=== PATIENT | female | born 1940 | race Caucasian/White ===

== ENCOUNTER → 2016-10-13 | Outpatient (CLI) | payer MEDICARE, BC ==
[2016-10-13 13:41] VITALS: BP 101/62; PULSE 77; RESP 16; TEMP 98.1; BMI 40.9
[2016-10-13 15:19] LABS: CH 30.7; CHCM 32.9; HCT 38.6 % (34.0-46.0); HDW 2.41; HGB 12.6 gm/dL (11.4-16.0); MCH 30.5 pg (25.0-35.0); MCHC 32.6 g/dL (31.0-37.0); MCV 93.6 fL (80.0-100.0); Mean Platelet Volume 6.8; RBC 4.12 m/uL (3.80-5.40); RDW 12.6 % (11.5-15.5); WBC 8.8 k/uL (3.8-10.6)
[2016-10-13 15:42] LABS: ALT 26 U/L (9-52); AST 22 U/L (14-36); Alkaline Phosphatase 92 U/L (38-126); Anion Gap 13 mmol/L; Blood Urea Nitrogen 9 mg/dL (7-17); Calcium 9.9 mg/dL (8.4-10.2); Carbon Dioxide 24 mmol/L (22-30); Chloride 104 mmol/L (98-107); Cholesterol 206 mg/dL (<200); Glucose 96 mg/dL (74-99); HDL Cholesterol 69 mg/dL (40-60); Iron 61 ug/dL (37-170); Non-African American GFR(MDRD) >60 (>60 ml/min/1.73 sqM); Potassium 4.6 mmol/L (3.5-5.1); Sodium 141 mmol/L (137-145); Total Bilirubin 0.6 mg/dL (0.2-1.3); Total Protein 7.2 g/dL (6.3-8.2); Triglycerides 118 mg/dL (<150)
[2016-10-13 15:51] LABS: % Iron Saturation 15.6 % (20-50); Total Iron Binding Capacity 392 ug/dL (265-497)
[2016-10-13 16:46] LABS: Vitamin B12 393 pg/mL
== END | disposition home or self-care (01) ==
LOC: BARWHC3 12:49
PROVIDERS: ATTEND Surgery Plastic and Reconstructive Surgery
DX: Z01.818 Encounter for other preprocedural examination (principal); Z68.41 Body mass index [BMI] 40.0-44.9, adult; E66.01 Morbid (severe) obesity due to excess calories; E88.81 Metabolic syndrome and other insulin resistance; D50.8 Other iron deficiency anemias; E44.0 Moderate protein-calorie malnutrition; E55.9 Vitamin D deficiency, unspecified; I11.9 Hypertensive heart disease without heart failure; G47.30 Sleep apnea, unspecified
CPT/HCPCS: 84425; 80061; 80053; 82607; 82728; 83036; 82746; 83540; 83550; 84443; 85027; 82306; 36415; G0463; 99201

== ENCOUNTER → 2016-11-08 | Outpatient (CLI) | payer MEDICARE, BC ==
[2016-11-08 17:28] VITALS: BMI 43.0
== END | disposition home or self-care (01) ==
LOC: BARWHC3 08:26
PROVIDERS: ATTEND Surgery Plastic and Reconstructive Surgery
DX: E66.01 Morbid (severe) obesity due to excess calories (principal); Z71.3 Dietary counseling and surveillance
CPT/HCPCS: 97804

== ENCOUNTER → 2016-11-29 | Outpatient (CLI) | payer MEDICARE, BC ==
[2016-11-29 10:09] LABS: Basophils # (A) 0.1 k/uL (0-0.2); Basophils % (A) 1 %; CH 30.4; CHCM 32.7; Eosinophils # (A) 0.4 k/uL (0-0.7); Eosinophils % (A) 4 %; HCT 46.6 % (34.0-46.0); HDW 2.17; HGB 14.9 gm/dL (11.4-16.0); Luc # (Auto) 0.23; Luc % (Auto) 3; Lymphocytes # (A) 1.5 k/uL (1.0-4.8); Lymphocytes % (A) 17 %; MCH 29.9 pg (25.0-35.0); MCV 93.4 fL (80.0-100.0); Mean Platelet Volume 7.6; Monocytes # (A) 0.7 k/uL (0-1.0); Monocytes % (A) 8 %; Neutrophils # (A) 6.1 k/uL (1.3-7.7); Neutrophils % (A) 68 %; RBC 4.99 m/uL (3.80-5.40); RDW 13.5 % (11.5-15.5); WBC 8.9 k/uL (3.8-10.6); WBC (Perox) 9.07
[2016-11-29 10:15] LABS: ALT 28 U/L (9-52); AST 23 U/L (14-36); Alkaline Phosphatase 68 U/L (38-126); Anion Gap 15 mmol/L; Blood Urea Nitrogen 17 mg/dL (7-17); Carbon Dioxide 24 mmol/L (22-30); Chloride 98 mmol/L (98-107); Glucose 80 mg/dL (74-99); Non-African American GFR(MDRD) 57 (>60 ml/min/1.73 sqM); Potassium 4.4 mmol/L (3.5-5.1); Sodium 137 mmol/L (137-145); Total Bilirubin 0.6 mg/dL (0.2-1.3); Total Protein 7.1 g/dL (6.3-8.2)
== END | disposition home or self-care (01) ==
LOC: LABPAT 09:23
PROVIDERS: ATTEND Surgery Plastic and Reconstructive Surgery
DX: Z01.812 Encounter for preprocedural laboratory examination (principal)
CPT/HCPCS: 80053; 85025

== ENCOUNTER 2016-12-06 05:59 | Inpatient (IN) | payer MEDICARE, BC ==
[~2016-12-06 05:59] MED LIST: ACETAMINOPHEN IV (For NPO) 1,000 MG in EMPTY BAG 1 BAG IVPB ONE; AMPICILLIN-SULBACTAM 3 GM in SODIUM CHLORIDE 0.9% 100 ML IVPB ONE; CHLORHEXIDINE GLUCONATE 15 ML CUP MUCOUS MEM ONE; DEXAMETHASONE SOD PHOSPHATE 10 MG/ML 1 ML VIAL IV ONE; ENOXAPARIN 40 MG/0.4 ML SYRINGE SQ STA; HYDROmorphone 1 MG/ML 1 ML SYRINGE IVP PRN; MIDAZOLAM 2 MG/2 ML VIAL IV PRN; ONDANSETRON 4 MG/2 ML VIAL IVP ONE; PANTOPRAZOLE 40 MG/10 ML VIAL IV STA; ceFAZolin 2 GM in SODIUM CHLORIDE 0.9% 100 ML IVPB ONE
[2016-12-06] MEDS ORDERED: LIDOCAINE 1% 20 ML VIAL (10MG/ML) FOR IV START INTRADERMA ONE (06:45)
[2016-12-06] MEDS: LACTATED RINGERS 1,000 ML IV SCH ×5 (06:45→22:57)
[2016-12-06] MEDS ORDERED: ALBUTEROL NEBULIZED 2.5 MG/3 ML INHALATION STA (06:56)
--- NOTE | 2016-12-06 07:21 | P.GSHP ---
History of Present Illness H&P Date: 12/06/16 CHIEF COMPLAINT: Morbid obesity. HISTORY OF PRESENT ILLNESS: The patient is a 76-year-old female who presents with a long-standing history of morbid obesity. At her height of 5 foot 3.75, her ideal body weight is 140 pounds. Today she comes in at her heaviest of 237 pounds. She is 97 pounds overweight. She reports developing lower back pain including hip pain from her obesity. She has also developed obstructive sleep apnea as well as hypertensive heart disease. She has tried weight loss with minimal success with caloric restriction. She has a previous history of open thoracic approach diaphragmatic hiatal hernia in 2013 now with recurrence and with severe gastroesophageal reflux disease. For definitive management, she is looking into the anti-reflux operation such as Jacob-en-Y gastric bypass. She denies any family history or personal history of Crohn's disease, gastrointestinal cancer, DVTs or pulmonary embolisms. She has completed pulmonary risk assessment with her senior clinical sas programmer to control her asthma. PAST MEDICAL HISTORY: 1. Morbid obesity. 2. Hypertensive heart disease. 3. Symptomatic paraesophageal diaphragmatic hiatal hernia. 4. Gastroesophageal reflux disease. 5. Chronic obstructive pulmonary disease with asthma. 6. Obstructive sleep apnea. 7. Hyperlipidemia. 8. Depression. 9. History of skin cancer. 10. Motion sickness. PAST SURGICAL HISTORY: 1. Open thoracic approach diaphragmatic hiatal hernia in 2013 at [facility]. 2. Appendectomy. 3. Bladder suspension. 4. Excision of skin cancer. 5. Hysterectomy. HOME MEDICATIONS: 1. Norvasc. 2. Omeprazole. 3. Pravachol. 4. Lopressor. 5. Singulair. 6. Prinivil. 7. Celexa. 8. Xanax. 9. Albuterol inhaler. 10. Albuterol nebulizer. ALLERGIES: 1. Adenosine. 2. Iodine. 3. Latex. SOCIAL HISTORY: No active tobacco use. FAMILY HISTORY: Denies any DVTs, pulmonary embolisms in her family. Denies any ulcerative colitis disease or Crohn's. She does have a family history of morbid obesity. REVIEW OF ORGAN SYSTEMS: CONSTITUTIONAL: At her height of 5 foot 3.75, her ideal body weight is 140 pounds. She comes in at her heaviest of 237 pounds. She is 97 pounds overweight. HEENT: Denies any active troubles with vision or hearing. Has dysphagia from recurrent diaphragmatic hiatal hernia. ENDOCRINE: No reports of diabetes or hypothyroidism. CARDIOVASCULAR: No reports of palpitations or heart attacks or chest pain. RESPIRATORY: History of asthma including sleep apnea. GI: Denies any bright red blood per rectum, diarrhea or constipation. Has gastroesophageal reflux disease. MUSCULOSKELETAL: Describes generalized muscle aches, including lower back pain or joint pain. NEURO: There were no reports of headaches or seizure disorders. PSYCH: Has depression without suicidal ideation. Has anxiety. HEMATOLOGIC: Denies any abnormal bleeding or bruising. PHYSICAL EXAM: VITAL SIGNS: height 5 foot 3.75 inches, weight 237 pounds. BMI 41.0. GENERAL: Well-developed female in no acute distress. HEENT: No scleral icterus. Extraocular was grossly intact. No nasal drainage. NECK: Supple without lymphadenopathy. CHEST: Nonlabored respirations with equal bilateral excursions. CARDIOVASCULAR: Regular rate. Distal 2+ pulses. ABDOMEN: Obese, soft, nontender, nondistended. MUSCULOSKELETAL: No clubbing, cyanosis, or edema. Gross strength 5/5 distal lower extremities. NEURO: No focal or lateralizing signs. Cranial nerves 2 through 12 grossly within normal limits. PSYCH: Appropriate affect. Alert and oriented to person, place and time. ASSESSMENT: 1. Morbid obesity due to excess calories. 2. Body mass index of 41.0 2. Hypertensive heart disease. 3. Symptomatic paraesophageal diaphragmatic hiatal hernia. 4. Gastroesophageal reflux disease. 5. Chronic obstructive pulmonary disease with asthma. 6. Obstructive sleep apnea. 7. Hyperlipidemia. 8. Depression. 9. History of skin cancer. 10. Motion sickness. 11. Osteoarthritis of the bilateral hips. 12. Osteoarthritis of the bilateral knees. 13. Vitamin D deficiency. PLAN: 1. She has history of previous diaphragmatic hiatal hernia which puts her at risk for complications such as bleeding, infection, stricture, leaks. As such, this is a revisional procedure with higher risks. 2. She has completed pulmonary risk assessment for the severity of her COPD.. 3. The [place] [facility] data for the band, sleeve, gastric bypass were reviewed including complications. With her history of previous gastric surgery, a gastric bypass is being sought as an anti-reflux operation as well. 3. Inpatient hospitalization greater than 2 days anticipated. 4. DVT prophylaxis. 5. Antibiotic prophylaxis. 6. With her previous history of gastric surgery, ideal approach with a robotic- assisted laparoscopic surgery was reviewed in detail. Anticipated length of surgery beyond 4 hours also discussed. Past Medical History Past Medical History: Asthma, Cancer, GERD/Reflux, Hyperlipidemia, Hypertension Additional Past Medical History / Comment(s): hiatal hernia, hx skin cancer History of Any Multi-Drug Resistant Organisms: None Reported Past Surgical History: Appendectomy, Bladder Surgery, Hernia Repair, Hysterectomy Additional Past Surgical History / Comment(s): hiatal hernia repair Past Anesthesia/Blood Transfusion Reactions: Motion Sickness Additional Past Anesthesia/Blood Transfusion Reaction / Comment(s): no blood tranfusions Past Psychological History: No Psychological Hx Reported, Depression Past Alcohol Use History: Rare Additional Past Alcohol Use History / Comment(s): only drinks one drink at occasional weddings - Past Family History Mother Family Medical History: No Reported History Additional Family Medical History / Comment(s): at age 93 from natural causes Father Family Medical History: Coronary Artery Disease (CAD) Additional Family Medical History / Comment(s): at age 63 from suspected heart attack Brother(s) Family Medical History: Cancer Medications and Allergies Home Medications Medication Instructions Recorded Confirmed Type Albuterol Nebulized [Ventolin 2.5 mg INHALATION BID PRN 03/23/16 11/26/16 History Nebulized] Citalopram Hydrobromide [CeleXA] 20 mg PO HS 03/23/16 11/26/16 History Lisinopril [Prinivil] 5 mg PO HS 03/23/16 11/26/16 History Metoprolol Tartrate [Lopressor] 25 mg PO BID 03/23/16 11/26/16 History Pravastatin Sodium [Pravachol] 80 mg PO HS 03/23/16 11/26/16 History amLODIPine [Norvasc] 10 mg PO HS 03/23/16 11/26/16 History ALPRAZolam [Xanax] 0.25 mg PO Q6HR PRN 10/13/16 11/26/16 History Albuterol Inhaler [Ventolin Hfa 1 - 2 puff INHALATION Q6HR PRN 10/13/16 History Inhaler] Montelukast [Singulair] 10 mg PO HS 10/13/16 11/26/16 History Ipratropium Nebulized [Atrovent 0.5 mg INHALATION DAILY PRN 11/26/16 11/26/16 History Nebulized] Omeprazole 40 mg PO DAILY PRN 11/26/16 11/26/16 History Allergies Allergy/AdvReac Type Severity Reaction Status Date / Time adenosine Allergy Anaphylaxis Verified 10/13/16 13:30 iodine Allergy Rash/Hives Verified 03/23/16 08:33 latex Allergy Itching Verified 03/23/16 08:40 nickel Allergy Rash/Hives Verified 11/26/16 11:46 Surgical - Exam Vital Signs Temp Pulse Resp BP Pulse Ox 97.1 F L 68 16 120/72 93 L 12/06/16 06:22 12/06/16 06:22 12/06/16 06:22 12/06/16 06:22 12/06/16 06:22
[2016-12-06] MEDS ORDERED: ROCURONIUM BROMIDE 10 MG/ML 10 ML VIAL IV ONE (07:36)
[2016-12-06] MEDS ORDERED: PHENYLEPHRINE-0.9% NACL SYG 1 MG/10 ML SYRINGE ONE (07:36)
[2016-12-06] MEDS ORDERED: fentaNYL (PF) 50 MCG/ML 2 ML AMP ONE (07:36)
[2016-12-06] MEDS ORDERED: ePHEDrine SULFATE/0.9% NACL/PF 50 MG/5 ML SYRINGE IV ONE (07:36)
[2016-12-06] MEDS ORDERED: GLYCOPYRROLATE 0.2 MG/ML 2 ML VIAL ONE (07:36)
[2016-12-06] MEDS ORDERED: MIDAZOLAM 2 MG/2 ML VIAL ONE (07:36)
[2016-12-06] MEDS ORDERED: NEOSTIGMINE 1 MG/ML 10 ML VIAL ONE (07:36)
[2016-12-06] MEDS ORDERED: PROPOFOL 10 MG/ML 20 ML VIAL IV ONE (07:36)
[2016-12-06] MEDS ORDERED: LIDOCAINE 1% INJ 10MG/ML (20 ML MDV) ONE (07:36)
[2016-12-06] MEDS ORDERED: SUCCINYLCHOLINE CHLORIDE 100 MG/5 ML SYR IV ONE (07:36)
[2016-12-06] MEDS ORDERED: BUPIVACAINE (PF) 0.5% 30 ML VIAL SQ ONE (09:00)
[2016-12-06] MEDS ORDERED: LACTATED RINGERS 1,000 ML IV ONE ×2 (09:18→13:37)
[2016-12-06] MEDS ORDERED: NALOXONE 0.4 MG/ML 1 ML VIAL IV PRN (15:15)
--- NOTE | 2016-12-06 15:34 | P.PCN ---
Date of Procedure: 12/06/16 Preoperative Diagnosis: Morbid obesity, BMI 40, recurrent paraesophageal diaphragmatic hiatal hernia, GERD Postoperative Diagnosis: Same, peritoneal adhesions, recurrent 6 cm incarcerated diaphragmatic hiatal hernia, history of Rylee fundoplasty Procedure(s) Performed: 1. Laparoscopic reduction and repair of recurrent incarcerated diaphragmatic paraesophageal hiatal hernia 6 cm 2. Laparoscopic takedown of previous Rylee fundoplasty with partial gastrectomy superior pole of the stomach. 3. Laparoscopic gastric bypass 100 cm Jacob limb, 25 mm Orvil 4. Intraoperative esophagogastrojejunoscopy 5. Laparoscopic lysis of adhesions over 3 hours 6. Partial gastrectomy superior pole stomach. Implants: [employer] Biopatch A 8 x 8 cm Anesthesia: GETA, local Surgeon: Nika Arriaga Estimated Blood Loss (ml): 25 Pathology: other (Partial gastrectomy) Condition: stable Disposition: floor Indications for Procedure: Operative Findings: 1. Incarcerated Rylee fundoplasty along the mediastinum required extensive lysis of adhesions and takedown over 3-1/2-4 hours from recurrent paraesophageal diaphragmatic hiatal hernia 6 cm. 2. Repair of the hiatus performed consistent with 56-Pashto bougie, 6 inch V- VLOC stitch used. 3. 8 staplers used for pouch and partial gastrectomy 4. Negative leak test with generous sized donuts 5. Orvil consistent with 25 mm Description of Procedure:
[2016-12-06 15:52] VITALS: BMI 39.2
[2016-12-06] MEDS: 0.9% NACL WITH KCL 20 MEQ/L 1,000 ML IV SCH (16:46)
[2016-12-06] MEDS: HYOSCYAMINE ORAL DROPS 1.875 MG/15 ML BOTTLE PO SCH (18:04)
[2016-12-06] MEDS: SIMETHICONE 40 MG/0.6 ML DROPS 2,000 MG/30 ML BOTTLE PO SCH (18:04)
[2016-12-06] MEDS: ALBUTEROL NEBULIZED 2.5 MG/3 ML INHALATION SCH (19:40)
[2016-12-06] MEDS: HYDROmorphone 1 MG/ML 1 ML SYRINGE IVP PRN (20:23)
[2016-12-06] MEDS ORDERED: ONDANSETRON 4 MG/2 ML VIAL IVP PRN (20:30)
[2016-12-06] MEDS: METOCLOPRAMIDE 5 MG/ML 2 ML VIAL IVP SCH (21:36)
[2016-12-06] MEDS: MAGNESIUM SULFATE-D5W PMX 1 GM in DEXTROSE/WATER 1 100ML.BAG IVPB SCH ×2 (21:36→23:48)
--- NOTE | 2016-12-06 22:59 | P.PN ---
Progress Note - Text Patient seen and evaluated this evening. She denies any increased abdominal pain. She is resting comfortably. Recommend nothing by mouth for the next 24- 48 hours. May have upper GI on Tuesday with start of clears.
[2016-12-07] MEDS: HYOSCYAMINE ORAL DROPS 1.875 MG/15 ML BOTTLE PO SCH ×4 (00:19→17:33)
[2016-12-07] MEDS: SIMETHICONE 40 MG/0.6 ML DROPS 2,000 MG/30 ML BOTTLE PO SCH ×4 (00:20→17:34)
[2016-12-07] MEDS: 0.9% NACL WITH KCL 20 MEQ/L 1,000 ML IV SCH ×2 (02:09→07:30)
[2016-12-07] MEDS: METOCLOPRAMIDE 5 MG/ML 2 ML VIAL IVP SCH ×4 (03:04→21:30)
[2016-12-07 07:23] LABS: Basophils % (A) 0 %; CH 30.5; CHCM 32.1; Eosinophils % (A) 0 %; HCT 38.2 % (34.0-46.0); HDW 2.19; Luc # (Auto) 0.19; Luc % (Auto) 2; Lymphocytes # (A) 0.7 k/uL (1.0-4.8); Lymphocytes % (A) 6 %; MCH 29.9 pg (25.0-35.0); MCHC 31.3 g/dL (31.0-37.0); MCV 95.5 fL (80.0-100.0); Mean Platelet Volume 7.4; Monocytes # (A) 0.7 k/uL (0-1.0); Monocytes % (A) 6 %; Neutrophils # (A) 9.3 k/uL (1.3-7.7); Neutrophils % (A) 85 %; RDW 14.1 % (11.5-15.5); WBC 10.9 k/uL (3.8-10.6); WBC (Perox) 11.14
[2016-12-07] MEDS: LACTATED RINGERS 1,000 ML IV SCH ×4 (07:30→23:22)
[2016-12-07 08:12] LABS: Anion Gap 11 mmol/L; Blood Urea Nitrogen 10 mg/dL (7-17); Calcium 8.4 mg/dL (8.4-10.2); Carbon Dioxide 19 mmol/L (22-30); Chloride 108 mmol/L (98-107); Magnesium 2.1 mg/dL (1.6-2.3); Non-African American GFR(MDRD) >60 (>60 ml/min/1.73 sqM); Potassium 4.6 mmol/L (3.5-5.1); Sodium 138 mmol/L (137-145)
[2016-12-07] MEDS ORDERED: SODIUM CHLORIDE 0.9% 1,000 ML BAG ONE (08:23)
[2016-12-07] MEDS: ALBUTEROL NEBULIZED 2.5 MG/3 ML INHALATION SCH ×5 (09:07→19:52)
[2016-12-07] MEDS: HYDROmorphone 1 MG/ML 1 ML SYRINGE IVP PRN ×3 (09:12→17:48)
[2016-12-07] MEDS: ENOXAPARIN 40 MG/0.4 ML SYRINGE SQ SCH (09:16)
[2016-12-07] MEDS: PANTOPRAZOLE 40 MG/10 ML VIAL IV SCH (09:23)
[2016-12-07] MEDS: 1: MVI, ADULT NO.4 WITH VIT K 10 ML, THIAMINE 100 MG, FOLIC ACID 1 MG, POTASSIUM CHLORID IV SCH ×12 (11:19→20:30)
--- NOTE | 2016-12-07 15:10 | FL ---
EXAMINATION TYPE: FL UGI w esophagus DATE OF EXAM: 12/07/2016 COMPARISON: NONE HISTORY: Postop TECHNIQUE: A single contrast UGI study is performed. FINDINGS: Casting Operator image of the abdomen shows no gross abnormality. The esophagus shows normal motility and emptying into the stomach. No evidence of hiatal hernia or s tricture noted. Postsurgical changes are noted with contrast seen extending into the small bowel. There is a surgical drain but no evidence of extravasation. Delayed images demonstrate contrast to be contained with an 1 appears to be dilated small bowel loops. Additional dilated small bowel loops right may represent p ostoperative ileus. Subsegmental consolidation of both lung bases noted correlate for atelectasis postoperatively. Tiny e ffusion suspected. . IMPRESSION: 1. Postsurgical change with no evidence to suggest obstruction or extravasation. There are dilated sm all bowel loops with air-fluid levels on one of which fills with contrast. Postoperative ileus is fav ored over obstruction. Correlate clinically.
--- NOTE | 2016-12-07 15:15 | XR ---
EXAMINATION TYPE: XR chest 2V DATE OF EXAM: 12/07/2016 COMPARISON: Prior chest x-ray 01/05/2011 HISTORY: COPD TECHNIQUE: Frontal and lateral views of the chest are obtained. FINDINGS: There is been interval development of retrocardiac increased density. There is blunting of the posterior costophrenic angle. Bandlike area of increased attenuation present in the left midlung . There is no evident pneumothorax. Heart is enlarged although patient is rotated which may accentuat e appearance. There are overlying cardiac leads. IMPRESSION: Findings of hiatal hernia probable left lower lobe atelectasis versus pneumonia and asso ciated follow-up is recommended. Heart size may be accentuated by rotation.
[2016-12-07] MEDS: HYDROcodone/APAP 15 ML SOLUTION PO PRN (21:33)
[2016-12-07] MEDS ORDERED: SODIUM CHLORIDE 0.9% 1,000 ML IV ONE (22:15)
--- NOTE | 2016-12-07 22:15 | P.PN ---
Subjective Principal diagnosis: Morbid obesity She is postop day 1 status post repair of recurrent incarcerated paraesophageal hiatal hernia including partial gastrectomy, takedown Rylee fundoplasty, extensive lysis of adhesions, gastric bypass including intraoperative esophagogastrojejunoscopy. She passed her esophagram today. She reports complete resolution of all gastroesophageal reflux disease. No reports of increased chest discomfort. No reports of increased abdominal pain. Tonight she has problems with urinary retention. She was bladder scanned with over 220 mL. Otherwise, she is doing extremely well. Objective - Vital Signs Vital signs: Vital Signs Temp 97.6 F 12/07/16 14:20 Pulse 96 12/07/16 20:04 Resp 17 12/07/16 14:20 BP 129/68 12/07/16 14:20 Pulse Ox 94 L 12/07/16 15:57 Intake & Output 12/07/16 12/07/16 12/08/16 06:59 18:59 06:59 Intake Total 1950 1000 Output Total 1040 320 Balance 910 680 Weight 100.5 kg Intake: Intake, IV Titration 1650 800 Amount 0.9% NaCl with KCl 20 Meq 300 /l 1,000 ml @ 100 mls/hr IV .BY DURATION KANDICE Rx#: [id number] 0.9% NaCl with KCl 20 Meq 1650 /l 1,000 ml @ 150 mls/hr IV .[id number] KANDICE Rx#: [id number] Mvi, Adult No.4 with Vit 500 K 10 ml Thiamine 100 mg Folic Acid 1 mg Potassium Chloride 20 meq In Sodium Chloride 0.9% 1, 000 ml @ 100 mls/hr IV . BY DURATION KANDICE Rx#: [id number] Oral 300 200 Output: Drainage 40 20 Left Abdomen 40 20 Urine 1000 300 Uretheral (Brady) 300 Other: Voiding Method Indwelling Catheter - Exam GENERAL: Well developed and in no acute distress. Pleasant. HEENT: No sclera icterus. Extraocular movements grossly intact. Moist buccal mucosa. Head is atraumatic, normocephalic. Hears conversational speech. No nasal drainage. NECK: Supple without lymphadenopathy. CHEST: Non-labored respirations and equal bilateral excursions. CARDIOVASCULAR: Regular rate and rhythm. Palpable 2+ radial pulses. ABDOMEN: Soft. Nondistended. Laparoscopic sites clean dry and intact with Dermabond. LOUIE adjacent serosanguineous. MUSCULOSKELETAL: No clubbing, cyanosis or edema. NEUROLOGIC: No focal or lateralizing signs. PSYCH: Appropriate affect. Alert and oriented to person, place and time. SKIN: Good skin turgor. Will perfused. - Labs CBC & Chem 7: 12/07/16 07:02 12/07/16 07:02 Labs: Abnormal Lab Results - Last 24 Hours (Table) 12/07/16 12/07/16 Range/Units 07:02 07:02 WBC 10.9 H (3.8-10.6) k/uL Neutrophils # 9.3 H (1.3-7.7) k/uL Lymphocytes # 0.7 L (1.0-4.8) k/uL Chloride 108 H (98-107) mmol/L Carbon Dioxide 19 L (22-30) mmol/L - Imaging and Cardiology Chest x-ray: report reviewed (Esophagram and chest x-ray images were reviewed by me. I agree with esophagram evaluation of no leaks or extravasation or obstruction identified. I disagree with the chest x-ray as there is no recurrent hiatal hernia.), image reviewed Assessment and Plan (1) Morbid obesity with BMI of 40.0-44.9, adult Status: Acute (2) Paraesophageal hernia with obstruction but no gangrene Status: Acute (3) Incarcerated paraesophageal hernia Status: Acute (4) S/P repair of paraesophageal hernia Status: Acute (5) Recurrent hernia Status: Acute (6) Hypertensive heart disease Status: Acute (7) Asthma Status: Acute (8) Peritoneal adhesions Status: Acute (9) S/P gastric bypass Status: Acute (10) Urinary retention with incomplete bladder emptying Status: Acute (11) Depression Status: Acute Plan: 1. She has urinary retention and will start Flomax. 2. May start medications in the morning alongside with bariatric liquids. 3. Recommend IV fluid bolus for concentrated urine. 4. Potential discharge home within 24 hours pending resolution of urinary retention and tolerating medications as well as diet. 5. Agree with home health care evaluation with LOUIE zuniga.
[2016-12-07] MEDS ORDERED: TAMSULOSIN 0.4 MG CAP.ER.24H PO STA (22:16)
[2016-12-08] MEDS: SIMETHICONE 40 MG/0.6 ML DROPS 2,000 MG/30 ML BOTTLE PO SCH ×4 (00:12→17:03)
[2016-12-08] MEDS: HYOSCYAMINE ORAL DROPS 1.875 MG/15 ML BOTTLE PO SCH ×4 (00:12→17:04)
[2016-12-08 02:03] VITALS: RESP 16
[2016-12-08] MEDS: METOCLOPRAMIDE 5 MG/ML 2 ML VIAL IVP SCH ×3 (03:07→16:12)
[2016-12-08] MEDS: HYDROcodone/APAP 15 ML SOLUTION PO PRN ×3 (05:28→16:14)
[2016-12-08] MEDS ORDERED: SODIUM CHLORIDE 0.9% 1,000 ML BAG ONE (05:55)
[2016-12-08] MEDS: 1: MVI, ADULT NO.4 WITH VIT K 10 ML, THIAMINE 100 MG, FOLIC ACID 1 MG, POTASSIUM CHLORID IV SCH ×6 (05:55)
[2016-12-08] MEDS: LACTATED RINGERS 1,000 ML IV SCH ×3 (06:21→13:27)
[2016-12-08] MEDS ORDERED: TAMSULOSIN 0.4 MG CAP.ER.24H PO SCH (08:30)
[2016-12-08] MEDS: ALBUTEROL NEBULIZED 2.5 MG/3 ML INHALATION SCH ×4 (08:45→20:03)
[2016-12-08] MEDS ORDERED: METOPROLOL TARTRATE 25 MG TAB PO SCH (09:00)
[2016-12-08] MEDS: PANTOPRAZOLE 40 MG/10 ML VIAL IV SCH (09:36)
[2016-12-08] MEDS: ENOXAPARIN 40 MG/0.4 ML SYRINGE SQ SCH (09:36)
[2016-12-08 13:49] LABS: Basophils # (A) 0.1 k/uL (0-0.2); Basophils % (A) 0 %; CH 30.5; CHCM 31.4; Eosinophils # (A) 0.1 k/uL (0-0.7); Eosinophils % (A) 1 %; HCT 35.1 % (34.0-46.0); HDW 2.24; HGB 10.9 gm/dL (11.4-16.0); Luc # (Auto) 0.17; Luc % (Auto) 2; Lymphocytes # (A) 0.8 k/uL (1.0-4.8); Lymphocytes % (A) 8 %; MCH 30.4 pg (25.0-35.0); MCHC 31.1 g/dL (31.0-37.0); MCV 97.6 fL (80.0-100.0); Mean Platelet Volume 7.8; Monocytes # (A) 0.6 k/uL (0-1.0); Monocytes % (A) 6 %; Neutrophils # (A) 8.7 k/uL (1.3-7.7); Neutrophils % (A) 84 %; RDW 14.2 % (11.5-15.5); WBC 10.4 k/uL (3.8-10.6); WBC (Perox) 11.43
[2016-12-08 14:00] LABS: Anion Gap 7 mmol/L; Blood Urea Nitrogen 11 mg/dL (7-17); Calcium 8.6 mg/dL (8.4-10.2); Carbon Dioxide 24 mmol/L (22-30); Chloride 110 mmol/L (98-107); Glucose 97 mg/dL (74-99); Non-African American GFR(MDRD) >60 (>60 ml/min/1.73 sqM); Phosphorous 1.5 mg/dL (2.5-4.5); Potassium 4.4 mmol/L (3.5-5.1); Sodium 141 mmol/L (137-145)
[2016-12-08 15:11] VITALS: BP 144/74; TEMP 97.9
--- NOTE | 2016-12-08 15:27 | P.PN ---
Subjective 76-year-old female seen and evaluated this morning currently sitting up in a chair. Patient had been up ambulating from the bed to the bathroom. Patient stating passing gas. Patient did have an episode urinary retention last night. BladderScan over 220. Post void residual this morning 215 This morning the patient reports the esophageal reflux symptoms have resolved. Nursing reports that the patient did urinate this morning no stool patient is denying any dizziness lightheadedness chest pain or shortness of breath when questioning. Patient is postop repair of a recurrent incarcerated. Esophageal hiatal hernia including partial gastrectomy and takedown of luís fundoplasty, extensive lysis of adhesions, gastric bypass including interoperative esophagogastrojejunoscopy.. Objective - Vital Signs Vital signs: Vital Signs Temp 98.2 F 12/08/16 02:01 Pulse 92 12/08/16 12:23 Resp 16 12/08/16 02:01 BP 130/67 12/08/16 02:01 Pulse Ox 92 L 12/08/16 02:01 Intake & Output 12/07/16 12/08/16 12/08/16 18:59 06:59 18:59 Intake Total 1000 2446.2 60 Output Total 320 265 215 Balance 680 2181.2 -155 Weight 100.5 kg Intake: Intake, IV Titration 800 2396.2 Amount 0.9% NaCl with KCl 20 Meq 300 /l 1,000 ml @ 100 mls/hr IV .BY DURATION KANDICE Rx#: [id number] Lactated Ringers 1,000 ml 1375 @ 125 mls/hr IV .Q8H KANDICE Rx#:[id number] Mvi, Adult No.4 with Vit 500 1021.2 K 10 ml Thiamine 100 mg Folic Acid 1 mg Potassium Chloride 20 meq In Sodium Chloride 0.9% 1, 000 ml @ 100 mls/hr IV . BY DURATION KANDICE Rx#: [id number] Oral 200 50 60 Output: Drainage 20 40 Left Abdomen 20 40 Urine 300 225 Uretheral (Brady) 300 Post Void Residual 215 Other: Voiding Method Indwelling Catheter # Voids 1 - Exam Physical exam 76-year-old female sitting up in a chair in the room talkative appears in no acute distress Lungs essentially clear on room air no shortness of breath Heart S1-S2 audible regular denying chest pain Abdomen soft nondistended laparoscopic sites no redness clean dry with Dermabond in place. [facility] serous sanguinous no stool no reports of nausea vomiting Skin no evidence of edema - Labs CBC & Chem 7: 12/08/16 13:30 12/08/16 13:30 Assessment and Plan Plan: Assessment and Plan (1) Morbid obesity with BMI of 40.0-44.9, adult Status: Acute (2) Paraesophageal hernia with obstruction but no gangrene Status: Acute (3) Incarcerated paraesophageal hernia Status: Acute (4) S/P repair of paraesophageal hernia Status: Acute (5) Recurrent hernia Status: Acute (6) Hypertensive heart disease Status: Acute (7) Asthma Status: Acute (8) Peritoneal adhesions Status: Acute (9) S/P gastric bypass Status: Acute (10) Urinary retention with incomplete bladder emptying Status: Acute (11) Depression Status: Acute Plan Continue home medication with bariatric liquids Home care eval with a LOUIE drain Monitor for urinary retention continue Flomax Check post void residuals address as indicated Possible discharge in the next 24 hours The above impression and plan of care have been discussed and directed by signing physician. Sarah Resendiz nurse practitioner acting as scribe for signing physician.
[2016-12-08 15:54] VITALS: PULSE 76
--- NOTE | 2016-12-08 19:42 | P.PN ---
Progress Note - Text Patient seen and evaluated this evening. She reports that she wants to go home. Her daughter is at bedside. She reports feeling much better today than yesterday. She is tolerating liquids. She is urinating well. I have gone over LOUIE teaching. Additionally she has medications at home. Patient may be discharged home on the condition of follow-up in the bariatric center tomorrow morning.
[2016-12-08] MEDS ORDERED: LISINOPRIL 5 MG TAB PO SCH (21:00)
[2016-12-08] MEDS ORDERED: amLODIPine 10 MG TAB PO SCH (21:00)
[2016-12-08] MEDS ORDERED: MONTELUKAST 10 MG TAB PO SCH (21:00)
--- NOTE | 2017-01-06 20:41 | P.OP ---
Date of Procedure: 12/06/16 Preoperative Diagnosis: Postoperative Diagnosis: Procedure(s) Performed: Implants: Indications for Procedure: Operative Findings: Description of Procedure: SURGEON: RASHAWN VYAS MD NATIONAL SALES REPRESENTATIVE: 1. Kaitlin Masterson PREOPERATIVE DIAGNOSES: 1. Morbid obesity due to excess calories. 2. Body mass index of 41.0 2. Hypertensive heart disease. 3. Symptomatic paraesophageal diaphragmatic hiatal hernia. 4. Gastroesophageal reflux disease. 5. Chronic obstructive pulmonary disease with asthma. 6. Obstructive sleep apnea. 7. Hyperlipidemia. 8. Depression. 9. History of skin cancer. 10. Motion sickness. 11. Osteoarthritis of the bilateral hips. 12. Osteoarthritis of the bilateral knees. 13. Vitamin D deficiency. POSTOPERATIVE DIAGNOSES: 1. Morbid obesity due to excess calories. 2. Body mass index of 41.0 2. Hypertensive heart disease. 3. Symptomatic paraesophageal diaphragmatic hiatal hernia. 4. Gastroesophageal reflux disease. 5. Chronic obstructive pulmonary disease with asthma. 6. Obstructive sleep apnea. 7. Hyperlipidemia. 8. Depression. 9. History of skin cancer. 10. Motion sickness. 11. Osteoarthritis of the bilateral hips. 12. Osteoarthritis of the bilateral knees. 13. Vitamin D deficiency. 14. Incarcerated recurrent midline paraesophageal diaphragmatic hiatal hernia 6 cm with obstruction. 15. Previous Rylee fundoplication. OPERATION: 1. Laparoscopic takedown of previous Rylee fundoplasty with partial gastrectomy superior pole of the stomach. 2. Laparoscopic lysis of adhesions over 3 hours involving hill-gastric adhesions. 3. Laparoscopic reduction and repair of recurrent incarcerated midline diaphragmatic paraesophageal hiatal hernia 6 cm with mesh using [place] Biopatch A 8 x 8 cm 4. Laparoscopic Mayur-en-Y gastric bypass 100 cm antecolic, antegastric Mayur limb, 25 mm Orvil 5. Partial gastrectomy superior pole stomach. 6. Intraoperative esophagogastrojejunoscopy. Implants: [place] Biopatch A 8 x 8 cm ANESTHESIA: Gen. with local anesthetic ESTIMATED BLOOD LOSS: 25 mL SPECIMENS REMOVED: Partial gastrectomy Operative Findings: 1. Incarcerated Rylee fundoplasty along the mediastinum requiring extensive lysis of adhesions and takedown over 3-1/2 to 4 hours from recurrent paraesophageal diaphragmatic hiatal hernia 6 cm. 2. Repair of the hiatus performed consistent with 56-Moroccan bougie, 6 inch V- VLOC stitch used. 3. 8 staplers used for pouch and partial gastrectomy 4. Negative leak test with generous sized donuts 5. Orvil consistent with 25 mm INDICATIONS: The patient is a 76-year-old female who presents with a long- standing history of morbid obesity. At her height of 5 foot 3.75, her ideal body weight is 140 pounds. Today she comes in at 221.1 pounds. Her highest weight was 237 pounds with a body mass index of 41. She reports developing lower back pain including hip pain, severe gastroesophageal reflux disease with asthma, obstructive sleep apnea as well as hypertensive heart disease and morbid obesity. She has tried weight loss with minimal success despite caloric restriction. She has a previous history of open thoracic approach diaphragmatic hiatal hernia in 2013 from [facility] now with recurrence and with severe gastroesophageal reflux disease. For definitive management, she sought an anti-reflux operation such as Mayur-en-Y gastric bypass. She completed a 2 week high-protein low caloric diet and had lost 16 pounds. All surgical options for morbid obesity had been described using the [place] bariatric surgery collaborative data including comorbidity resolution and complication risk score. A second-generation bariatric consent form was described in detail including the possibility of protein malnutrition, leaks, gastrojejunal stricture, venous thrombosis, need for further surgery including the possibility of abandoning surgical intervention should risks outweigh benefits for which she demonstrated understanding. Benefits and risks of the procedure were described at length. Informed consent was obtained. DESCRIPTION: The patient was brought into the operating room theater. She was placed on a split leg table. Preoperatively she had received Lovenox subcutaneously for DVT prophylaxis. Additionally she had Peridex oral solution as an oral decontaminant. After general induction, the abdomen was prepped and draped in standard sterile fashion. A Brady catheter was placed. Ioban draping was placed along the abdomen. The robotic da Margaret Si system was prepped and primed. The xiphoid to umbilicus was measured. Xiphoid to the top of the hip was marked. Proposed port sites were marked with indelible marker along the anterior axillary line bilaterally, mid clavicular line bilaterally with each port marked 10 cm from each other. The malt specifications control assistant port was marked along the right lateral lower abdominal wall. The robotic stapler port was marked for the right midclavicular line. A 10 mm 0 degrees laparoscopic trocar entry was performed along the left upper quadrant. The abdomen was insufflated to 15 mmHg pressure she tolerated well. Diagnostic laparoscopy demonstrated no injury to bowel, viscera, or mesentery. The liver surface was unremarkable. A large prominent recurrent diaphragmatic hiatal hernia was identified along the anterior hiatus. A 12 mm camera port was placed left lateral to the umbilicus, 19 cm distal to the xiphoid. Next, 13-mm robot stapler port was placed along the right lateral abdominal wall. The camera 12-mm port extended length was maintained along the epigastrium. An 8 mm robotic port was placed along the left upper abdominal wall after exchanging the 12 mm port. Another 8 mm robotic trocar was placed along the left lateral abdominal wall for the robotic third arm. An malt specifications control assistant 12 mm trocar was placed along the right lower abdomen under direct visualization approximately 5-7 cm distal to the stapler port. All bariatric length robotic trochars were used. Please note that the ports were placed 18 to 20 cm away from the target anatomy of the stomach. Care was taken to check that each robotic arm was safely away from collision with the bed or the patient. At the epigastrium, a medium sized Simeon liver retractor was placed under direct visualization with the [employer] Park[employer] Cashier placed over the right shoulder of the patient. The additional third robotic arm was placed along the left aspect of the patient. The patient was repositioned in reverse Trendelenburg position after lowering the bed. The robot was docked over the patient. Using a grasper for arm 3, a grasper for arm 1, including vessel sealer for arm 2, the robotic system was docked and primed as described. Instruments were interchanged by the malt specifications control assistant including hook cautery, needle electric lift truck driver, and stapler. I had sat at the console. Next, the transverse mesocolon was reflected into the upper abdomen preparing for the jejunojejunostomy portion of the case. The ligament of Treitz was identified and measured 60 cm antegrade and marked using 2-0 Vicryl. The jejunum was divided at the 60 cm point above the suture measurement. The biliopancreatic limb was held in place. The Mayur limb was measured 100 cm in an antegrade fashion to avoid tension along the proposed gastrojejunal anastomosis. At 100 cm along the anti-mesenteric border of the Mayur limb, a jejunojejunostomy was proposed whereby enterotomies were created along the biliopancreatic limb including the Mayur limb using a Bovie cautery. A stay suture of 2-0 Vicryl was placed to align and create the anastomosis. The enterotomies along the anti-mesenteric borders were created followed by unidirectional fire from the patient's right side using 2 - 45 mm blue load Smart technology robotic stapler. The jejunojejunostomy was found to be hemostatic. The enterotomy was closed after horizontal mattress stitch of 2-0 silk used to elevate the enterotomy followed by closure with the robotic stapler blue load. The blind proximal jejunal limb was then tacked along the left upper abdominal wall of the patient using 2-0 Vicryl. Attention was now brought to addressing the recurrent diaphragmatic hiatal hernia. The patient's previous Rylee fundoplication was found incarcerated along the mediastinum. The gastrohepatic ligament however was unscarred. Sutures along the anterior hiatus was identified. The gastrohepatic ligament was cleaved using a vessel sealer. Dense adhesions along the distal esophagus was encountered including from the previous Rylee fundoplasty. Using careful dissection including with atraumatic graspers and vessel sealer tips, the Rylee fundoplasty was carefully taken down without injury to the bilateral vagi nerves. Extensive lysis of adhesions of over 3.5 hours of dissection was performed to safely free the previous Rylee fundoplasty from the distal esophagus. Separately, dense adhesions including from the hiatal hernia sac was encountered along the posterior portion of the esophagus with a lead point well into the mediastinum involving the mid esophagus. The esophagus was mobilized beyond the mid aspect of the esophagus. The phrenoesophageal ligament was mobilized. Once the esophagus and previous Rylee fundoplasty was circumferentially dissected free, the midline hiatus defect was well over 6 cm in size in measurement. The left and right crura was identified. Significant mobilization of the distal to mid esophagus into the mediastinum was performed. Circumferentially, the hernia sac was excised and brought into the peritoneal cavity. Care was taken to avoid any gastrotomy to the incarcerated upper pole of the stomach. To completely free the previous fundoplication, an initial creation of the gastric pouch was performed along the lesser curvature of the stomach between the third and fourth veins. The fundoplication was densely adherent along the posterior aspect of the esophagus and similarly carefully mobilized using blunt dissection. At least 8 fires of a 45 mm blue robotic stapler loads were used to create the gastric pouch including performing a partial gastrectomy of the superior pole the stomach with removal of the previous Rylee fundoplasty. Extensive lysis of adhesions including takedown Rylee fundoplasty and partial gastrectomy took well over 3-1/2 to 4 hours. Intra-abdominal length of esophagus was over 2 cm. A moderate size gastric pouch was retained given the compromised blood supply to the superior pole of the stomach from her prior fundoplication. Complete separation of the gastric pouch from the gastric remnant was confirmed to prevent future gastric gastric fistula. Once the hiatus and crura was dissected, 2-0 VLOC suture was placed in several [id number] suture to reapproximate the diaphragmatic hiatus posteriorly. To buttress the repair, a [place] Biopatch A was prepared along the back table and cut in a dejesus-hole fashion as to reinforce the repair as an underlay. The mesh was placed along the crural repair and tagged using horizontal mattress sutures using 2-0 Surgidac. Prior to creating the gastrojejunostomy, I then went to the head of the bed to perform an upper endoscopy and evaluation of the gastric pouch. I went to the head of the bed to perform intraoperative esophagogastroduodenoscopy. An Olympus gastroscope was passed through posterior oropharynx, where the GE junction was found distal to the diaphragmatic hiatus. The intra-abdominal esophageal length obtained during the case was over 2 cm. No evidence of leaks were found either of the mucosal defects of the esophagus or stomach. The hiatal closure was consistent with a 56 Moroccan bougie as a bougie was passed. This concluded the endoscopic portion of the case. Attention was now brought to the creation of the gastrojejunostomy. The patient was then prepared for placement of a Orvil. The patient was Mallampati 2. A 25-mm Orvil was selected for placement by the nurse ebay reseller. The Orvil tubing was placed anterior to the staple line of the gastric pouch and brought out through the left inferior lateral port. The Orvil was then carefully and successfully navigated with the help of the nurse ebay reseller into the gastric pouch. The sutures were identified and divided. The tubing was from the 25 mm anvil. Using aseptic technique all instruments including port sites were exchanged. As the Orvil had been placed, the blind jejunal limb was brought proximally into the upper abdomen. The transverse mesocolon was minimally bulky and undisturbed. No torsion was found upon the Mayur limb. No tension was identified as the limb was brought along the upper abdomen. The blind jejunal limb was opened using a cordless Harmonic scalpel. The 25-mm EEA stapler was brought through the left anterior lateral port site from the left side. Please note that the trocars from the Orvil tubing, including the port, were removed to minimize contamination from the oral eleazar. The EEA stapler was brought through the open jejunal limb and its needle was deployed at the antimesenteric border where the anvil were mated for approximately 1 minute upon firing. The stapler was removed after irrigating the shaft of the instrument with warm normal saline. Donuts were found to be intact and tihick on both sides. The open jejunal limb defect was closed using a Arcaris 60 mm jewell load after releasing any tension from the blind jejunal limb. Hemostasis was checked with Sonicision along the blind jejunal limb mesentery. Care was taken to avoid any long blind limb to avoid candycane syndrome. No reinforcement sutures were placed along the gastrojejunal anastomosis. The Encarnacion and jejunojejunostomy mesenteric defects were obliterated by her intra-abdominal fat. I then went to the head of the bed to perform the esophagogastrojejunoscopy and a leak test. An Olympus gastroscope was passed along the posterior oropharynx which was unremarkable for any injury to the vocal cords. The scope was passed down to the proximal portion of the pouch, whereby no active bleeding was encountered. Excellent visualization of the gastrojejunostomy anastomosis, including the Mayur limb was encountered with endoscopic image obtained. The anastomosis was found to be patent. The gastrointestinal tract was desufflated. No evidence of intraoperative leak was encountered as the gastric pouch and anastomosis were submerged under normal saline solution. I then went back to the bedside of the patient, whereby with coordinated effort of the malt specifications control assistant, irrigation was aspirated from the upper abdominal cavity. Tisseel was placed circumferentially over the anastomosis of the gastrojejunostomy. All instruments and pneumoperitoneum were evacuated from the abdominal cavity. The port correlating with the EEA stapler device was copiously irrigated with 1 L of warm normal saline solution and 20 mL of hydrogen peroxide. The fascial defect of the EEA stapler was closed using Wally Duarte and 0 Vicryl. The rest of incisions were reapproximated using 3-0 Vicryl for deep subcutaneous tissue and dermis followed by 4-0 Monocryl in a running subcuticular fashion. For local anesthetic, 0.50% Marcaine with epinephrine was infiltrated along the skin for postop analgesia. Dermabond was applied to the skin. OptiFoam dressing was placed along the EEA stapler site. At the end of the procedure, needle, sponge and instrument count had been verified correct by the surgical endoscopist. She had tolerated the procedure well and was extubated and taken to the postanesthesia unit in stable condition. Operative Findings: 1. Incarcerated Rylee fundoplasty along the mediastinum requiring extensive lysis of adhesions and takedown over 3-1/2 to 4 hours from recurrent paraesophageal diaphragmatic hiatal hernia 6 cm. 2. Repair of the hiatus performed consistent with 56-Moroccan bougie, 6 inch V- VLOC stitch used. 3. 8 staplers used for gastric pouch and partial gastrectomy 4. Negative leak test with generous sized donuts 5. Orvil consistent with 25 mm 6. Robotic stapler, 13 blue loads 45 mm used. 7. Floyd liver edge consistent with two-week high protein low caloric diet. 8. Bypass performed using 100 cm mayur limb secondary to avoid increased tension at 150 cm. 9. Shaffer defect and jejunojejunostomy defect obliterated by moderate intra- abdominal fat. 10. Robotic approach completed for jejunojejunostomy and gastric pouch creation.
--- NOTE | 2017-01-06 20:49 | P.DS ---
Providers Date of admission: 12/06/16 05:59 Expected date of discharge: 12/08/16 Attending physician: Nika Arriaga Primary care physician: Hadley Walton - Discharge Diagnosis(es) (1) Morbid obesity with BMI of 40.0-44.9, adult Status: Acute (2) Paraesophageal hernia with obstruction but no gangrene Status: Acute (3) Incarcerated paraesophageal hernia Status: Acute (4) S/P repair of paraesophageal hernia Status: Acute (5) Recurrent hernia Status: Acute (6) Hypertensive heart disease Status: Acute (7) Asthma Status: Acute (8) Peritoneal adhesions Status: Acute (9) S/P gastric bypass Status: Acute (10) Urinary retention with incomplete bladder emptying Status: Acute (11) Depression Status: Acute (12) Sleep apnea Status: Acute (13) COPD (chronic obstructive pulmonary disease) Status: Acute Hospital Course: POSTOPERATIVE DIAGNOSES: 1. Morbid obesity due to excess calories. 2. Body mass index of 41.0 2. Hypertensive heart disease. 3. Symptomatic paraesophageal diaphragmatic hiatal hernia. 4. Gastroesophageal reflux disease. 5. Chronic obstructive pulmonary disease with asthma. 6. Obstructive sleep apnea. 7. Hyperlipidemia. 8. Depression. 9. History of skin cancer. 10. Motion sickness. 11. Osteoarthritis of the bilateral hips. 12. Osteoarthritis of the bilateral knees. 13. Vitamin D deficiency. 14. Incarcerated recurrent midline paraesophageal diaphragmatic hiatal hernia 6 cm with obstruction. 15. Previous Rylee fundoplication. Pertinent Studies: Chest Xray showing no pneumonia UGI showing no obstruction or extravasation. No reflux identified with repaired recurrent hiatal hernia. Procedures: OPERATION: 1. Laparoscopic takedown of previous Rylee fundoplasty with partial gastrectomy superior pole of the stomach. 2. Laparoscopic lysis of adhesions over 3 hours involving hill-gastric adhesions. 3. Laparoscopic reduction and repair of recurrent incarcerated midline diaphragmatic paraesophageal hiatal hernia 6 cm with mesh using Ves[place] Biopatch A 8 x 8 cm 4. Laparoscopic Jacob-en-Y gastric bypass 100 cm antecolic, antegastric Jacob limb, 25 mm Orvil 5. Partial gastrectomy superior pole stomach. 6. Intraoperative esophagogastrojejunoscopy. Implants: Ves[place] Biopatch A 8 x 8 cm ANESTHESIA: Gen. with local anesthetic ESTIMATED BLOOD LOSS: 25 mL SPECIMENS REMOVED: Partial gastrectomy Operative Findings: 1. Incarcerated Rylee fundoplasty along the mediastinum requiring extensive lysis of adhesions and takedown over 3-1/2 to 4 hours from recurrent paraesophageal diaphragmatic hiatal hernia 6 cm. 2. Repair of the hiatus performed consistent with 56-Azeri bougie, 6 inch V- VLOC stitch used. 3. 8 staplers used for pouch and partial gastrectomy 4. Negative leak test with generous sized donuts 5. Orvil consistent with 25 mm Patient Condition at Discharge: Good Plan - Discharge Summary New Discharge Prescriptions: New Omeprazole 40 mg PO DAILY #90 capsule.dr Discontinued Pravastatin Sodium [Pravachol] 80 mg PO HS Omeprazole 40 mg PO DAILY PRN PRN Reason: Heartburn No Action amLODIPine [Norvasc] 10 mg PO HS Metoprolol Tartrate [Lopressor] 25 mg PO BID Citalopram Hydrobromide [CeleXA] 20 mg PO HS Albuterol Nebulized [Ventolin Nebulized] 2.5 mg INHALATION RT-BID PRN PRN Reason: Shortness Of Breath Montelukast [Singulair] 10 mg PO HS Albuterol Inhaler [Ventolin Hfa Inhaler] 1 - 2 puff INHALATION RT-Q6H PRN PRN Reason: Bronchospasm ALPRAZolam [Xanax] 0.25 mg PO Q6HR PRN PRN Reason: Anxiety Ipratropium Nebulized [Atrovent Nebulized] 0.5 mg INHALATION RT-DAILY PRN PRN Reason: Shortness Of Breath Discharge Medication List Albuterol Nebulized [Ventolin Nebulized] 2.5 mg INHALATION RT-BID PRN 03/23/16 [ History] Citalopram Hydrobromide [CeleXA] 20 mg PO HS 03/23/16 [History] Metoprolol Tartrate [Lopressor] 25 mg PO BID 03/23/16 [History] amLODIPine [Norvasc] 10 mg PO HS 03/23/16 [History] ALPRAZolam [Xanax] 0.25 mg PO Q6HR PRN 10/13/16 [History] Albuterol Inhaler [Ventolin Hfa Inhaler] 1 - 2 puff INHALATION RT-Q6H PRN [History] Montelukast [Singulair] 10 mg PO HS 10/13/16 [History] Ipratropium Nebulized [Atrovent Nebulized] 0.5 mg INHALATION RT-DAILY PRN [History] Omeprazole 40 mg PO DAILY #90 capsule. 12/08/16 [Rx] Follow up Appointment(s)/Referral(s): Nika Arriaga MD [STAFF PHYSICIAN] - 12/09/16 11:00 am ([facility]) Patient Instructions/Handouts: Alpesh-Awan Drain Care (GEN), Nutrition after Bariatric Surgery (GEN), Jacob-en-Y Gastric Bypass (DC) Activity/Diet/Wound Care/Special Instructions: [facility] Care: Bariatric clears today including tomorrow. Recommend blue food coloring to water. May sponge bath. No bath tub soaks. No lifting over 4 pounds in 4 weeks. Please keep record output of LOUIE drain. Discharge Disposition: HOME WITH HOME HEALTH SERVICES
== END 2016-12-08 20:31 | disposition home health service (06) | DRG 620 ==
LOC: 2ORWHC 05:59 → 3SUR 14:27
PROVIDERS: ADMIT Surgery Plastic and Reconstructive Surgery; ATTEND Surgery Plastic and Reconstructive Surgery
PROC: 0DN54ZZ Release Esophagus, Percutaneous Endoscopic Approach (ICD-10-PCS; principal; 2016-12-06 07:30)
PROC: 0BQS4ZZ (ICD-10-PCS; principal; 2016-12-06 07:30)
PROC: 0BQR4ZZ (ICD-10-PCS; principal; 2016-12-06 07:30)
PROC: 8E0W4CZ Robotic Assisted Procedure of Trunk Region, Percutaneous Endoscopic Approach (ICD-10-PCS; principal; 2016-12-06 07:30)
PROC: 0DB64Z3 Excision of Stomach, Percutaneous Endoscopic Approach, Vertical (ICD-10-PCS; principal; 2016-12-06 07:30)
PROC: 0D164ZA Bypass Stomach to Jejunum, Percutaneous Endoscopic Approach (ICD-10-PCS; principal; 2016-12-06 07:30)
DX: E66.01 Morbid (severe) obesity due to excess calories (principal); K44.0 Diaphragmatic hernia with obstruction, without gangrene; J44.9 Chronic obstructive pulmonary disease, unspecified; I11.9 Hypertensive heart disease without heart failure; E55.9 Vitamin D deficiency, unspecified; E78.5 Hyperlipidemia, unspecified; F32.9 Major depressive disorder, single episode, unspecified; G47.33 Obstructive sleep apnea (adult) (pediatric); K21.9 Gastro-esophageal reflux disease without esophagitis; K66.0 Peritoneal adhesions (postprocedural) (postinfection); M17.0 Bilateral primary osteoarthritis of knee; R33.9 Retention of urine, unspecified; T75.3XXA Motion sickness, initial encounter; Z68.41 Body mass index [BMI] 40.0-44.9, adult; Z79.899 Other long term (current) drug therapy; Z82.49 Family history of ischemic heart disease and other diseases of the circulatory system; Z85.828 Personal history of other malignant neoplasm of skin
CPT/HCPCS: 36415; 71020; 74240; 80048; 80051; 80053; 81003; 82310; 82550; 82553; 82565; 83735; 84100; 84484; 84520; 85025; 85610; 85730; 86850; 86900; 86901; 88307; 93005; 94640; 94760; 94762; 96360; 96361; 99285

== ENCOUNTER → 2017-01-05 | Outpatient (CLI) | payer MEDICARE, BC ==
[2017-01-05 16:18] VITALS: BMI 36.1
[2017-01-05 16:37] VITALS: BP 99/58; PULSE 68; RESP 16; TEMP 98.4
[2017-01-05 19:00] LABS: INR 1.2 (<1.2); Partial Thromboplastin Time 26.3 sec (22.0-30.0); Prothrombin Time 12.3 sec (9.0-12.0)
[2017-01-05 19:07] LABS: CH 29.2; CHCM 31.6; HCT 42.1 % (34.0-46.0); HDW 2.44; HGB 13.4 gm/dL (11.4-16.0); MCH 29.6 pg (25.0-35.0); MCHC 31.8 g/dL (31.0-37.0); MCV 93.1 fL (80.0-100.0); RBC 4.52 m/uL (3.80-5.40); RDW 14.4 % (11.5-15.5); WBC 7.2 k/uL (3.8-10.6)
[2017-01-05 19:14] LABS: ALT 30 U/L (9-52); AST 24 U/L (14-36); Alkaline Phosphatase 73 U/L (38-126); Anion Gap 18 mmol/L; Blood Urea Nitrogen 19 mg/dL (7-17); Carbon Dioxide 23 mmol/L (22-30); Chloride 97 mmol/L (98-107); Cholesterol 173 mg/dL (<200); Glucose 73 mg/dL (74-99); HDL Cholesterol 40 mg/dL (40-60); Iron 31 ug/dL (37-170); Magnesium 1.7 mg/dL (1.6-2.3); Non-African American GFR(MDRD) 54 (>60 ml/min/1.73 sqM); Potassium 3.8 mmol/L (3.5-5.1); Sodium 138 mmol/L (137-145); Total Bilirubin 0.8 mg/dL (0.2-1.3); Total Protein 6.5 g/dL (6.3-8.2)
[2017-01-05 19:23] LABS: Total Iron Binding Capacity 269 ug/dL (265-497)
[2017-01-05 20:00] LABS: Vitamin B12 770 pg/mL
[2017-01-05 20:41] LABS: Hemoglobin A1C 5.3 % (4.2-6.1)
[2017-01-12 18:31] LABS: Selenium 103 mcg/L (63-160)
--- NOTE | 2017-01-29 18:52 | P.PN ---
Progress Note - Text DATE OF SERVICE: 01/05/17 CHIEF COMPLAINT: Follow up gastric bypass. HISTORY OF PRESENT ILLNESS: The patient is a 76-year-old female who is status post robotic-assisted takedown of Rylee fundoplasty revision to gastric bypass on 12/06/2016. No reports of nausea or vomiting. No reports of fevers or chills. No reports of dysphasia. She comes in with low blood pressure today. She still taking a blood pressure medication. She reports her asthma is improved. She has increased energy. At her height of 5 foot 3, her ideal body weight is 140 pounds. Her heaviest weight was 237 pounds. She has lost 15 pounds in 2 weeks. Her initial body mass index was 42.1 now down to 36.2. Today she comes in weighing 219 pounds. She has lost 33 pounds in 1 month. PHYSICAL EXAM: VITAL SIGNS: height 5 foot 3 inches, weight 204 pounds. BMI 36.2 Vital Signs Temp 98.4 F 01/05/17 16:00 Pulse 68 01/05/17 16:00 Resp 16 01/05/17 16:00 BP 99/58 01/05/17 16:00 Pulse Ox GENERAL: Well-developed female in no acute distress. HEENT: No scleral icterus. Extraocular was grossly intact. No nasal drainage. NECK: Supple without lymphadenopathy. CHEST: Nonlabored respirations with equal bilateral excursions. CARDIOVASCULAR: Regular rate. Distal 2+ pulses. ABDOMEN: Obese, soft, nontender. Nondistended. MUSCULOSKELETAL: No clubbing, cyanosis, or edema. Gross strength 5/5 distal lower extremities. NEURO: No focal or lateralizing signs. Cranial nerves 2 through 12 grossly within normal limits. PSYCH: Appropriate affect. Alert and oriented to person, place and time. ASSESSMENT: 1. Morbid obesity due to excess calories. 2. Body mass index of 43.4 down to 36.2 2. Hypertensive heart disease. 3. Symptomatic paraesophageal diaphragmatic hiatal hernia, now resolved. 4. Gastroesophageal reflux disease, now resolved. 5. Status post Jacob-en-Y gastric bypass with taken down of Rylee fundoplasty. 6. Asthma, resolved. PLAN: 1. I have asked to discontinue her lisinopril. 2. She no longer is taking her asthma medications as she is completely resolved. 3. Advance to mechanical diet. 4. Bariatric metabolic labs at this time. 5. Follow up at [facility]. ADDENDUM: Iron is low. Prealbumin was low due to inadequate protein intake. Vitamin A is low. Recommend iron supplement including vitamin A supplement. Laboratory Last Values WBC 7.2 k/uL (3.8-10.6) 01/05/17 18:09 RBC 4.52 m/uL (3.80-5.40) 01/05/17 18:09 Hgb 13.4 gm/dL (11.4-16.0) 01/05/17 18:09 Hct 42.1 % (34.0-46.0) 01/05/17 18:09 MCV 93.1 fL (80.0-100.0) 01/05/17 18:09 MCH 29.6 pg (25.0-35.0) 01/05/17 18:09 MCHC 31.8 g/dL (31.0-37.0) 01/05/17 18:09 RDW 14.4 % (11.5-15.5) 01/05/17 18:09 Plt Count 265 k/uL (150-450) 01/05/17 18:09 PT 12.3 sec (9.0-12.0) H 01/05/17 18:09 INR 1.2 (<1.2) H 01/05/17 18:09 APTT 26.3 sec (22.0-30.0) 01/05/17 18:09 Sodium 138 mmol/L (137-145) 01/05/17 18:09 Potassium 3.8 mmol/L (3.5-5.1) 01/05/17 18:09 Chloride 97 mmol/L (98-107) L 01/05/17 18:09 Carbon Dioxide 23 mmol/L (22-30) 01/05/17 18:09 Anion Gap 18 mmol/L 01/05/17 18:09 BUN 19 mg/dL (7-17) H 01/05/17 18:09 Creatinine 1.00 mg/dL (0.52-1.04) 01/05/17 18:09 Est GFR (MDRD) Af Amer >60 (>60 ml/min/1.73 sqM) 01/05/17 18:09 Est GFR (MDRD) Non-Af 54 (>60 ml/min/1.73 sqM) 01/05/17 18:09 Glucose 73 mg/dL (74-99) L 01/05/17 18:[address] Glu mg/dL 105 mg/dL 01/05/17 18:09 Hemoglobin A1c 5.3 % (4.2-6.1) 01/05/17 18:09 Calcium 10.0 mg/dL (8.4-10.2) 01/05/17 18:09 Phosphorus 4.0 mg/dL (2.5-4.5) 01/05/17 18:09 Magnesium 1.7 mg/dL (1.6-2.3) 01/05/17 18:09 Iron 31 ug/dL (37-170) L 01/05/17 18:09 TIBC 269 ug/dL (265-497) 01/05/17 18:09 Ferritin 91.5 ng/mL (10.0-291.0) 01/05/17 18:09 Total Bilirubin 0.8 mg/dL (0.2-1.3) 01/05/17 18:09 AST 24 U/L (14-36) 01/05/17 18:09 ALT 30 U/L (9-52) 01/05/17 18:09 Alkaline Phosphatase 73 U/L (38-126) 01/05/17 18:09 Total Protein 6.5 g/dL (6.3-8.2) 01/05/17 18:09 Albumin 4.1 g/dL (3.5-5.0) 01/05/17 18:09 Prealbumin 10.0 mg/dL (18.0-42.0) L 01/05/17 18:09 Triglycerides 139 mg/dL (<150) 01/05/17 18:09 Cholesterol 173 mg/dL (<200) 01/05/17 18:09 LDL Cholesterol, Calc 105 mg/dL (0-99) H 01/05/17 18:09 HDL Cholesterol 40 mg/dL (40-60) 01/05/17 18:09 Vitamin A 23 ug/dL (38-106) L 01/05/17 18:09 Vitamin B1 62 ug/L (38-122) 01/05/17 18:09 Vitamin B12 770 pg/mL 01/05/17 18:09 Vitamin D 25-Hydroxy 44.8 ng/mL (30.0-100.0) 01/05/17 18:09 Folate 6.2 ng/mL 01/05/17 18:09 TSH 2.810 mIU/L (0.465-4.680) 01/05/17 18:09 PTH Intact 20.2 pg/mL (14.0-72.0) 01/05/17 18:09 Copper 1594 ug/L (810-1990) 01/05/17 18:09 Selenium 103 mcg/L (63-160) 01/05/17 18:09 Zinc 82 ug/dL (60-130) 01/05/17 18:09
== END ==
LOC: BARWHC3 15:40
PROVIDERS: ATTEND Surgery Plastic and Reconstructive Surgery
DX: Z48.815 Encounter for surgical aftercare following surgery on the digestive system (principal); E66.01 Morbid (severe) obesity due to excess calories; I11.9 Hypertensive heart disease without heart failure; Z87.19 Personal history of other diseases of the digestive system; Z98.84 Bariatric surgery status; Z68.36 Body mass index [BMI] 36.0-36.9, adult
CPT/HCPCS: 84255; 84134; 84425; 80061; 80053; 82607; 82728; 83036; 82525; 82746; 83540; 83550; 83735; 84100; 84443; 84590; 84630; 85027; 85610; 85730; 82306; 83970; 97803; G0463; 99211

== ENCOUNTER → 2017-04-06 | Outpatient (CLI) | payer MEDICARE, BC ==
[2017-04-06 13:10] VITALS: BP 150/85; PULSE 70; RESP 16; TEMP 98.2; BMI 32.5
[2017-04-06 14:26] LABS: HCT 44.3 % (34.0-46.0); HGB 13.3 gm/dL (11.4-16.0); Hypochromasia Slight; MCH 29.4 pg (25.0-35.0); MCV 98.1 fL (80.0-100.0); Macrocytosis Slight; Mean Platelet Volume 7.9; Platelet Count 269 k/uL (150-450); RBC 4.52 m/uL (3.80-5.40); RDW 15.7 % (11.5-15.5); WBC 6.1 k/uL (3.8-10.6)
[2017-04-06 14:40] LABS: INR 1.1 (<1.2); Partial Thromboplastin Time 24.1 sec (22.0-30.0); Prothrombin Time 10.6 sec (9.0-12.0)
[2017-04-06 14:45] LABS: ALT 31 U/L (9-52); AST 24 U/L (14-36); Albumin 3.7 g/dL (3.5-5.0); Alkaline Phosphatase 66 U/L (38-126); Anion Gap 9 mmol/L; Blood Urea Nitrogen 11 mg/dL (7-17); Calcium 9.7 mg/dL (8.4-10.2); Carbon Dioxide 30 mmol/L (22-30); Chloride 105 mmol/L (98-107); Cholesterol 205 mg/dL (<200); Glucose 96 mg/dL (74-99); HDL Cholesterol 51 mg/dL (40-60); LDL Cholesterol,Calculated 126 mg/dL (0-99); Potassium 4.3 mmol/L (3.5-5.1); Sodium 144 mmol/L (137-145); Total Bilirubin 0.6 mg/dL (0.2-1.3); Total Protein 6.2 g/dL (6.3-8.2); Triglycerides 141 mg/dL (<150)
[2017-04-06 19:00] LABS: Iron Saturation 18.09 (12.00-45.00)
[2017-04-06 19:10] LABS: Folate, Serum 5.6 ng/mL; Vitamin D 25 Hydroxy 37.5 ng/mL (30.0-100.0)
[2017-04-06 19:37] LABS: Parathyroid Hormone Intact 68.9 pg/mL (14.0-72.0)
[2017-04-06 19:48] LABS: Hemoglobin A1C 4.9 % (4.0-6.0)
[2017-04-07 15:31] LABS: Zinc, Serum 61 ug/dL (60-130)
[2017-04-08 05:17] LABS: Vitamin B1 46 ug/L (38-122)
[2017-04-08 06:22] LABS: Vitamin A 24 ug/dL (38-106)
[2017-04-08 17:00] LABS: Selenium 82 mcg/L (63-160)
--- NOTE | 2017-05-17 21:02 | P.PN ---
Subjective Progress Note Date: 04/06/17 DATE OF SERVICE: 04/06/17 CHIEF COMPLAINT: Follow up gastric bypass. HISTORY OF PRESENT ILLNESS: The patient is a 76-year-old female who is status post robotic-assisted takedown of Rylee fundoplasty revision to gastric bypass on 12/06/2016. She is 4 months postop. She reports vomiting. Separately she reports that use of her has . No reports of abdominal pain. Otherwise she feels great. No further reports of gastroesophageal reflux disease. She is off her medications for asthma. At her height of 5 foot 3, her ideal body weight is 140 pounds. Her highest weight was 237 pounds. She has lost 26 pounds in 3 months. Her initial body mass index was 42.1 now down to 31.5. Today she comes in weighing 178 pounds. Her lifetime weight loss is now 59 pounds this year. PAST MEDICAL HISTORY: 1. Morbid obesity. 2. Hypertensive heart disease. 3. Symptomatic paraesophageal diaphragmatic hiatal hernia. 4. Gastroesophageal reflux disease. 5. Chronic obstructive pulmonary disease with asthma. 6. Obstructive sleep apnea. 7. Hyperlipidemia. 8. Depression. 9. History of skin cancer. 10. Motion sickness. PAST SURGICAL HISTORY: 1. Open thoracic approach diaphragmatic hiatal hernia in 2012 at [facility]. 2. Appendectomy. 3. Bladder suspension. 4. Excision of skin cancer. 5. Hysterectomy. 6. Status post takedown of Rylee fundoplication with gastric bypass revision December 2016 HOME MEDICATIONS: 1. Omeprazole. 2. Singulair. 3. Celexa. 4. Xanax. 5. Albuterol inhaler. ALLERGIES: 1. Adenosine. 2. Iodine. 3. Latex. SOCIAL HISTORY: No active tobacco use. FAMILY HISTORY: Denies any DVTs, pulmonary embolisms in her family. Denies any ulcerative colitis disease or Crohn's. She does have a family history of morbid obesity. REVIEW OF ORGAN SYSTEMS: CONSTITUTIONAL: At her height of 5 foot 3.75, her ideal body weight is 140 pounds. Highest weight of 237 pounds. She is 38 pounds overweight. She has lost 26 pounds in 4 months. Her initial body mass index was 42.1 now down to 31.5. Today she comes in weighing 178 pounds. Her lifetime weight loss is now 59 pounds this year. HEENT: Denies any active troubles with vision or hearing. Dysphagia resolved. ENDOCRINE: No reports of diabetes or hypothyroidism. CARDIOVASCULAR: No reports of palpitations or heart attacks or chest pain. Off medications for hyperlipidemia including hypertension. RESPIRATORY: History of asthma including sleep apnea. Asthma moderately improved since surgery. GI: Denies any bright red blood per rectum, diarrhea or constipation. Has gastroesophageal reflux disease, now resolved. MUSCULOSKELETAL: Describes generalized muscle aches, including lower back pain or joint pain now improved with weight loss. NEURO: There were no reports of headaches or seizure disorders. PSYCH: Has depression without suicidal ideation. Has anxiety. HEMATOLOGIC: Denies any abnormal bleeding or bruising. PHYSICAL EXAM: VITAL SIGNS: height 5 foot 3 inches, weight 178 pounds. BMI 31.5 Vital Signs Temp 98.2 F 04/06/17 13:03 Pulse 70 04/06/17 13:03 Resp 16 04/06/17 13:03 BP 150/85 04/06/17 13:03 Pulse Ox GENERAL: Well-developed female in no acute distress. HEENT: No scleral icterus. Extraocular was grossly intact. No nasal drainage. NECK: Supple without lymphadenopathy. CHEST: Nonlabored respirations with equal bilateral excursions. CARDIOVASCULAR: Regular rate. Distal 2+ pulses. ABDOMEN: Obese, soft, nontender. Nondistended. No palpable incisional hernias. MUSCULOSKELETAL: No clubbing, cyanosis, or edema. Gross strength 5/5 distal lower extremities. NEURO: No focal or lateralizing signs. Cranial nerves 2 through 12 grossly within normal limits. PSYCH: Appropriate affect. Alert and oriented to person, place and time. LABS: Previous labs reviewed. Iron is low. Prealbumin was low due to inadequate protein intake. Vitamin A is low. ASSESSMENT: 1. Morbid obesity due to excess calories. 2. Body mass index of 43.4 down to 31.5 2. Hypertensive heart disease, improved enough medications. 3. Symptomatic paraesophageal diaphragmatic hiatal hernia, now resolved. 4. Gastroesophageal reflux disease, now resolved. 5. Status post Jacob-en-Y gastric bypass with taken down of Rylee fundoplasty. 6. Asthma, improved. 7. Obstructive sleep apnea resolved. 8. Iron deficiency anemia. 9. Vitamin A deficiency. 10. Inadequate protein intake. 11. Regurgitation. PLAN: 1. She has symptoms of vomiting and regurgitation. Recommend upper endoscopy with possible balloon dilatation. 2. Recommend bariatric metabolic labs. 3. Protein intake over 65 g advised. Laboratory Last Values WBC 6.1 k/uL (3.8-10.6) 04/06/17 14:06 RBC 4.52 m/uL (3.80-5.40) 04/06/17 14:06 Hgb 13.3 gm/dL (11.4-16.0) 04/06/17 14:06 Hct 44.3 % (34.0-46.0) 04/06/17 14:06 MCV 98.1 fL (80.0-100.0) 04/06/17 14:06 MCH 29.4 pg (25.0-35.0) 04/06/17 14:06 MCHC 30.0 g/dL (31.0-37.0) L 04/06/17 14:06 RDW 15.7 % (11.5-15.5) H 04/06/17 14:06 Plt Count 269 k/uL (150-450) 04/06/17 14:06 Hypochromasia Slight 04/06/17 14:06 Macrocytosis Slight 04/06/17 14:06 PT 10.6 sec (9.0-12.0) 04/06/17 14:06 INR 1.1 (<1.2) 04/06/17 14:06 APTT 24.1 sec (22.0-30.0) 04/06/17 14:06 Sodium 144 mmol/L (137-145) 04/06/17 14:06 Potassium 4.3 mmol/L (3.5-5.1) 04/06/17 14:06 Chloride 105 mmol/L (98-107) 04/06/17 14:06 Carbon Dioxide 30 mmol/L (22-30) 04/06/17 14:06 Anion Gap 9 mmol/L 04/06/17 14:06 BUN 11 mg/dL (7-17) 04/06/17 14:06 Creatinine 0.90 mg/dL (0.52-1.04) 04/06/17 14:06 Est GFR (MDRD) Af Amer >60 (>60 ml/min/1.73 sqM) 04/06/17 14:06 Est GFR (MDRD) Non-Af >60 (>60 ml/min/1.73 sqM) 04/06/17 14:06 Glucose 96 mg/dL (74-99) 04/06/17 14:[address] Glu mg/dL 94 04/06/17 14:06 Hemoglobin A1c 4.9 % (4.0-6.0) 04/06/17 14:06 Calcium 9.7 mg/dL (8.4-10.2) 04/06/17 14:06 Phosphorus 4.0 mg/dL (2.5-4.5) 04/06/17 14:06 Magnesium 2.0 mg/dL (1.6-2.3) 04/06/17 14:06 Iron 51 ug/dL (50-170) 04/06/17 14:06 TIBC 282 ug/dL (228-460) 04/06/17 14:06 Iron Saturation 18.09 (12.00-45.00) 04/06/17 14:06 Ferritin 49.6 ng/mL (10.0-291.0) 04/06/17 14:06 Total Bilirubin 0.6 mg/dL (0.2-1.3) 04/06/17 14:06 AST 24 U/L (14-36) 04/06/17 14:06 ALT 31 U/L (9-52) 04/06/17 14:06 Alkaline Phosphatase 66 U/L (38-126) 04/06/17 14:06 Total Protein 6.2 g/dL (6.3-8.2) L 04/06/17 14:06 Albumin 3.7 g/dL (3.5-5.0) 04/06/17 14:06 Prealbumin 13.0 mg/dL (18.0-42.0) L 04/06/17 14:06 Triglycerides 141 mg/dL (<150) 04/06/17 14:06 Cholesterol 205 mg/dL (<200) H 04/06/17 14:06 LDL Cholesterol, Calc 126 mg/dL (0-99) H 04/06/17 14:06 HDL Cholesterol 51 mg/dL (40-60) 04/06/17 14:06 Vitamin A 24 ug/dL (38-106) L 04/06/17 14:06 Vitamin B1 46 ug/L (38-122) 04/06/17 14:06 Vitamin B12 469.0 pg/mL (200.0-944.0) 04/06/17 14:06 Vitamin D 25-Hydroxy 37.5 ng/mL (30.0-100.0) 04/06/17 14:06 Folate 5.6 ng/mL 04/06/17 14:06 TSH 1.230 mIU/L (0.465-4.680) 04/06/17 14:06 PTH Intact 68.9 pg/mL (14.0-72.0) 04/06/17 14:06 Copper 1125 ug/L (810-1990) 04/06/17 14:06 Selenium 82 mcg/L (63-160) 04/06/17 14:06 Zinc 61 ug/dL (60-130) 04/06/17 14:06 Total protein and prealbumin is low. Cholesterol elevated at 205. Vitamin A is low. Recommend protein intake over 70 g daily. Repeat lipid panel on fasting. Vitamin A supplement 8000 units daily advised. Objective - Vital Signs Vital signs: Vital Signs Temp 98.2 F 04/06/17 13:03 Pulse 70 04/06/17 13:03 Resp 16 04/06/17 13:03 BP 150/85 04/06/17 13:03 Pulse Ox Intake & Output 04/05/17 04/06/17 04/06/17 18:59 06:59 18:59 Weight 80.694 kg - Labs CBC & Chem 7: 04/06/17 14:06 04/06/17 14:06
== END | disposition home or self-care (01) ==
LOC: BARWHC3 12:37
PROVIDERS: ATTEND Surgery Plastic and Reconstructive Surgery
DX: Z09 Encounter for follow-up examination after completed treatment for conditions other than malignant neoplasm (principal); E66.01 Morbid (severe) obesity due to excess calories; I11.9 Hypertensive heart disease without heart failure; D50.9 Iron deficiency anemia, unspecified; E50.9 Vitamin A deficiency, unspecified; R11.10 Vomiting, unspecified; E21.1 Secondary hyperparathyroidism, not elsewhere classified; E89.1 Postprocedural hypoinsulinemia; K90.9 Intestinal malabsorption, unspecified; E55.9 Vitamin D deficiency, unspecified; K76.9 Liver disease, unspecified; N19 Unspecified kidney failure; K50.90 Crohn's disease, unspecified, without complications; K21.9 Gastro-esophageal reflux disease without esophagitis; J44.9 Chronic obstructive pulmonary disease, unspecified; F32.9 Major depressive disorder, single episode, unspecified; Z68.31 Body mass index [BMI] 31.0-31.9, adult; Z91.048 Other nonmedicinal substance allergy status; Z91.040 Latex allergy status; Z79.899 Other long term (current) drug therapy; Z98.84 Bariatric surgery status
CPT/HCPCS: 84255; 84134; 84425; 80061; 80053; 82607; 82728; 82525; 82746; 83540; 83550; 83735; 84100; 84443; 84590; 84630; 85027; 85610; 85730; 82306; 83970; 83036; 97803; G0463; 99211

== ENCOUNTER → 2017-06-08 | Outpatient (CLI) | payer MEDICARE, BC ==
[2017-06-08 14:51] VITALS: BP 124/66; PULSE 91; RESP 15; TEMP 97.9
[2017-06-08 15:58] LABS: HGB 12.2 gm/dL (11.4-16.0); Hypochromasia Slight; MCH 30.6 pg (25.0-35.0); MCHC 31.3 g/dL (31.0-37.0); MCV 97.7 fL (80.0-100.0); Mean Platelet Volume 7.5; Platelet Count 311 k/uL (150-450); RDW 13.5 % (11.5-15.5); WBC 6.7 k/uL (3.8-10.6)
[2017-06-08 16:06] LABS: INR 1.1 (<1.2); Partial Thromboplastin Time 24.7 sec (22.0-30.0); Prothrombin Time 10.6 sec (9.0-12.0)
[2017-06-08 16:13] LABS: ALT 17 U/L (9-52); AST 22 U/L (14-36); Albumin 3.7 g/dL (3.5-5.0); Alkaline Phosphatase 80 U/L (38-126); Anion Gap 12 mmol/L; Blood Urea Nitrogen 12 mg/dL (7-17); Calcium 9.6 mg/dL (8.4-10.2); Carbon Dioxide 28 mmol/L (22-30); Chloride 102 mmol/L (98-107); Cholesterol 191 mg/dL (<200); Glucose 96 mg/dL (74-99); HDL Cholesterol 51 mg/dL (40-60); LDL Cholesterol,Calculated 112 mg/dL (0-99); Phosphorus 4.2 mg/dL (2.5-4.5); Potassium 4.1 mmol/L (3.5-5.1); Sodium 142 mmol/L (137-145); Total Bilirubin 0.6 mg/dL (0.2-1.3); Total Protein 6.5 g/dL (6.3-8.2); Triglycerides 140 mg/dL (<150)
[2017-06-08 17:12] VITALS: BMI 27.6
[2017-06-09 00:52] LABS: Hemoglobin A1C 4.8 % (4.0-6.0)
[2017-06-09 00:53] LABS: Iron Saturation 14.65 (12.00-45.00)
[2017-06-09 01:02] LABS: Vitamin D 25 Hydroxy 31.9 ng/mL (30.0-100.0)
[2017-06-09 01:03] LABS: Folate, Serum 9.4 ng/mL
[2017-06-09 01:57] LABS: Parathyroid Hormone Intact 65.3 pg/mL (14.0-72.0)
[2017-06-10 00:57] LABS: Zinc, Serum 60 ug/dL (60-130)
[2017-06-10 08:30] LABS: Vitamin A 23 ug/dL (38-106)
[2017-06-11 03:02] LABS: Vitamin B1 65 ug/L (38-122)
[2017-06-11 11:09] LABS: Selenium 102 mcg/L (63-160)
== END | disposition home or self-care (01) ==
LOC: BARWHC3 14:21
PROVIDERS: ATTEND Surgery Plastic and Reconstructive Surgery
DX: E66.01 Morbid (severe) obesity due to excess calories (principal); Z68.27 Body mass index [BMI] 27.0-27.9, adult; E21.1 Secondary hyperparathyroidism, not elsewhere classified; E89.1 Postprocedural hypoinsulinemia; D50.9 Iron deficiency anemia, unspecified; K90.9 Intestinal malabsorption, unspecified; E55.9 Vitamin D deficiency, unspecified; K74.1 Hepatic sclerosis; N19 Unspecified kidney failure; K50.90 Crohn's disease, unspecified, without complications; Z71.3 Dietary counseling and surveillance
CPT/HCPCS: 84255; 84134; 84425; 80061; 80053; 82607; 82728; 82525; 82746; 83540; 83550; 83735; 84100; 84443; 84590; 84630; 85027; 85610; 85730; 82306; 83970; 83036; 97803; G0463; 99211

== ENCOUNTER → 2018-01-11 | Outpatient (CLI) | payer MEDICARE, BC ==
--- NOTE | 2018-01-11 16:09 | P.PN ---
Subjective Progress Note Date: 01/11/18 DATE OF SERVICE: 01/11/18 CHIEF COMPLAINT: Follow up gastric bypass. HISTORY OF PRESENT ILLNESS: The patient is a 77-year-old female who is status post robotic-assisted takedown of Rylee fundoplasty revision to gastric bypass on 12/06/2016. She is 1 year out. She denies gastroesophageal reflux disease. Her asthma is gone. She has lost over 100 pounds. She has more energy. She is off anti-hypertensive medications. At her height of 5 foot 3, her ideal body weight is 140 pounds. Her highest weight was 237 pounds. She has lost 25 pounds in 7 months. Her initial body mass index was 41.1 now down to 23.3. Today she comes in weighing 134 pounds. Her lifetime weight loss is now 103 pounds. PAST MEDICAL HISTORY: 1. Morbid obesity, initial 41.1 2. Hypertensive heart disease. 3. Symptomatic paraesophageal diaphragmatic hiatal hernia. 4. Gastroesophageal reflux disease. 5. Chronic obstructive pulmonary disease with asthma. 6. Obstructive sleep apnea. 7. Hyperlipidemia. 8. Depression. 9. History of skin cancer. 10. Motion sickness. 11. Kidney stones with history of sepsis PAST SURGICAL HISTORY: 1. Open thoracic approach diaphragmatic hiatal hernia in 2012 at [facility]. 2. Appendectomy. 3. Bladder suspension. 4. Excision of skin cancer. 5. Hysterectomy. 6. Status post takedown of Rylee fundoplication with gastric bypass revision December 2016 HOME MEDICATIONS: 1. Celexa. 2. Xanax. 3. Multivitamin ALLERGIES: 1. Adenosine. 2. Iodine. 3. Latex. SOCIAL HISTORY: No active tobacco use. FAMILY HISTORY: Denies any DVTs, pulmonary embolisms in her family. Denies any ulcerative colitis disease or Crohn's. She does have a family history of morbid obesity. REVIEW OF ORGAN SYSTEMS: CONSTITUTIONAL: At her height of 5 foot 3, her ideal body weight is 140 pounds. Her highest weight was 237 pounds. She has lost 18 pounds in 2 months. Her initial body mass index was 42.1 now down to 28.3. Today she comes in weighing 160 pounds. Her lifetime weight loss is now 77 pounds. HEENT: Denies any active troubles with vision or hearing. Dysphagia resolved. ENDOCRINE: No reports of diabetes or hypothyroidism. CARDIOVASCULAR: No reports of palpitations or heart attacks or chest pain. Off medications for hyperlipidemia including hypertension. RESPIRATORY: History of asthma including sleep apnea. Resolved COPD including obstructive sleep apnea. GI: Denies any bright red blood per rectum, diarrhea or constipation. Has gastroesophageal reflux disease, now resolved. MUSCULOSKELETAL: Describes generalized muscle aches, including lower back pain or joint pain now improved with weight loss. NEURO: There were no reports of headaches or seizure disorders. PSYCH: Has depression without suicidal ideation. Has anxiety. HEMATOLOGIC: Denies any abnormal bleeding or bruising. SKIN: No skin cancer or rash. PHYSICAL EXAM: VITAL SIGNS: height 5 foot 3 inches, weight 134 pounds. BMI 23.3 Vital Signs Temp 98.8 F 01/11/18 15:37 Pulse 65 01/11/18 15:37 Resp 15 01/11/18 15:37 BP 147/97 01/11/18 15:37 Pulse Ox GENERAL: Well-developed female in no acute distress. HEENT: No scleral icterus. Extraocular was grossly intact. No nasal drainage. NECK: Supple without lymphadenopathy. CHEST: Nonlabored respirations with equal bilateral excursions. CARDIOVASCULAR: Regular rate. Distal 2+ pulses. ABDOMEN: Obese, soft, nontender. Nondistended. No palpable incisional hernias. MUSCULOSKELETAL: No clubbing, cyanosis, or edema. Gross strength 5/5 distal lower extremities. NEURO: No focal or lateralizing signs. Cranial nerves 2 through 12 grossly within normal limits. PSYCH: Appropriate affect. Alert and oriented to person, place and time. SKIN: Well perfused. Good skin turgor. ASSESSMENT: 1. Morbid obesity due to excess calories. 2. Body mass index of 43.4 down to 23.3 3. Hypertensive heart disease, resolved. 4. Gastroesophageal reflux disease, now resolved. 5. Status post Jacob-en-Y gastric bypass with taken down of Rylee fundoplasty. 6. Asthma, resolved. 7. Obstructive sleep apnea resolved. 8. Iron deficiency anemia. 9. Vitamin A deficiency. 10. Inadequate protein intake. 11. Hypercholesterolemia 12. History of kidney stones PLAN: 1. She is 1 year out 2. Recommend bariatric labs Laboratory Last Values WBC 5.7 k/uL (3.8-10.6) 01/11/18 16:38 RBC 4.14 m/uL (3.80-5.40) 01/11/18 16:38 Hgb 12.6 gm/dL (11.4-16.0) 01/11/18 16:38 Hct 39.9 % (34.0-46.0) 01/11/18 16:38 MCV 96.5 fL (80.0-100.0) 01/11/18 16:38 MCH 30.4 pg (25.0-35.0) 01/11/18 16:38 MCHC 31.5 g/dL (31.0-37.0) 01/11/18 16:38 RDW 13.0 % (11.5-15.5) 01/11/18 16:38 Plt Count 234 k/uL (150-450) 01/11/18 16:38 PT 10.5 sec (9.0-12.0) 01/11/18 16:38 INR 1.1 (<1.2) 01/11/18 16:38 APTT 23.0 sec (22.0-30.0) 01/11/18 16:38 Sodium 139 mmol/L (137-145) 01/11/18 16:38 Potassium 5.1 mmol/L (3.5-5.1) 01/11/18 16:38 Chloride 102 mmol/L (98-107) 01/11/18 16:38 Carbon Dioxide 29 mmol/L (22-30) 01/11/18 16:38 Anion Gap 8 mmol/L 01/11/18 16:38 BUN 14 mg/dL (7-17) 01/11/18 16:38 Creatinine 0.89 mg/dL (0.52-1.04) 01/11/18 16:38 Est GFR (CKD-EPI)AfAm 73 (>60 ml/min/1.73 sqM) 01/11/18 16:38 Est GFR (CKD-EPI)NonAf 64 (>60 ml/min/1.73 sqM) 01/11/18 16:38 Glucose 83 mg/dL (74-99) 01/11/18 16:[address] Glu mg/dL 100 01/11/18 16:38 Hemoglobin A1c 5.1 % (4.0-6.0) 01/11/18 16:38 Calcium 10.1 mg/dL (8.4-10.2) 01/11/18 16:38 Phosphorus 4.3 mg/dL (2.5-4.5) 01/11/18 16:38 Magnesium 2.1 mg/dL (1.6-2.3) 01/11/18 16:38 Iron 54 ug/dL (50-170) 01/11/18 16:38 TIBC 305 ug/dL (228-460) 01/11/18 16:38 Iron Saturation 17.70 (12.00-45.00) 01/11/18 16:38 Ferritin 44.1 ng/mL (10.0-291.0) 01/11/18 16:38 Total Bilirubin 0.7 mg/dL (0.2-1.3) 01/11/18 16:38 AST 32 U/L (14-36) 01/11/18 16:38 ALT 38 U/L (9-52) 01/11/18 16:38 Alkaline Phosphatase 97 U/L (38-126) 01/11/18 16:38 Total Protein 7.0 g/dL (6.3-8.2) 01/11/18 16:38 Albumin 4.4 g/dL (3.5-5.0) 01/11/18 16:38 Prealbumin 20.0 mg/dL (18.0-42.0) 01/11/18 16:38 Triglycerides 104 mg/dL (<150) 01/11/18 16:38 Cholesterol 177 mg/dL (<200) 01/11/18 16:38 LDL Cholesterol, Calc 100 mg/dL (0-99) H 01/11/18 16:38 HDL Cholesterol 56 mg/dL (40-60) 01/11/18 16:38 Vitamin A 48 ug/dL (38-106) 01/11/18 16:38 Vitamin B1 59 ug/L (38-122) 01/11/18 16:38 Vitamin B12 311.0 pg/mL (200.0-944.0) 01/11/18 16:38 Vitamin D 25-Hydroxy 29.3 ng/mL (30.0-100.0) L 01/11/18 16:38 Folate 11.3 ng/mL 01/11/18 16:38 TSH 1.490 mIU/L (0.465-4.680) 01/11/18 16:38 PTH Intact 78.9 pg/mL (14.0-72.0) H 01/11/18 16:38 Copper 1393 ug/L (810-1990) 01/11/18 16:38 Selenium 100 mcg/L (63-160) 01/11/18 16:38 Zinc 90 ug/dL (60-130) 01/11/18 16:38 Objective - Labs CBC & Chem 7: 01/11/18 16:38 01/11/18 16:38
[2018-01-11 16:15] VITALS: BP 147/97; PULSE 65; RESP 15; TEMP 98.8; BMI 23.3
[2018-01-11 17:38] LABS: HCT 39.9 % (34.0-46.0); HGB 12.6 gm/dL (11.4-16.0); MCH 30.4 pg (25.0-35.0); MCHC 31.5 g/dL (31.0-37.0); MCV 96.5 fL (80.0-100.0); Mean Platelet Volume 7.4; Platelet Count 234 k/uL (150-450); RBC 4.14 m/uL (3.80-5.40); WBC 5.7 k/uL (3.8-10.6)
[2018-01-11 17:49] LABS: INR 1.1 (<1.2); Prothrombin Time 10.5 sec (9.0-12.0)
[2018-01-11 18:18] LABS: Albumin 4.4 g/dL (3.5-5.0); Calcium 10.1 mg/dL (8.4-10.2); Magnesium 2.1 mg/dL (1.6-2.3); Phosphorus 4.3 mg/dL (2.5-4.5); Potassium 5.1 mmol/L (3.5-5.1); Total Bilirubin 0.7 mg/dL (0.2-1.3)
[2018-01-12 01:53] LABS: Iron Saturation 17.7 (12.00-45.00)
[2018-01-12 02:05] LABS: Vitamin D 25 Hydroxy 29.3 ng/mL (30.0-100.0)
[2018-01-12 02:25] LABS: Folate, Serum 11.3 ng/mL
[2018-01-12 02:40] LABS: Parathyroid Hormone Intact 78.9 pg/mL (14.0-72.0)
[2018-01-12 05:29] LABS: Hemoglobin A1C 5.1 % (4.0-6.0)
[2018-01-13 15:08] LABS: Zinc, Serum 90 ug/dL (60-130)
[2018-01-16 06:13] LABS: Vitamin B1 59 ug/L (38-122)
[2018-01-17 08:23] LABS: Vitamin A 48 ug/dL (38-106)
[2018-01-17 15:22] LABS: Selenium 100 mcg/L (63-160)
== END | disposition home or self-care (01) ==
LOC: BARWHC3 14:24
PROVIDERS: ATTEND Surgery Plastic and Reconstructive Surgery
DX: Z48.815 Encounter for surgical aftercare following surgery on the digestive system (principal); D50.9 Iron deficiency anemia, unspecified; E50.9 Vitamin A deficiency, unspecified; E78.00 Pure hypercholesterolemia, unspecified; E21.1 Secondary hyperparathyroidism, not elsewhere classified; E89.1 Postprocedural hypoinsulinemia; K90.9 Intestinal malabsorption, unspecified; E55.9 Vitamin D deficiency, unspecified; K76.9 Liver disease, unspecified; N19 Unspecified kidney failure; K50.90 Crohn's disease, unspecified, without complications; Z68.23 Body mass index [BMI] 23.0-23.9, adult; Z87.442 Personal history of urinary calculi; Z98.84 Bariatric surgery status; Z88.8 Allergy status to other drugs, medicaments and biological substances; Z91.048 Other nonmedicinal substance allergy status; Z91.040 Latex allergy status; Z79.899 Other long term (current) drug therapy; Z90.89 Acquired absence of other organs; Z90.710 Acquired absence of both cervix and uterus
CPT/HCPCS: 84255; 84134; 84425; 80061; 80053; 82607; 82728; 82525; 82746; 83540; 83550; 83735; 84100; 84443; 84590; 84630; 85027; 85610; 85730; 82306; 83970; 83036; 36415; G0463; 99211

== ENCOUNTER → 2019-01-03 | Outpatient (CLI) | payer MEDICARE, BC ==
[2019-01-03 14:35] VITALS: BP 148/83; PULSE 72; TEMP 98.6; BMI 23.6
--- NOTE | 2019-01-03 15:17 | P.PN ---
Subjective Progress Note Date: 01/03/19 HPI: She is off all blood pressure. Her asthma is gone. No GERD. She reports the lose of her . She has seen her cable repairer. ABDOMEN: No hernia. ASSESSMENT: 1. Morbid obesity PLAN: 1. She is happy with her weight loss 2. Follow up labs Objective - Vital Signs Vital signs: Vital Signs Temp 98.6 F 01/03/19 14:28 Pulse 72 01/03/19 14:28 Resp BP 148/83 01/03/19 14:28 Pulse Ox Intake & Output 01/02/19 01/03/19 01/03/19 18:59 06:59 18:59 Weight 62.596 kg
[2019-01-03 17:03] LABS: HCT 39.1 % (34.0-46.0); HGB 12.6 gm/dL (11.4-16.0); MCH 30.7 pg (25.0-35.0); MCHC 32.2 g/dL (31.0-37.0); MCV 95.5 fL (80.0-100.0); Mean Platelet Volume 7.7; Platelet Count 250 k/uL (150-450); RBC 4.09 m/uL (3.80-5.40); RDW 13.7 % (11.5-15.5); WBC 7.1 k/uL (3.8-10.6)
[2019-01-03 17:19] LABS: INR 0.9 (<1.2); Partial Thromboplastin Time 25.3 sec (22.0-30.0); Prothrombin Time 10.1 sec (9.0-12.0)
[2019-01-03 23:20] LABS: African American GFR (CKD) 56.5 (60.0-200.0); Albumin 4.4 g/dL (3.80-4.90); Albumin/Globulin Ratio 2.59 (1.60-3.17); Anion Gap 9.3 mmol/L (4.00-12.00); BUN/Creat Ratio 10.91 Ratio (12.00-20.00); Calcium 9.6 mg/dL (8.7-10.3); Carbon Dioxide 29.7 mmol/L (21.6-31.8); Globulin 1.7 g/dL (1.6-3.3); Potassium 4.1 mmol/L (3.5-5.5); Total Bilirubin 0.5 mg/dL (0.3-1.2); Total Protein 6.1 g/dL (6.2-8.2)
[2019-01-03 23:24] LABS: Iron Saturation 11.3 (12.00-45.00)
[2019-01-03 23:46] LABS: Folate, Serum 9.8 ng/mL
[2019-01-04 14:00] LABS: Zinc, Serum 58 ug/dL (60-130)
[2019-01-06 17:47] LABS: Selenium 96 mcg/L (63-160)
== END | disposition home or self-care (01) ==
LOC: BARWHC3 14:13
PROVIDERS: ATTEND Surgery Plastic and Reconstructive Surgery
DX: E66.01 Morbid (severe) obesity due to excess calories (principal); E60 Dietary zinc deficiency; E21.1 Secondary hyperparathyroidism, not elsewhere classified; E89.1 Postprocedural hypoinsulinemia; D50.9 Iron deficiency anemia, unspecified; E44.0 Moderate protein-calorie malnutrition; E55.9 Vitamin D deficiency, unspecified; K74.1 Hepatic sclerosis; N19 Unspecified kidney failure; K50.90 Crohn's disease, unspecified, without complications; Z68.23 Body mass index [BMI] 23.0-23.9, adult
CPT/HCPCS: 84255; 84134; 80053; 82728; 82525; 82746; 83540; 83550; 84443; 84630; 85027; 85610; 85730; 82306; 83970; 83036; G0463; 99211

== ENCOUNTER → 2019-10-09 | Outpatient (CLI) | payer MEDICARE, BC ==
--- NOTE | 2019-10-09 11:35 | MM ---
Reason for exam: follow-up at short interval from prior study. Last mammogram was performed 4 years and 3 months ago. History: Patient is postmenopausal and history of other cancer. Took hormonal contraceptives for 15 years. Took estrogen for 25 years. Physical Findings: Nurse did not find any significant physical abnormalities on exam. MG 3D Diag Mammo W/Cad LT CC and MLO view(s) were taken of the left breast. Prior study comparison: March 22, 2019, mammogram. July 10, 2015, bilateral MG screening mammo w CAD. The breast tissue is heterogeneously dense. This may lower the sensitivity of mammography. Benign appearing calcifications in the left breast. No suspicious abnormality. These results were verbally communicated with the patient and result sheet given to the patient on 10/09/19. ASSESSMENT: Benign, BI-RAD 2 RECOMMENDATION: Routine screening mammogram of both breasts in 6 months. Back on schedule for April 2020.
--- NOTE | 2019-10-09 11:37 | USB ---
Reason for exam: follow-up at short interval from prior study. History: Patient is postmenopausal and history of other cancer. Took hormonal contraceptives for 15 years. Took estrogen for 25 years. US Breast LT Left complete breast ultrasound includes all four quadrants, the retroareolar region and axilla. Finding demonstrates a 0.5 x 0.3 x 0.4cm hypoechoic lesion at 3 o'clock prior 0.7 x 0.2 x 0.4cm. These results were verbally communicated with the patient and result sheet given to the patient on 10/09/19. ASSESSMENT: Benign, BI-RAD 2 RECOMMENDATION: Routine screening mammogram of both breasts in 6 months. Back on schedule for April 2020.
== END | disposition home or self-care (01) ==
LOC: RADMAMWWP 09:56
PROVIDERS: ATTEND Surgery
DX: R92.8 Other abnormal and inconclusive findings on diagnostic imaging of breast (principal)
CPT/HCPCS: 77065; 76641; G0279; 77061

== ENCOUNTER → 2019-10-11 | Outpatient (CLI) | payer MEDICARE, BC ==
[2019-10-11 13:02] VITALS: BP 146/91; PULSE 66; RESP 18; TEMP 98.3
--- NOTE | 2019-10-11 13:15 | P.PN ---
Subjective Progress Note Date: 10/11/19 Principal diagnosis: patient for review of radiographs. Dat is a 78-year-old white femal. She had a routine screening mammogram performed on [id number]. Ultrasound of the left breast [place]. [place] [id number]. This revealed a 0.7 x 0.2 x 0.4 cm hypoechoic area felt to be most likely a cystic structure. This was felt to be probably benign and six-month follow-up left breast mammogram and ultrasound was recommended. The patient did not feel anything of concern in her breasts. She was not complaining of any masses, nipple discharge or skin changes. She had not had any recent trauma or infection in the breast. Repeat left breast mammogram and ultrasound were done on 10-09-19. These were benign BIRAD 2 and repeat bilateral mammogram in 6 months recommend. She is not concerned about any changes in her breast at this time. Caffeine: 3 cups of coffee per day Smoke: Negative Chocolate: none Family History: brother: kidney brother: prostate Hormonal History: menarche: 15 breast fed: no, first born at 20 menopause: hysterectomy at 38 for endometriosis BCP: 20 years hormones: 20 years Surgical history: 1. Hiatal hernia repair 2. Gastric bypass 3. Hysterectomy/left ovaries/ appendectomy 4. tubes placed in ears for balance Medical history: none Social History: smoke: none alcohol: wine occasional drugs: none - Constitutional Constitutional: Denies chills, Denies fever - EENT Eyes: denies blurred vision, denies pain Ears: deny: decreased hearing (tubes recently placed for balance), tinnitus Ears, nose, mouth and throat: Denies headache, Denies sore throat - Breasts Breasts: bilateral: as per HPI - Cardiovascular Cardiovascular: Denies chest pain, Denies shortness of breath - Respiratory Respiratory: Denies cough - Gastrointestinal Gastrointestinal: Denies abdominal pain, Denies diarrhea, Denies nausea, Denies vomiting - Genitourinary (Female) Genitourinary: Reports kidney stones, Denies dysuria, Denies hematuria - Menstruation Menstruation: Reports post hysterectomy - Musculoskeletal Musculoskeletal: Denies myalgias - Integumentary Integumentary: Denies pruritus, Denies rash - Neurological Neurological: Denies numbness, Denies weakness - Psychiatric Psychiatric: Reports anxiety, Reports depression - Endocrine Comment: bariatic surgery lost 100 pounds Endocrine: Reports weight change, Denies fatigue - Hematologic/Lymphatic Comment: none Objective - Vital Signs Vital signs: Vital Signs Temp 98.3 F 10/11/19 12:59 Pulse 66 10/11/19 12:59 Resp 18 10/11/19 12:59 BP 146/91 10/11/19 12:59 Pulse Ox 97 10/11/19 12:59 Intake & Output 10/10/19 10/11/19 10/11/19 18:59 06:59 18:59 Weight 63.503 kg - Exam patient declined physical exam Assessment and Plan Assessment: patient declined physical exam Impression: stable left breast mammogram and ultrasound from 6920; BIRADS 2 Plan: 1. Bilateral mammogram in 6 months with physician exam at that time CC: Dr. Walton encounter 10 minutes, > 50% of time in planning and counselling
== END | disposition home or self-care (01) ==
LOC: WWCWWP 12:53
PROVIDERS: ATTEND Surgery
DX: Z53.9 Procedure and treatment not carried out, unspecified reason (principal)

== ENCOUNTER → 2021-06-04 | Outpatient (CLI) | payer MEDICARE, BC ==
[2021-06-04 15:08] VITALS: BP 171/95; PULSE 74; RESP 20; TEMP 97.8
--- NOTE | 2021-06-04 16:03 | P.GSHP ---
History of Present Illness H&P Date: 06/04/21 Chief Complaint: invasive lobular carcinoma left breast Hue is a 80 year old white female see ileana consultation for DR. Hadley Walton regarding a biopsy proven invasive lobular carcinoma of the left breast. She had a Bilateral screening mammogram on 04-17-21 which showed a lesion in the left breast. This was followed by a left breast mammogram (04-28-21) and ultrasound (04-28-21). She had an ultrasound core biopsy on 05-14-21. This revealed invasive lobular carcinoma this was grade 2, ER/ME positive, and HER-2 pending. The lesion size is approximately 6 mm. There is no evidence of any cheryle or metastatic involvement. This is a clinical stage IA disease. She does not feel anything in her breast. She has never had any surgery in her breasts before she has not had any history of trauma or infection in the breast. Caffiene: 3 cups coffee/day nicotine: none; never smoker chocolate: not eat it hormones: used them for 20 years after hysterectomy stopped 28 years ago BCP:20 years Family History: 2 brothers: prostate cancer; one also had kidney cancer patient: skin cancer Hormonal History: menarche: 15 , breast fed: no, age at first : 20 hysterectomy at 40 for prolapse; did not take her ovaries hormones: 20 years BCP: 20 years Surgical History: gastric bypass (lost 100 pounds) hiatal hernia repair Bladder suspension skin cancer Medical History: HTN (no longer takes medication since last week) anxiety Social History: nicotine: none alcohol:none drugs: none - Constitutional Constitutional: Denies chills, Denies fever - EENT Eyes: denies blurred vision, denies pain Ears: bilateral: tinnitus, deny: decreased hearing Ears, nose, mouth and throat: Denies headache, Denies sore throat - Breasts Breasts: bilateral: as per HPI - Cardiovascular Cardiovascular: Denies chest pain, Denies shortness of breath - Respiratory Respiratory: Denies cough, Denies 7 - Gastrointestinal Gastrointestinal: Denies abdominal pain, Denies diarrhea, Denies nausea, Denies vomiting - Genitourinary (Female) Genitourinary: Reports kidney stones, Denies dysuria, Denies hematuria - Menstruation Menstruation: Reports as per HPI - Musculoskeletal Comment: arthritis - Integumentary Integumentary: Denies pruritus, Denies rash - Neurological Neurological: Denies numbness, Denies weakness - Psychiatric Psychiatric: Reports anxiety, Reports depression - Endocrine Comment: lost 100 pounds Endocrine: Reports weight change, Denies fatigue - Hematologic/Lymphatic Comment: none - Allergic/Immunologic Allergic/Immunologic: Reports as per HPI, Reports seasonal allergies Past Medical History Past Medical History: Asthma, Cancer, GERD/Reflux, Hyperlipidemia, Hypertension Additional Past Medical History / Comment(s): hx. hiatal hernia, hx skin cancer, vomiting since December edgard. meat but increasing recently w/most things, April 2017 pt dx with sepsis secondary to renal calculi (information provided by patient and daughter on 06/09/17) History of Any Multi-Drug Resistant Organisms: None Reported Past Surgical History: Appendectomy, Bladder Surgery, Hernia Repair, Hysterectomy Additional Past Surgical History / Comment(s): hiatal hernia repair, mayur-en-y, take down of luís, partial gastrectomy Past Anesthesia/Blood Transfusion Reactions: Motion Sickness Additional Past Anesthesia/Blood Transfusion Reaction / Comment(s): no blood tranfusions Past Psychological History: Anxiety, Depression Smoking Status: Never smoker Past Alcohol Use History: Rare Additional Past Alcohol Use History / Comment(s): only drinks one drink at occasional weddings Past Drug Use History: None Reported - Past Family History Mother Family Medical History: No Reported History Additional Family Medical History / Comment(s): at age 93 from natural causes Father Family Medical History: Coronary Artery Disease (CAD) Additional Family Medical History / Comment(s): at age 63 from suspected heart attack Brother(s) Family Medical History: Cancer Medications and Allergies Home Medications Medication Instructions Recorded Confirmed Type Citalopram Hydrobromide [CeleXA] 20 mg PO HS 03/23/16 06/04/21 History ALPRAZolam [Xanax] 0.25 mg PO Q6HR PRN 10/13/16 06/04/21 History Montelukast [Singulair] 10 mg PO HS 10/13/16 06/04/21 History Cholecalciferol [Vitamin D3 (25 1,000 unit PO DAILY 06/21/19 06/04/21 History Mcg = 1000 Iu)] Multivitamin [Multivitamins Adult 1 each PO DAILY 06/21/19 06/04/21 History Gummies] Ibuprofen [Motrin] 400 mg PO HS PRN 06/04/21 06/04/21 History Allergies Allergy/AdvReac Type Severity Reaction Status Date / Time adenosine Allergy Anaphylaxis Verified 06/04/21 14:57 Iodinated Contrast Media Allergy Rash/Hives Verified 06/04/21 14:57 [Iodinated Contrast- Oral and IV Dye] latex Allergy Itching Verified 06/04/21 14:57 nickel Allergy Rash/Hives Verified 06/04/21 14:57 Surgical - Exam Vital Signs Temp Pulse Resp BP Pulse Ox 97.8 F 74 20 171/95 98 06/04/21 15:00 06/04/21 15:00 06/04/21 15:00 06/04/21 15:00 06/04/21 15:00 BMI 24.5 - General no distress - Eyes normal ocular movement - ENT no hearing loss - Neck trachea midline - Respiratory normal respiratory effort, clear to auscultation - Cardiovascular Rhythm: regular Heart Sounds: normal: S1, S2 - Abdomen Abdomen: soft - Integumentary normal turgor - Neurologic no disoriented, no combative - Musculoskeletal normal gait, normal posture - Psychiatric oriented to time, oriented to person, oriented to place, speech is normal, memory intact Breast Exam: BRA: 38D inspection: bilateral grade 3 ptosis Palpation: right breast: multipositional exam no dominate masses of concern right axilla: no adenopathy of concern left breast:multipositional exam no dominate masses of concern left axilla: no adenopathy of concern Results mammogram and ultrasound reviewed; left breast lesion noted reviewed with Dr. Anderson Assessment and Plan Assessment: Impression: Left breast invasive lobular carcinoma T1 N0 M0 ER/ME positive and HER-2 negative grade 2/stage IA Plan: Needle localization lumpectomy/probable ongoing plastic tissue transfer Presentation of case at tumor board Cc: Dr. Walton
== END ==
LOC: WWCWWP 13:40
PROVIDERS: ATTEND Surgery
DX: C50.912 Malignant neoplasm of unspecified site of left female breast (principal); J45.909 Unspecified asthma, uncomplicated; K21.9 Gastro-esophageal reflux disease without esophagitis; E78.5 Hyperlipidemia, unspecified; I10 Essential (primary) hypertension; F41.9 Anxiety disorder, unspecified; F32.A Depression, unspecified; Z79.899 Other long term (current) drug therapy; Z88.8 Allergy status to other drugs, medicaments and biological substances; Z91.041 Radiographic dye allergy status; Z91.040 Latex allergy status; Z91.09 Other allergy status, other than to drugs and biological substances

== ENCOUNTER → 2021-07-23 | Outpatient (CLI) | payer MEDICARE, BC ==
[2021-07-23 11:21] VITALS: BP 166/105; PULSE 75; RESP 19; TEMP 97.5
--- NOTE | 2021-07-23 12:10 | P.PN ---
Subjective Progress Note Date: 07/23/21 Principal diagnosis: stage IA invasive lobular left breast cancer History of Present Illness H&P Date: 06/04/21 Chief Complaint: invasive lobular carcinoma left breast Hue is a 80 year old white female see in consultation for DR. Hadley Walton regarding a biopsy proven invasive lobular carcinoma of the left breast. She had a Bilateral screening mammogram on 04-17-21 which showed a lesion in the left breast. This was followed by a left breast mammogram (04-28-21) and ultrasound (04-28-21). She had an ultrasound core biopsy on 05-14-21. This revealed invasive lobular carcinoma this was grade 2, ER/MO positive, and HER-2 negative. The lesion size is approximately 6 mm. There is no evidence of any cheryle or metastatic involvement. This is a clinical stage IA disease. She does not feel anything in her breast. She has never had any surgery in her breasts before she has not had any history of trauma or infection in the breast. Tumor board on 06-23-21 she felt to be ready for surgery. Caffiene: 3 cups coffee/day nicotine: none; never smoker chocolate: not eat it hormones: used them for 20 years after hysterectomy stopped 28 years ago BCP:20 years Family History: 2 brothers: prostate cancer; one also had kidney cancer patient: skin cancer Hormonal History: menarche: 15 , breast fed: no, age at first : 20 hysterectomy at 40 for prolapse; did not take her ovaries hormones: 20 years BCP: 20 years Surgical History: gastric bypass (lost 100 pounds) hiatal hernia repair Bladder suspension skin cancer Medical History: HTN (no longer takes medication since last week) anxiety Social History: nicotine: none alcohol:none drugs: none - Constitutional Constitutional: Denies chills, Denies fever - EENT Eyes: denies blurred vision, denies pain Ears: bilateral: tinnitus, deny: decreased hearing Ears, nose, mouth and throat: Denies headache, Denies sore throat - Breasts Breasts: bilateral: as per HPI - Cardiovascular Cardiovascular: Denies chest pain, Denies shortness of breath - Respiratory Respiratory: Denies cough - Gastrointestinal Gastrointestinal: Denies abdominal pain, Denies diarrhea, Denies nausea, Denies vomiting - Genitourinary (Female) Genitourinary: Reports kidney stones, Denies dysuria, Denies hematuria - Menstruation Menstruation: Reports as per HPI - Musculoskeletal Comment: arthritis - Integumentary Integumentary: Denies pruritus, Denies rash - Neurological Neurological: Denies numbness, Denies weakness - Psychiatric Psychiatric: Reports anxiety, Reports depression - Endocrine Comment: lost 100 pounds Endocrine: Reports weight change, Denies fatigue - Hematologic/Lymphatic Comment: none - Allergic/Immunologic Allergic/Immunologic: Reports as per HPI, Reports seasonal allergies Past Medical History Past Medical History: Asthma, Cancer, GERD/Reflux, Hyperlipidemia, Hypertension Additional Past Medical History / Comment(s): hx. hiatal hernia, hx skin cancer, vomiting since December [place]. meat but increasing recently w/most things, April 2017 pt dx with sepsis secondary to renal calculi (information provided by patient and daughter on 06/09/17) History of Any Multi-Drug Resistant Organisms: None Reported Past Surgical History: Appendectomy, Bladder Surgery, Hernia Repair, Hysterectomy Additional Past Surgical History / Comment(s): hiatal hernia repair, mayur-en-y, take down of luís, partial gastrectomy Past Anesthesia/Blood Transfusion Reactions: Motion Sickness Additional Past Anesthesia/Blood Transfusion Reaction / Comment(s): no blood tranfusions Past Psychological History: Anxiety, Depression Smoking Status: Never smoker Past Alcohol Use History: Rare Additional Past Alcohol Use History / Comment(s): only drinks one drink at occasional weddings Past Drug Use History: None Reported Objective - Vital Signs Vital signs: Vital Signs Temp 97.5 F L 07/23/21 11:17 Pulse 75 07/23/21 11:17 Resp 19 07/23/21 11:17 BP 166/105 07/23/21 11:17 Pulse Ox 99 07/23/21 11:17 Intake & Output 07/22/21 07/23/21 07/23/21 18:59 06:59 18:59 Weight 65.317 kg - Exam BMI 24.7 - Constitutional General appearance: Present: cooperative - EENT Eyes: Present: EOMI ENT: Present: hearing grossly normal - Neck Neck: Present: normal ROM - Respiratory Respiratory: bilateral: CTA - Cardiovascular Rhythm: regular Heart sounds: normal: S1, S2 - Gastrointestinal General gastrointestinal: Present: soft - Integumentary Integumentary: Present: normal turgor - Musculoskeletal Musculoskeletal: Present: gait normal - Psychiatric Psychiatric: Present: A&O x's 3, appropriate affect, intact judgment & insight - Additional findings Additional findings: Breast examination: Bra: 38D Inspection: Bilateral grade 3 ptosis Palpation: Right breast: Multiple positional exam no dominant masses or nodules of concern Right axilla: No adenopathy of concern Left breast: Multiple positional exam fibrocystic changes no dominant masses or nodules of concern Left axilla: No adenopathy of concern Assessment and Plan Assessment: Impression: Stage I a left breast invasive lobular carcinoma Patient's case presented at tumor board patient is felt to be ready for surgical intervention Plan: Patient would like this to be done via a reduction mammoplasty incision. The procedure will be a needle localization lumpectomy via reduction mammoplasty incision. She is not going to have a sentinel node injection for sentinel node biopsy. She may have onco-plastic tissue transfer. The patient is going to have cardiac clearance as well Risk and benefits of the procedure discussed with the patient and her daughter. Risks include but are not limited to bleeding, infection, reaction to the anesthetic. She understands that she will be asymmetric and we'll most likely opt for a right breast reduction in the future. The patient understands of margins were to be positive that she would need further surgical resection. Patient given the option of seeing a plastic surgeon, she has declined. Cc: Dr. Walton
== END ==
LOC: WWCWWP 10:52
PROVIDERS: ATTEND Surgery
DX: C50.912 Malignant neoplasm of unspecified site of left female breast (principal); Z17.0 Estrogen receptor positive status [ER+]; I10 Essential (primary) hypertension; E78.5 Hyperlipidemia, unspecified; J45.909 Unspecified asthma, uncomplicated; Z91.040 Latex allergy status; Z88.9 Allergy status to unspecified drugs, medicaments and biological substances; Z91.041 Radiographic dye allergy status; Z88.8 Allergy status to other drugs, medicaments and biological substances

== ENCOUNTER → 2021-08-13 | Outpatient (CLI) | payer MEDICARE, BC ==
--- NOTE | 2021-08-13 15:42 | P.PN ---
Progress Note - Text Progress Note Date: 08/13/21 Hue is a 80 year old white female status post left breast lumpectomy via reduction mammoplasty incision. She had removal of a 7 mm invasive lobular carcinoma with negative margins. Postoperatively she is doing well. Physical Examination: Incisions: Clean and dry Sutures removed Impression: Patient doing well postop Patient to follow up with medical oncology Patient follow-up with radiation oncology Patient to follow up here in 4 months or sooner if any questions or concerns
[2021-08-13 16:00] VITALS: BP 167/82; PULSE 79; RESP 16; TEMP 97.9
== END ==
LOC: WWCWWP 15:30
PROVIDERS: ATTEND Surgery
DX: Z48.817 Encounter for surgical aftercare following surgery on the skin and subcutaneous tissue (principal); Z88.8 Allergy status to other drugs, medicaments and biological substances; Z91.041 Radiographic dye allergy status; Z91.040 Latex allergy status; Z88.9 Allergy status to unspecified drugs, medicaments and biological substances

== ENCOUNTER → 2021-12-17 | Outpatient (CLI) | payer MEDICARE, BC ==
[2021-12-17 12:05] VITALS: BP 169/82; PULSE 58; RESP 17; TEMP 98.1
--- NOTE | 2021-12-17 12:32 | P.PN ---
Subjective Progress Note Date: 12/17/21 Principal diagnosis: stage IA invasive lobular cancer left breast Chief Complaint: invasive lobular carcinoma left breast Hue is a 81 year old white female see in consultation for DR. Hadley Walton regarding a biopsy proven invasive lobular carcinoma of the left breast in . She had a Bilateral screening mammogram on 04-17-21 which showed a lesion in the left breast. This was followed by a left breast mammogram (04-28-21) and ultrasound (04-28-21). She had an ultrasound core biopsy on 05-14-21. This revealed invasive lobular carcinoma this was grade 2, ER/AK positive, and HER-2 negative. The lesion size was approximately 6 mm. She underwent a left breast lumpectomy on 08-04-21, and was noted to have negative margins. She did not have radiation therapy. She is on anestrazole. Does not have any lumps masses or nodules of concern in either breast. She did not tolerated alendronate. Note 11-25-21 from medical oncology reviewed. Does have some concern secondary to asymmetry of her breasts related to the lumpectomy. The left side cancer was removed via a reduction mammoplasty incision. Caffiene: 3 cups coffee/day nicotine: none; never smoker chocolate: not eat it hormones: used them for 20 years after hysterectomy stopped 28 years ago BCP:20 years Family History: 2 brothers: prostate cancer; one also had kidney cancer patient: skin cancer Hormonal History: menarche: 15 , breast fed: no, age at first : 20 hysterectomy at 40 for prolapse; did not take her ovaries hormones: 20 years BCP: 20 years Surgical History: gastric bypass (lost 100 pounds) hiatal hernia repair Bladder suspension skin cancer Medical History: HTN (no longer takes medication since last week) anxiety Social History: nicotine: none alcohol:none drugs: none - Constitutional Constitutional: Denies chills, Denies fever - EENT Eyes: denies blurred vision, denies pain Ears: bilateral: tinnitus, deny: decreased hearing Ears, nose, mouth and throat: Denies headache, Denies sore throat - Breasts Breasts: bilateral: as per HPI - Cardiovascular Cardiovascular: Denies chest pain, Denies shortness of breath - Respiratory Respiratory: Denies cough - Gastrointestinal Gastrointestinal: Denies abdominal pain, Denies diarrhea, Denies nausea, Denies vomiting - Genitourinary (Female) Genitourinary: Reports kidney stones, Denies dysuria, Denies hematuria - Menstruation Menstruation: Reports as per HPI - Musculoskeletal Comment: arthritis - Integumentary Integumentary: Denies pruritus, Denies rash - Neurological Neurological: Denies numbness, Denies weakness - Psychiatric Psychiatric: Reports anxiety, Reports depression - Endocrine Comment: lost 100 pounds Endocrine: Reports weight change, Denies fatigue - Hematologic/Lymphatic Comment: none - Allergic/Immunologic Allergic/Immunologic: Reports as per HPI, Reports seasonal allergies Past Medical History Past Medical History: Asthma, Cancer, GERD/Reflux, Hyperlipidemia, Hypertension Additional Past Medical History / Comment(s): hx. hiatal hernia, hx skin cancer, vomiting since December [place]. meat but increasing recently w/most things, April 2017 pt dx with sepsis secondary to renal calculi (information provided by patient and daughter on 06/09/17) History of Any Multi-Drug Resistant Organisms: None Reported Past Surgical History: Appendectomy, Bladder Surgery, Hernia Repair, Hysterectomy Additional Past Surgical History / Comment(s): hiatal hernia repair, mayur-en-y, take down of luís, partial gastrectomy Past Anesthesia/Blood Transfusion Reactions: Motion Sickness Additional Past Anesthesia/Blood Transfusion Reaction / Comment(s): no blood tranfusions Past Psychological History: Anxiety, Depression Smoking Status: Never smoker Past Alcohol Use History: Rare Additional Past Alcohol Use History / Comment(s): only drinks one drink at occasional weddings Past Drug Use History: None Reported Objective - Vital Signs Vital signs: Vital Signs Temp 98.1 F 12/17/21 12:03 Pulse 58 L 12/17/21 12:03 Resp 17 12/17/21 12:03 BP 169/82 12/17/21 12:03 Pulse Ox 97 12/17/21 12:03 FiO2 Intake & Output 12/16/21 12/17/21 12/17/21 18:59 06:59 18:59 Weight 63.503 kg - Exam BMI: 24.8 - Constitutional General appearance: Present: cooperative - EENT Eyes: Present: EOMI ENT: Present: hearing grossly normal - Neck Neck: Present: normal ROM - Respiratory Respiratory: bilateral: CTA - Cardiovascular Rhythm: regular Heart sounds: normal: S1, S2 - Gastrointestinal General gastrointestinal: Present: soft - Integumentary Integumentary: Present: normal turgor - Musculoskeletal Musculoskeletal: Present: gait normal - Psychiatric Psychiatric: Present: A&O x's 3, appropriate affect, intact judgment & insight - Additional findings Additional findings: Breast Exam: BRA: Asymmetry of the breast related to left breast reduction mammoplasty for excision of breast cancer, right breast is larger and grade 3 ptosis Right breast size 36D, and left breast 36C Palpation: Right breast: Multiple positional exam fibrocystic changes no dominant masses or nodules of concern Right axilla: No adenopathy of concern Left breast: Well-healed scar from prior surgery, no dominant masses or nodules of concern Left axilla: No adenopathy of concern Assessment and Plan Assessment: Impression: Patient status post left breast lumpectomy for invasive lobular carcinoma no evidence of recurrence Asymmetry of the breast related to left breast reduction mammoplasty to remove the lesion, symptomatic causing the patient concern, difficult to find close to set well Plan: Right breast reduction mammoplasty secondary to asymmetry related to cancer treatment; we'll most likely be done in May 2022 Bilateral mammogram in April 2022 with follow up appointment Eva Carrera, continue to follow-up medical oncology CC: Dr. Walton
== END ==
LOC: WWCWWP 11:51
PROVIDERS: ATTEND Surgery
DX: Z08 Encounter for follow-up examination after completed treatment for malignant neoplasm (principal); Z85.3 Personal history of malignant neoplasm of breast; N64.89 Other specified disorders of breast; I10 Essential (primary) hypertension; F41.9 Anxiety disorder, unspecified; J45.909 Unspecified asthma, uncomplicated; E78.5 Hyperlipidemia, unspecified

== ENCOUNTER → 2022-04-05 | Outpatient (CLI) | payer MEDICARE, BC ==
--- NOTE | 2022-04-05 11:35 | MM ---
Reason for Exam: Follow-up at short interval from prior study. Last screening mammogram was performed 12 month(s) ago. Patient History: Menarche at age 17. First Full-Term at age 19. Left ovary removed at age 40. Right ovary removed at age 40. Hysterectomy at age 40. Postmenopausal. Other cancer. Breast cancer, left, age 80. Patient used Estrogen for 25 years. Patient used Hormonal Contraceptives for 15 years. 05/14/2021, US biopsy breast VAD LT - 2 on the Left side. 08/04/2021, Lumpectomy on the Left side. 08/04/2021, Lumpectomy on the Left side. 08/04/2021, Malignant Core Biopsy on the left side. Prior Study Comparison: 07/10/2015 Bilateral Screening Mammogram, [facility]. 03/22/2019 Screening Mammogram, Unknown. 10/09/2019 Left Diagnostic Mammogram, [facility]. 04/17/2021 Bilateral MG 3D screening mammo w/cad, [facility]. Tissue Density: The breast tissue is heterogeneously dense. This may lower the sensitivity of mammography. Findings: Analyzed By CAD. There is a neodensity upper outer right breast 11 cm from the nipple measuring approximately 8 mm. Ultrasound is recommended. Postoperative changes left breast. Benign calcifications seen bilaterally. Overall Assessment: Incomplete: need additional imaging evaluation, BI-RAD 0 Management: Diagnostic Breast Ultrasound of the right breast. A clinical breast exam by your physician is recommended on an annual basis and results should be correlated with mammographic findings. This exam should not preclude additional follow-up of suspicious palpable abnormalities. Results were given to the patient verbally at the time of exam. Electronically signed and approved by: Facundo Tirado M.D. Radiologis
--- NOTE | 2022-04-05 11:41 | USB ---
Patient History: Menarche at age 17. First Full-Term at age 19. Left ovary removed at age 40. Right ovary removed at age 40. Hysterectomy at age 40. Postmenopausal. Other cancer. Breast cancer, left, age 80. Patient used Estrogen for 25 years. Patient used Hormonal Contraceptives for 15 years. 05/14/2021, US biopsy breast VAD LT - 2 on the Left side. 08/04/2021, Lumpectomy on the Left side. 08/04/2021, Lumpectomy on the Left side. 08/04/2021, Malignant Core Biopsy on the left side. Technique: Method: Targeted. Patient Position: Supine. Prior Study Comparison: 03/22/2019 Screening Mammogram, Unknown. 10/09/2019 Left Diagnostic Mammogram, [facility]. 04/17/2021 Bilateral MG 3D screening mammo w/cad, [facility]. Findings: The upper outer quadrant of the right breast and the axilla of the right breast were scanned. Rt 100 10CFN there is a [id number] irregular hypoechoic solid mass, taller than wide with some vascularity.Hypoechoic mass at the right 1:00 position 10 cm from the nipple measures approximately 6 x 5 x 5 mm and is suspicious for malignancy. No additional masses seen. No evidence for adenopathy.. Overall Assessment: Suspicious, BI-RAD 4 Management: Ultrasound Core Biopsy of the right breast. A clinical breast exam by your physician is recommended on an annual basis and results should be correlated with mammographic findings. This exam should not preclude additional follow-up of suspicious palpable abnormalities. Results were given to the patient verbally at the time of exam. Electronically signed and approved by: Facundo Tirado M.D. Radiologis
== END | disposition home or self-care (01) ==
LOC: RADMAMWWP 10:50
PROVIDERS: ATTEND Surgery
DX: R92.1 Mammographic calcification found on diagnostic imaging of breast (principal); Z85.3 Personal history of malignant neoplasm of breast; Z78.0 Asymptomatic menopausal state; Z90.721 Acquired absence of ovaries, unilateral
CPT/HCPCS: 77066; 76642; G0279; 77062

== ENCOUNTER → 2022-04-06 | Day surgery (SDC) | payer MEDICARE, BC ==
--- NOTE | 2022-04-12 08:38 | MM ---
Reason for Exam: Post Procedure Mammogram. Last screening mammogram was performed less than 1 month ago. Patient History: Menarche at age 17. First Full-Term at age 19. Left ovary removed at age 40. Right ovary removed at age 40. Hysterectomy at age 40. Postmenopausal. Other cancer. Breast cancer, left, age 80. Patient used Estrogen for 25 years. Patient used Hormonal Contraceptives for 15 years. 05/14/2021, US biopsy breast VAD LT - 2 on the Left side. 08/04/2021, Lumpectomy on the Left side. 08/04/2021, Lumpectomy on the Left side. 08/04/2021, Malignant Core Biopsy on the left side. Prior Study Comparison: 10/09/2019 Left Diagnostic Mammogram, [facility]. 04/17/2021 Bilateral MG 3D screening mammo w/cad, [facility]. 04/05/2022 Bilateral MG 3D diag mammo w/cad KYLIE, [facility]. Tissue Density: Right: The breast tissue is heterogeneously dense. This may lower the sensitivity of mammography. Pathology Description: Location: 1 o'clock. Needle Type: Mammotome Cores: 7 Gauge: 13 The procedure of ultrasound guided core biopsy was explained to the patient. Benefits, alternatives, and risks were discussed. An informed consent was then obtained. The patient was placed in supine positioning for imaging and for the procedure. The overlying skin was prepped and draped in usual sterile fashion. Lidocaine buffered with bicarbonate was used as anesthetic into the skin and subcutaneous tissue up to area of concern in the right breast. Under ultrasound guidance, a 12-gauge vacuum assisted biopsy gun device was used to obtain 7 core samples. Following this, a biopsy clip was left in lesion. The patient tolerated the procedure well without any immediate complication. The patient was kept in the radiology department for short stay after the procedure and then discharged home in stable condition. Postprocedure mammogram: The patient was transferred to mammography for physician ordered post procedure mammogram for clip placement verification. Post procedure mammogram demonstrates clip to be in appropriate position within the right breast. Impression: Successful, uncomplicated ultrasound guided core biopsy of area of concern in the right breast, full pathology results to follow. The procedure of ultrasound guided core biopsy was explained to the patient. Benefits, alternatives, and risks were discussed. An informed consent was then obtained. The patient was placed in supine positioning for imaging and for the procedure. The overlying skin was prepped and draped in usual sterile fashion. Lidocaine buffered with bicarbonate was used as anesthetic into the skin and subcutaneous tissue up to area of concern in the right breast. Under ultrasound guidance, a 12-gauge vacuum assisted biopsy gun device was used to obtain 7 core samples. Following this, a biopsy clip was left in lesion. The patient tolerated the procedure well without any immediate complication. The patient was kept in the radiology department for short stay after the procedure and then discharged home in stable condition. Postprocedure mammogram: The patient was transferred to mammography for physician ordered post procedure mammogram for clip placement verification. Post procedure mammogram demonstrates a biopsy clip to be in appropriate position within the right breast. Impression: Successful, uncomplicated ultrasound guided core biopsy of area of concern in the right breast, full pathology results to follow. Pathology Results: Result: Malignant, Invasive ductal carcinoma. 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 See Surgical Pathology Cancer Case Summary and Comment. Overall Assessment: Malignant Assessment: MG diagnostic mammo RT wo CAD - Right: Known biopsy proven malignancy, BI-RAD 6. Management: Surgical Consultation of the right breast. Electronically signed and approved by: Vandana Ruiz
== END ==
LOC: RADUSWWP 07:19
PROVIDERS: ATTEND Surgery
DX: D05.11 Intraductal carcinoma in situ of right breast (principal); Z85.3 Personal history of malignant neoplasm of breast
CPT/HCPCS: 88305; 88342; 88341; 77065; 19083; A4648

== ENCOUNTER → 2022-04-16 | Outpatient (CLI) | payer MEDICARE, BC ==
--- NOTE | 2022-04-16 12:02 | P.PN ---
Subjective Progress Note Date: 04/16/22 Principal diagnosis: Invasive ductal carcinoma right breast/status post treatment invasive lobular carcinoma left breast Hue is a 81 year old white female see in consultation for DR. Hadley Walton regarding a biopsy proven invasive lobular carcinoma of the left breast in 07-01. She had a Bilateral screening mammogram on 04-17-21 which showed a lesion in the left breast. This was followed by a left breast mammogram (04-28-21) and ultrasound (04-28-21). She had an ultrasound core biopsy on 05-14-21. This revealed invasive lobular carcinoma this was grade 2, ER/WV positive, and HER-2 negative. The lesion size was approximately 6 mm. She underwent a left breast lumpectomy on 08-04-21, and was noted to have negative margins. She did not have radiation therapy. She is on anestrazole. Does not have any lumps masses or nodules of concern in either breast. She did not tolerated alendronate which she was initially on for osteoporosis. Note 11-25-21 from medical oncology reviewed. Does have some concern secondary to asymmetry of her breasts related to the annia mpectomy. The left side cancer was removed via a reduction mammoplasty incision. 04-16-22 The patient had a bilateral diagnostic mammogram performed on . This led to ultrasound of the right breast, which revealed a density in the upper-outer quadrant of the right breast measuring approximately 8 mm in size. An ultrasound core biopsy was subsequently performed on . This revealed microinvasive moderately differentiated ductal carcinoma grade 2 ER/WV positive HER-2/lillian positive. It also revealed some ductal carcinoma in situ. The patient herself did not feel any lumps masses or nodules of concern in either breast. She did not have any chemotherapy or radiation therapy following the surgery for her left breast invasive lobular carcinoma. She is on anastrozole presently. She was scheduled for a symmetry procedure of the right breast in May. Caffiene: 3 cups coffee/day nicotine: none; never smoker chocolate: not eat it hormones: used them for 20 years after hysterectomy stopped 28 years ago BCP:20 years Family History: 2 brothers: prostate cancer; one also had kidney cancer patient: skin cancer, bilateral breast cancer Hormonal History: menarche: 15 , breast fed: no, age at first : 20 hysterectomy at 40 for prolapse; did not take her ovaries hormones: 20 years BCP: 20 years Surgical History: gastric bypass (lost 100 pounds) hiatal hernia repair Bladder suspension skin cancer Medical History: HTN (no longer takes medication since last week) anxiety low bone density Social History: nicotine: none alcohol:none drugs: none - Constitutional Constitutional: Denies chills, Denies fever - EENT Eyes: denies blurred vision, denies pain Ears: bilateral: tinnitus, deny: decreased hearing Ears, nose, mouth and throat: Denies headache, Denies sore throat - Breasts Breasts: bilateral: as per HPI - Cardiovascular Cardiovascular: Denies chest pain, Denies shortness of breath - Respiratory Respiratory: Denies cough - Gastrointestinal Gastrointestinal: Denies abdominal pain, Denies diarrhea, Denies nausea, Denies vomiting - Genitourinary (Female) Genitourinary: Reports kidney stones, Denies dysuria, Denies hematuria - Menstruation Menstruation: Reports as per HPI - Musculoskeletal Comment: arthritis - Integumentary Integumentary: Denies pruritus, Denies rash - Neurological Neurological: Denies numbness, Denies weakness - Psychiatric Psychiatric: Reports anxiety, Reports depression - Endocrine Comment: lost 100 pounds Endocrine: Reports weight change, Denies fatigue - Hematologic/Lymphatic Comment: none - Allergic/Immunologic Allergic/Immunologic: Reports as per HPI, Reports seasonal allergies Past Medical History Past Medical History: Asthma, Cancer, GERD/Reflux, Hyperlipidemia, Hypertension Additional Past Medical History / Comment(s): hx. hiatal hernia, hx skin cancer, vomiting since December edgard. meat but increasing recently w/most things, April 2017 pt dx with sepsis secondary to renal calculi (information provided by patient and daughter on 06/09/17) History of Any Multi-Drug Resistant Organisms: None Reported Past Surgical History: Appendectomy, Bladder Surgery, Hernia Repair, Hysterectomy Additional Past Surgical History / Comment(s): hiatal hernia repair, mayur-en-y, take down of luís, partial gastrectomy Past Anesthesia/Blood Transfusion Reactions: Motion Sickness Additional Past Anesthesia/Blood Transfusion Reaction / Comment(s): no blood tranfusions Past Psychological History: Anxiety, Depression Smoking Status: Never smoker Past Alcohol Use History: Rare Additional Past Alcohol Use History / Comment(s): only drinks one drink at occasional weddings Past Drug Use History: None Reported Objective - Constitutional General appearance: Present: cooperative - EENT Eyes: Present: EOMI ENT: Present: hearing grossly normal - Neck Neck: Present: normal ROM - Respiratory Respiratory: bilateral: CTA - Cardiovascular Rhythm: regular Heart sounds: normal: S1, S2 - Gastrointestinal General gastrointestinal: Present: soft - Integumentary Integumentary Comment(s): biopsy site clean and dry right breast Integumentary: Present: normal turgor - Musculoskeletal Musculoskeletal: Present: gait normal - Psychiatric Psychiatric: Present: A&O x's 3, appropriate affect, intact judgment & insight - Additional findings Additional findings: Breast Exam: BRA: 36C inspection: right breast grade 3 ptosis, right breast grade 2 ptosis palpation: right breast: Multi-positional exam no dominant masses or nodules of concern, biopsy site clean and dry Right axilla: No adenopathy of concern Left breast: Multi-positional exam well-healed scars from prior reduction mammoplasty, no evidence of any recurrent cancer Left axilla: No adenopathy of concern Assessment and Plan Assessment: Impression: Patient status post left breast reduction mammoplasty incision for lumpectomy of a stage IA invasive lobular carcinoma, patient did not receive radiation or chemotherapy, patient is on an anti-hormone medication [place] [id number] revealed a lesion of concern in the right breast biopsy-proven stage IA invasive ductal carcinoma. Plan: Presentation of case at tumor board Reduction mammoplasty incision to do a right breast lumpectomy, we will not do a sentinel node biopsy at this time discussion of case with medical oncology secondary to Her 2 status and ? joselito- adjuvant therapy CC: Dr. Walton
[2022-04-16 12:05] VITALS: PULSE 90; RESP 17; TEMP 98.6
[2022-04-16 12:16] VITALS: BP 187/102
== END ==
LOC: WWCWWP 11:22
PROVIDERS: ATTEND Surgery
DX: D05.11 Intraductal carcinoma in situ of right breast (principal); Z98.86 Personal history of breast implant removal; Z90.12 Acquired absence of left breast and nipple; Z91.041 Radiographic dye allergy status; Z91.040 Latex allergy status; Z91.048 Other nonmedicinal substance allergy status; Z88.8 Allergy status to other drugs, medicaments and biological substances; I10 Essential (primary) hypertension; F41.9 Anxiety disorder, unspecified; Z80.42 Family history of malignant neoplasm of prostate; Z80.51 Family history of malignant neoplasm of kidney

== ENCOUNTER 2022-05-11 07:57 | Day surgery (SDC) | payer MEDICARE, BC ==
[2022-05-06 14:35] VITALS: BMI 24.5
[~2022-05-11 07:57] MED LIST changes: -ACETAMINOPHEN IV (For NPO) 1,000 MG in EMPTY BAG 1 BAG IVPB ONE; -AMPICILLIN-SULBACTAM 3 GM in SODIUM CHLORIDE 0.9% 100 ML IVPB ONE; -CHLORHEXIDINE GLUCONATE 15 ML CUP MUCOUS MEM ONE; -DEXAMETHASONE SOD PHOSPHATE 10 MG/ML 1 ML VIAL IV ONE; +DEXAMETHASONE SOD PHOSPHATE 4 MG/ML 1 ML VIAL IV ONE; -ENOXAPARIN 40 MG/0.4 ML SYRINGE SQ STA; +HEPARIN SODIUM,PORCINE/PF 5,000 UNIT/0.5 ML SYRINGE SQ PRN; +HYDROmorphone 0.5 MG/0.5 ML SYRINGE IVP PRN; -HYDROmorphone 1 MG/ML 1 ML SYRINGE IVP PRN; +LACTATED RINGERS 1,000 ML IV SCH; +LIDOCAINE 1% (10MG/ML) FOR IV START INTRADERMA PRN; -PANTOPRAZOLE 40 MG/10 ML VIAL IV STA; +Pre Op ABX Message 1 EACH MISC MISCELLANE ONE; -ceFAZolin 2 GM in SODIUM CHLORIDE 0.9% 100 ML IVPB ONE
[2022-05-11] MEDS ORDERED: ALPRAZolam 0.25 MG TAB PO ONE (08:56)
[2022-05-11] MEDS ORDERED: ALPRAZolam 0.25 MG TAB ONE (08:59)
[2022-05-11] MEDS ORDERED: LIDOCAINE 1% INJ 10MG/ML (5 ML VIAL-PF) SQ ONE (10:01)
--- NOTE | 2022-05-11 11:28 | P.NAPBC ---
NAPBC Queries - NAPBC Queries Was patient's case review presented at [facility] tumor board? If no, comment.: Yes Was patient's pathology reviewed at [facility]? If no, comment.: Yes Was breast conservation surgery offered? If no, comment.: Yes Was sentinel node biopsy offered? If no, comment.: Yes Was diagnosis confirmed by percutaneous core biopsy? If no, comment.: Yes Is patient mastectomy patient?: No Was a preop referral to reconstructive surgeon offered?: No Clinical Stage: Stage IA [id number]+Pr+Her2+G2
[2022-05-11] MEDS ORDERED: HYDROmorphone (PF) 1 MG/ML ONE (11:50)
[2022-05-11] MEDS ORDERED: PROPOFOL 10 MG/ML 20 ML VIAL IV ONE (11:50)
[2022-05-11] MEDS ORDERED: LIDOCAINE 2% INJ 20 MG/ML (2 ML VIAL) ONE (11:50)
[2022-05-11] MEDS ORDERED: fentaNYL (PF) 50 MCG/ML 2 ML AMP ONE (11:50)
[2022-05-11] MEDS ORDERED: SUCCINYLCHOLINE CHLORIDE 200 MG/10 ML VIAL IV ONE (11:50)
[2022-05-11] MEDS ORDERED: MIDAZOLAM 2 MG/2 ML VIAL ONE (11:50)
--- NOTE | 2022-05-11 11:51 | NM ---
EXAMINATION TYPE: NM sentinel node injection DATE OF EXAM: 05/11/2022 COMPARISON: Correlation mammogram 04/05/2022 HISTORY: 81-year-old female right breast D05.11 INTRADUCTAL CARCINOMA IN SITU OF RT BREAST TECHNIQUE AND FINDINGS: The procedure of sentinel lymph node injection was explained to the patient. The benefits, alternatives, and risks were discussed. An informed consent was then obtained. Overlying skin is cleaned with sterile alcohol. Following this, 491 uCi Tc99m Tilmanocept was inject ed in the upper outer aspect of the right nipple intradermally. The patient tolerated the procedure well without any immediate complication. The patient was kept in the radiology department for short stay after the procedure and then taken to surgery for surgical p rocedure what is presumed intraoperative gamma probe will be used for sentinel lymph node detection. IMPRESSION: Right breast radiotracer injection for sentinel node localization as above.
[2022-05-11] MEDS ORDERED: SODIUM CHLORIDE 0.9% 50 ML with ceFAZolin 2,000 MG IV ONE ×2 (12:20)
[2022-05-11] MEDS ORDERED: LACTATED RINGERS 1,000 ML IV ONE (13:48)
--- NOTE | 2022-05-11 14:45 | P.OP ---
Date of Procedure: 05/11/22 Preoperative Diagnosis: Stage I invasive ductal carcinoma right breast, asymmetry of the breast secondary to prior left breast cancer Postoperative Diagnosis: Same Procedure(s) Performed: Right breast sentinel node biopsy, right reduction mammoplasty, right breast needle localization lumpectomy, right breast onco- plastic tissue transfer 47 cm Anesthesia: JUVENCIO Surgeon: Cristy Bowden Estimated Blood Loss (ml): 20 IV fluids (ml): 1,000 Pathology: other ([place] lymph node, right breast tissue) Condition: stable Disposition: same day Indications for Procedure: Right breast stage I invasive ductal carcinoma, asymmetry related to cancer surgery on the left breast Operative Findings: Fibrofatty breast tissue Description of Procedure: The patient is a 81-year-old white female diagnosed with invasive ductal right breast carcinoma. Her breasts are asymmetric secondary to prior left breast surgery for cancer. The patient wished to have a resection via a mammoplasty incision secondary to the asymmetry. Additionally sentinel node biopsy was recommended by medical oncology as this is a HER-2 positive tumor. The patient was first taken to the radiology department. In the radiology Department needle localization of the area of concern was performed. Additionally periareolar injection of radioactive tracer was performed. The patient was then brought to the preoperative area. In the preoperative area skin markings were made for a Lutz pattern reduction mammoplasty using an inferior pedicle. Following this the patient was taken to the operating room. Following induction of anesthesia the neoprobe was used to interrogate the axilla. Radioactivity was identified. The right and left breasts were prepped and draped in sterile fashion. An incision was made in the axilla using the neoprobe for guidance. This was carried down to the deep axillary tissues where a radioactive lymph node was identified. This tissue was resected using the electrocautery device as well as the Harmonic scalpel. The 10 second count on the lymph node was 8540. The 10 second background count was 30. No other palpable adenopathy of concern was identified. At this point the wound was well irrigated. The deep tissues were closed using 3-0 Vicryl suture. The skin was closed using 4-0 Monocryl. Following this the area of the breast was approached. Markings had been placed in the pre op area. Using these markings the the inferior pedicle was de-epithelialized. A U-shaped portion of breast tissue was removed again using the preplaced placed lines for the Lutz pattern reduction mammoplasty. The area of the dissection was carried down to the pectoralis muscle. The wound was well irrigated. Surgicel in powder form was placed after we were assured that hem ostasis was attained. 2 drains were placed in the medial and lateral aspect of the resection. At this point the area of the tumor was addressed. The tumor was approximately at the 12 o'clock position superior to the nipple areolar complex. A wide excision of tissue directly under the skin was dissected down to the area of the chest wall. The cavity size for the tumor resection was 5 x 4 cm. Following this the medial pillar 4 x 3 cm was formed andthe lateral pillar 5 x 3 cm was formed. The tissue mobilization for this was 47 cm. Titanium clips were placed. The specimen which had been resected was painted for orientation and sent to radiology where the area of concern was confirmed to have been resected. Following this the pillars were brought together using 3-0 Vicryl suture. The Lutz pattern incisions were then brought together. 3-0 Vicryl suture was placed in the subcutaneous tissue. 4-0 ethibond subcuticular suture was placed. This was followed by a nylon skin suture. At this point the nipple aeorlar complex was matured areolar complex was matured. A 45 cookie cutter was used to rhonda the skin. The skin and subcutaneous tissues were resected. The nipple areolar complex was brought out into the incision. This was secured using interrupted 3-0 Vicryl subcontinuous suture. This was followed by 4-0 Monocryl subcuticular suture. A nylon skin suture was then placed. The drains were secured in place using a 3-0 nylon suture. The patient tolerated the procedure in stable condition. All instrument and sponge counts were correct at the end of the case.
--- NOTE | 2022-05-11 14:47 | P.DS ---
Providers Attending physician: Cristy Bowden Primary care physician: Hadley Walton Plan - Discharge Summary Discharge Rx Participant: No New Discharge Prescriptions: New HYDROcodone/APAP 5-325MG [[place] 5] 1 - 2 each PO Q4H PRN #10 tab PRN Reason: Pain No Action Montelukast [Singulair] 10 mg PO DAILY ALPRAZolam [Xanax] 0.25 mg PO BID Metoprolol Tartrate [Lopressor] 25 mg PO BID Anastrozole 1 mg PO DAILY Discharge Medication List ALPRAZolam [Xanax] 0.25 mg PO BID 10/13/16 [History] Montelukast [Singulair] 10 mg PO DAILY 10/13/16 [History] Anastrozole 1 mg PO DAILY 12/17/21 [History] HYDROcodone/APAP 5-325MG [[place] 5] 1 - 2 each PO Q4H PRN #10 tab 05/06/22 [Rx] Metoprolol Tartrate [Lopressor] 25 mg PO BID 05/06/22 [History] Follow up Appointment(s)/Referral(s): Cristy Bowden MD [STAFF PHYSICIAN] - 05/20/22 11:20 am Activity/Diet/Wound Care/Special Instructions: Do not drive until seen by Dr. Wan Teaching patient drain care May shower after 48 hours Wear bra at all times unless showering Discharge Disposition: HOME SELF-CARE
[2022-05-11 15:02] VITALS: TEMP 97.4
[2022-05-11 15:32] VITALS: RESP 16
[2022-05-11] MEDS ORDERED: ONDANSETRON 4 MG/2 ML VIAL ONE (16:39)
[2022-05-11] MEDS ORDERED: ONDANSETRON 4 MG/2 ML VIAL IVP ONE (16:40)
[2022-05-11 17:29] VITALS: BP 162/88; PULSE 62
--- NOTE | 2022-05-19 08:46 | MM ---
Pathology Description: The procedure of needle localization with wire placement and than surgical excision was explained to the patient. Benefits, alternatives, and risks were discussed. An informed consent was then obtained. The shortest pathway for procedure was chosen. Shortest pathway was a superior approach. The overlying skin was prepped and draped in usual sterile fashion. Lidocaine was used as anesthetic into the skin and subcutaneous tissue up to the level of area of concern. A 7 cm Kopan's needle was used. It was placed via a superior approach under mammographic guidance. Subsequent 90 degrees mammogram show the needle to be in satisfactory position relative to the targeted area. At this point, wire was placed and the needle was withdrawn. The wire was fixed to patient's skin. Images were marked for surgeon. The patient tolerated the procedure well without any immediate complication. The patient was kept in the radiology department for short stay after the procedure and then taken to surgery for surgical excision. Targeted clip, density, and wire are identified in specimen mammogram. The patient was kept in hospital for short stay after the procedure and then discharged home in stable condition. Impression: Successful, uncomplicated needle localization with wire placement and surgical excision of biopsy-proven site of right breast cancer, full pathology results to follow. Pathology Results: Result: Malignant, Invasive ductal carcinoma. A. RIGHT BREAST, LUMPECTOMY: Invasive moderately differentiated ductal carcinoma (Grade 2), margins negative. See Surgical Pathology Cancer Case Summary. B. RIGHT AXILLARY SENTINEL LYMPH NODES, BIOPSY: Two lymph nodes negative for metastasis. CK7 and MATT immunoperoxidase stains are confirmatory (controls appropriate). C. DE-EPITHELIALIZED TISSUE: Benign skin without histopathologic abnormality. D. RIGHT BREAST, MASTECTOMY: Benign breast with fibrocystic changes. Overall Assessment: Malignant Management: Surgical Consultation of the right breast. Electronically signed and approved by: Cuco Guan M.D. Radiologist
== END 2022-05-11 17:44 | disposition home or self-care (01) ==
LOC: OR 07:57
PROVIDERS: ATTEND Surgery
DX: C50.911 Malignant neoplasm of unspecified site of right female breast (principal); I10 Essential (primary) hypertension; I25.10 Atherosclerotic heart disease of native coronary artery without angina pectoris; J45.909 Unspecified asthma, uncomplicated; F41.9 Anxiety disorder, unspecified; I25.2 Old myocardial infarction; Z85.3 Personal history of malignant neoplasm of breast; Z90.710 Acquired absence of both cervix and uterus; Z79.899 Other long term (current) drug therapy
CPT/HCPCS: 38525; 19318; 14301; 19301; 88305; 88342; 88307; 88341; 76098; 19281; 38792; C1819; A9520; J2250; J0330; J1100; J2405; J0690; J2001 ×2; J3010; J1170; J2704; J1644

== ENCOUNTER → 2022-05-20 | Outpatient (CLI) | payer MEDICARE, BC ==
[2022-05-20 11:13] VITALS: BP 156/85; PULSE 63; RESP 13; TEMP 97.8
--- NOTE | 2022-05-20 11:19 | P.PN ---
Progress Note - Text Progress Note Date: 05/20/22 Hue is status post right lumpectomy and SNB on 05-11-22. Her margins were negative and the nodes were negative; The tumor size was 5 mm. This was done via a reduction mammoplasty incision. She is doing well post procedure. Sacral examination: Lungs: Clear Heart: Regular rate and rhythm Incisions: Clean and dry LOUIE drains minimal output Plan: Remove LOUIE drains Remove sutures Patient will follow with medical oncology and radiation oncology Patient to follow. 4 months unless she has any questions or concerns CC: Dr. Walton
== END ==
LOC: WWCWWP 10:40
PROVIDERS: ATTEND Surgery
DX: Z85.3 Personal history of malignant neoplasm of breast (principal); Z91.048 Other nonmedicinal substance allergy status; Z91.041 Radiographic dye allergy status

== ENCOUNTER → 2022-08-28 | Outpatient (CLI) | payer MEDICARE, BC ==
--- NOTE | 2022-08-29 07:30 | MR ---
EXAMINATION TYPE: MR brain and iac wo/w con DATE OF EXAM: 08/28/2022 COMPARISON: None HISTORY: Bilateral hearing loss, dizziness TECHNIQUE: Multiplanar, multisequence images of the brain and brainstem is performed without and with IV contras t, utilizing 6.5 mL intravenous Gadavist . FINDINGS: The ventricles, basal cisterns and sulci over the convexities are mildly enlarged consistent with mil d generalized atrophy which is appropriate for the patient's age. There is marked confluent and multifocal areas of abnormal increased signal intensity on the FLAIR im ages in the white matter both cerebral hemispheres and within the bianca consistent with chronic ischem ic change. Based on diffusion-weighted imaging there is no diffusion restriction or acute ischemic ev ent. There is no mass effect or shift of the midline structures. Following contrast administration, there is no pathological enhancement throughout the brain parenchy ma. The posterior fossa including the brainstem, fourth ventricle, cerebellar pontine angles and internal auditory canals and contents are normal and symmetric without mass or pathological enhancement. The intraorbital contents appear normal and symmetric. Visualized paranasal sinuses are well aerated. There is mild to moderate fluid in the right mastoid air cells. IMPRESSION: 1. Age-appropriate atrophy. 2. Marked chronic ischemic white matter changes in ischemic changes within the bianca. 3. Mild to moderate fluid in the right mastoid air cells. 4. No acute ischemic event or pathological enhancement 5. No abnormality of the cerebellar pontine angles or internal auditory canals.
== END | disposition home or self-care (01) ==
LOC: RADMRIMAIN 11:02
PROVIDERS: ATTEND Nurse Practitioner Family
DX: I67.82 Cerebral ischemia (principal); G31.1 Senile degeneration of brain, not elsewhere classified; H93.13 Tinnitus, bilateral; H93.3X3 Disorders of bilateral acoustic nerves; I67.89 Other cerebrovascular disease; H91.93 Unspecified hearing loss, bilateral
CPT/HCPCS: 70553; A9585

== ENCOUNTER → 2022-09-02 | Outpatient (CLI) | payer MEDICARE, BC ==
[2022-09-02 15:34] VITALS: BP 182/100; PULSE 71; RESP 18; TEMP 98
--- NOTE | 2022-09-02 16:41 | P.PN ---
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 This led to ultrasound of the right breast, which revealed a density in the upper-outer quadrant of the right breast measuring approximately 8 mm in size. An ultrasound core biopsy was subsequently performed on . This revealed microinvasive moderately differentiated ductal carcinoma grade 2 ER/[place] positive HER-2/lillian positive. It also revealed some ductal carcinoma in situ. The patient herself did not feel any lumps masses or nodules of concern in either breast. She did not have any chemotherapy or radiation therapy following the surgery for her left breast invasive lobular carcinoma. She is on anastrozole presently. She was scheduled for a symmetry procedure of the right breast in May. She underwent a right breast lumpectomy adn SNB on 05-11-22. This was done via a reduction mammoplasty incision. Is not complaining of any new lumps masses or nodules of concern in either breast. She finished her chemotherapy yesterday for the right breast tumor. She received Taxol and Herceptin. Anastrozole is being held shile she is on Taxol. Additionally she had an appointment with radiation oncology and opted to not undergo radiation therapy. Her last mammogram was in . Caffiene: 3 cups coffee/day nicotine: none; never smoker chocolate: not eat it hormones: used them for 20 years after hysterectomy stopped 28 years ago BCP:20 years Family History: 2 brothers: prostate cancer; one also had kidney cancer patient: skin cancer, bilateral breast cancer Hormonal History: menarche: 15 , breast fed: no, age at first : 20 hysterectomy at 40 for prolapse; did not take her ovaries hormones: 20 years BCP: 20 years Surgical History: gastric bypass (lost 100 pounds) hiatal hernia repair Bladder suspension skin cancer Medical History: HTN (no longer takes medication since last week) anxiety low bone density Social History: nicotine: none alcohol:none drugs: none - Constitutional Constitutional: Denies chills, Denies fever - EENT Eyes: denies blurred vision, denies pain Ears: bilateral: tinnitus, deny: decreased hearing Ears, nose, mouth and throat: Denies headache, Denies sore throat - Breasts Breasts: bilateral: as per HPI - Cardiovascular Cardiovascular: Denies chest pain, Denies shortness of breath - Respiratory Respiratory: Denies cough - Gastrointestinal Gastrointestinal: Denies abdominal pain, Denies diarrhea, Denies nausea, Denies vomiting - Genitourinary (Female) Genitourinary: Reports kidney stones, Denies dysuria, Denies hematuria - Menstruation Menstruation: Reports as per HPI - Musculoskeletal Comment: arthritis - Integumentary Integumentary: Denies pruritus, Denies rash - Neurological Neurological: Denies numbness, Denies weakness - Psychiatric Psychiatric: Reports anxiety, Reports depression - Endocrine Comment: lost 100 pounds Endocrine: Reports weight change, Denies fatigue - Hematologic/Lymphatic Comment: none - Allergic/Immunologic Allergic/Immunologic: Reports as per HPI, Reports seasonal allergies Past Medical History Past Medical History: Asthma, Cancer, GERD/Reflux, Hyperlipidemia, Hypertension Additional Past Medical History / Comment(s): hx. hiatal hernia, hx skin cancer, vomiting since December [place]. meat but increasing recently w/most things, April 2017 pt dx with sepsis secondary to renal calculi (information provided by patient and daughter on 06/09/17) History of Any Multi-Drug Resistant Organisms: None Reported Past Surgical History: Appendectomy, Bladder Surgery, Hernia Repair, Hysterectomy Additional Past Surgical History / Comment(s): hiatal hernia repair, mayur-en-y, take down of luís, partial gastrectomy Past Anesthesia/Blood Transfusion Reactions: Motion Sickness Additional Past Anesthesia/Blood Transfusion Reaction / Comment(s): no blood tranfusions Past Psychological History: Anxiety, Depression Smoking Status: Never smoker Past Alcohol Use History: Rare Additional Past Alcohol Use History / Comment(s): only drinks one drink at [facility] Past Drug Use History: None Reported Objective - Vital Signs Vital signs: Vital Signs Temp 98.0 F 09/02/22 15:31 Pulse 71 09/02/22 15:31 Resp 18 09/02/22 15:31 BP 182/100 09/02/22 15:31 Pulse Ox 98 09/02/22 15:31 FiO2 Intake & Output 09/01/22 09/02/22 09/02/22 18:59 06:59 18:59 Weight 65.317 kg - Constitutional General appearance: Present: cooperative - EENT Eyes: Present: EOMI ENT: Present: hearing grossly normal - Neck Neck: Present: normal ROM - Respiratory Respiratory: bilateral: CTA - Cardiovascular Rhythm: regular Heart sounds: normal: S1, S2 - Gastrointestinal General gastrointestinal: Present: soft - Integumentary Integumentary: Present: normal turgor - Musculoskeletal Musculoskeletal: Present: gait normal - Psychiatric Psychiatric: Present: A&O x's 3, appropriate affect, intact judgment & insight - Additional findings Additional findings: Bresat Exam: BRA: 36C Inspection: bilateral well healed scars Palpation: Right breast: Well-healed scars, multiple positional exam no dominant masses or nodules of concern Right axilla: No adenopathy of concern Left breast: Well-healed scars, no dominant masses or nodules of concern Left axilla: No adenopathy of concern Assessment and Plan Assessment: Impression: Patient status post right breast lumpectomy via reduction mammoplasty incision sentinel node biopsy and [address]704, T1N0M0 ER/[place] positive HER-2/lillian negative grade 2 invasive lobular carcinoma Plan: Patient has opted to not undergo radiation therapy Patient is going to have hormone therapy as well as taxol and aromatase inhibit or follow up in 4 months CC: Dr. Walton
== END ==
LOC: WWCWWP 15:23
PROVIDERS: ATTEND Surgery
DX: Z85.3 Personal history of malignant neoplasm of breast (principal); C50.912 Malignant neoplasm of unspecified site of left female breast; E78.5 Hyperlipidemia, unspecified; I10 Essential (primary) hypertension; J45.909 Unspecified asthma, uncomplicated; K21.9 Gastro-esophageal reflux disease without esophagitis; Z17.0 Estrogen receptor positive status [ER+]; Z79.811 Long term (current) use of aromatase inhibitors; Z87.442 Personal history of urinary calculi; Z90.49 Acquired absence of other specified parts of digestive tract; Z98.84 Bariatric surgery status; Z91.048 Other nonmedicinal substance allergy status; Z91.041 Radiographic dye allergy status

== ENCOUNTER → 2023-04-08 | Outpatient (CLI) | payer MEDICARE, BC ==
--- NOTE | 2023-04-08 15:52 | MM ---
Reason for Exam: Additional evaluation requested from abnormal screening. Last screening mammogram was performed 12 month(s) ago. Patient History: Menarche at age 17. First Full-Term at age 19. Left ovary removed at age 40. Right ovary removed at age 40. Hysterectomy at age 40. Postmenopausal. Other cancer. Breast cancer, left, age 80. Breast cancer, right, age 81. Breast cancer, right, age 81. Previous chest radiation therapy. Previous chemotherapy. Patient used Estrogen for 25 years. Patient used Hormonal Contraceptives for 15 years. 05/11/2022, Lumpectomy on the Right side. 05/11/2022, Malignant MG pre op needle loc RT on the right side. 04/06/2022, Malignant US biopsy breast VAD RT on the right side. 05/14/2021, US biopsy breast VAD LT - 2 on the Left side. 08/04/2021, Lumpectomy on the Left side. 08/04/2021, Lumpectomy on the Left side. 08/04/2021, Malignant Core Biopsy on the left side. Prior Study Comparison: 07/10/2015 Bilateral Screening Mammogram, [facility]. 03/22/2019 Screening Mammogram, Unknown. 10/09/2019 Left Diagnostic Mammogram, [facility]. 04/17/2021 Bilateral MG 3D screening mammo w/cad, [facility]. 04/05/2022 Bilateral MG 3D diag mammo w/cad [facility], [facility]. 04/06/2022 Right MG diagnostic mammo RT wo CAD, [facility]. Tissue Density: There are scattered fibroglandular densities. Findings: Analyzed By CAD. Postsurgical and posttreatment change within the bilateral breasts. Subareolar focal asymmetry on the left remains unchanged from multiple priors. No no significant mass, suspicious microcalcification, or other discrete abnormality is seen. Ongoing short interval follow-up recommended to assess for any evolving posttreatment changes. Overall Assessment: Probably benign, BI-RAD 3 Management: Diagnostic Mammogram of both breasts in 6 months. To assess for any evolving posttreatment changes. Results were given to the patient verbally at the time of exam. Patient should continue monthly self-breast exams. A clinical breast exam by your physician is recommended on an annual basis. This exam should not preclude additional follow-up of suspicious palpable abnormalities. Electronically signed and approved by: Cuco Guan M.D. Radiologist
== END | disposition home or self-care (01) ==
LOC: RADMAMWWP 12:30
PROVIDERS: ATTEND Surgery
DX: R92.323 Mammographic fibroglandular density, bilateral breasts (principal); Z85.3 Personal history of malignant neoplasm of breast; Z78.0 Asymptomatic menopausal state; Z92.0 Personal history of contraception
CPT/HCPCS: 77066; G0279; 77062

== ENCOUNTER → 2023-04-14 | Outpatient (CLI) | payer MEDICARE, BC ==
--- NOTE | 2023-04-14 11:17 | P.PN ---
Subjective Progress Note Date: 04/14/23 04-14-23 Invasive ductal carcinoma right breast (2021)/status post treatment invasive lobular carcinoma left breast (2020) no radiation, no chemo, was on annestrazole The patient had a bilateral diagnostic mammogram performed on . This led to ultrasound of the right breast, which revealed a density in the upper-outer quadrant of the right breast measuring approximately 8 mm in size. An ultrasound core biopsy was subsequently performed on . This revealed microinvasive moderately differentiated ductal carcinoma grade 2 ER/[place] positive HER-2/lillian positive. It also revealed some ductal carcinoma in situ. The patient herself did not feel any lumps masses or nodules of concern in either breast. 2020 She did not have any chemotherapy or radiation therapy following the surgery for her left breast invasive lobular carcinoma, this was done on 4521. Final pathology revealed a 7 mm invasive lobular carcinoma grade 2 with closest margin 2 mm. At that time she did not have a sentinel node biopsy. She underwent a right breast lumpectomy and SNB on 05-11-22. This was done via a reduction mammoplasty incision. Taxol and Herceptin post operatively. She is on transtuzumab and anastrazole, should continue until Jun 2023. One week of radiation therapy, finished 10-08-22. She does not complain of any new lumps masses or nodules of concern in either breast. Bilateral mammogram on 04-08-23 BIRAD 3 bilateral mammograms in 6 months Caffiene: 3 cups coffee/day nicotine: none; never smoker chocolate: not eat it hormones: used them for 20 years after hysterectomy stopped 28 years ago BCP:20 years Family History: 2 brothers: prostate cancer; one also had kidney cancer patient: skin cancer, bilateral breast cancer Hormonal History: menarche: 15 , breast fed: no, age at first : 20 hysterectomy at 40 for prolapse; did not take her ovaries hormones: 20 years BCP: 20 years Surgical History: gastric bypass (lost 100 pounds) hiatal hernia repair Bladder suspension skin cancer bilateral reduction mammoplasty and SNB,for bilateral cancer Medical History: HTN (no longer takes medication since last week) anxiety low bone density Social History: nicotine: none alcohol:none drugs: none - Constitutional Constitutional: Denies chills, Denies fever - EENT Eyes: denies blurred vision, denies pain Ears: bilateral: tinnitus, deny: decreased hearing Ears, nose, mouth and throat: Denies headache, Denies sore throat - Breasts Breasts: bilateral: as per HPI - Cardiovascular Cardiovascular: Denies chest pain, Denies shortness of breath - Respiratory Respiratory: Denies cough - Gastrointestinal Gastrointestinal: Denies abdominal pain, Denies diarrhea, Denies nausea, Denies vomiting - Genitourinary (Female) Genitourinary: Reports kidney stones, Denies dysuria, Denies hematuria - Menstruation Menstruation: Reports as per HPI - Musculoskeletal Comment: arthritis - Integumentary Integumentary: Denies pruritus, Denies rash - Neurological Neurological: Denies numbness, Denies weakness - Psychiatric Psychiatric: Reports anxiety, Reports depression - Endocrine Comment: lost 100 pounds Endocrine: Reports weight change, Denies fatigue - Hematologic/Lymphatic Comment: none - Allergic/Immunologic Allergic/Immunologic: Reports as per HPI, Reports seasonal allergies Past Medical History Past Medical History: Asthma, Cancer, GERD/Reflux, Hyperlipidemia, Hypertension Additional Past Medical History / Comment(s): hx. hiatal hernia, hx skin cancer, vomiting since December [place]. meat but increasing recently w/most things, April 2017 pt dx with sepsis secondary to renal calculi (information provided by patient and daughter on 06/09/17) History of Any Multi-Drug Resistant Organisms: None Reported Past Surgical History: Appendectomy, Bladder Surgery, Hernia Repair, Hysterectomy Additional Past Surgical History / Comment(s): hiatal hernia repair, mayur-en-y, take down of luís, partial gastrectomy Past Anesthesia/Blood Transfusion Reactions: Motion Sickness Additional Past Anesthesia/Blood Transfusion Reaction / Comment(s): no blood tranfusions Past Psychological History: Anxiety, Depression Smoking Status: Never smoker Past Alcohol Use History: Rare Additional Past Alcohol Use History / Comment(s): only drinks one drink at occasional weddings Past Drug Use History: None Reported Objective - Vital Signs Vital signs: Vital Signs Temp 97.8 F 04/14/23 10:54 Pulse 58 L 04/14/23 10:54 Resp 17 04/14/23 10:54 BP 163/87 04/14/23 10:54 Pulse Ox 96 04/14/23 10:54 FiO2 Intake & Output 04/13/23 04/14/23 04/14/23 18:59 06:59 18:59 Weight 65.771 kg - Constitutional General appearance: Present: cooperative - EENT Eyes: Present: EOMI - Neck Neck: Present: normal ROM - Respiratory Respiratory: bilateral: CTA - Cardiovascular Heart sounds: normal: S1, S2 - Integumentary Integumentary: Present: normal turgor - Musculoskeletal Musculoskeletal: Present: gait normal - Psychiatric Psychiatric: Present: A&O x's 3, appropriate affect, intact judgment & insight - Additional findings Additional findings: Breast Exam: BRA: 36B Inspection: bilateral well healed scars; a slightly larger than right side Palpation: Right breast: Well-healed scars, multi-positional exam no dominant masses or nod ules of concern Right axilla: No adenopathy of concern Left breast: Well-healed scars, no dominant masses or nodules of concern Left axilla: No adenopathy of concern Assessment and Plan Assessment: mpression: Patient status post right breast lumpectomy via reduction mammoplasty incision sentinel node biopsy on , T1N0M0 ER/OR positive HER-2/lillian negative grade 2 invasive lobular carcinoma Right breast T1 N0 M0 triple positive invasive ductal carcinoma diagnosed 2021 Left breast T1 N0 M0 invasive lobular carcinoma ER/OR positive HER-2/lillian negative diagnosed 2020 bilateral mammogram 04-08-23 BIRAD 3 repeat bilateral mammogram in 6 months Plan: bilateral mammogram in 6 months continue to follow with medical oncology follow up in 6 months CC: Dr. Walton
[2023-04-14 11:19] VITALS: BP 163/87; PULSE 58; RESP 17; TEMP 97.8
== END ==
LOC: WWCWWP 10:41
PROVIDERS: ATTEND Surgery
DX: C50.911 Malignant neoplasm of unspecified site of right female breast (principal); C50.912 Malignant neoplasm of unspecified site of left female breast; E78.5 Hyperlipidemia, unspecified; I10 Essential (primary) hypertension; J45.909 Unspecified asthma, uncomplicated; K21.9 Gastro-esophageal reflux disease without esophagitis; F41.9 Anxiety disorder, unspecified; F32.A Depression, unspecified; Z17.0 Estrogen receptor positive status [ER+]; Z87.442 Personal history of urinary calculi; Z90.49 Acquired absence of other specified parts of digestive tract; Z85.828 Personal history of other malignant neoplasm of skin; Z80.3 Family history of malignant neoplasm of breast; Z91.048 Other nonmedicinal substance allergy status; Z91.041 Radiographic dye allergy status; Z88.8 Allergy status to other drugs, medicaments and biological substances; Z79.899 Other long term (current) drug therapy

== ENCOUNTER → 2023-10-17 | Outpatient (CLI) | payer MEDICARE, BC ==
--- NOTE | 2023-10-17 15:09 | MM ---
Reason for Exam: Follow-up at short interval from prior study. Last screening mammogram was performed 6 month(s) ago. Patient History: Menarche at age 17. First Full-Term at age 19. Left ovary removed at age 40. Right ovary removed at age 40. Hysterectomy at age 40. Postmenopausal. Other cancer. Breast cancer, left, age 80. Breast cancer, right, age 81. Breast cancer, right, age 81. Previous chest radiation therapy at age 81. Previous chemotherapy at age 81. Patient used Estrogen for 25 years. Patient used Hormonal Contraceptives for 15 years. 05/11/2022, Lumpectomy on the Right side. 05/11/2022, Malignant MG pre op needle loc RT on the right side. 04/06/2022, Malignant US biopsy breast VAD RT on the right side. 05/14/2021, US biopsy breast VAD LT - 2 on the Left side. 08/04/2021, Lumpectomy on the Left side. 08/04/2021, Lumpectomy on the Left side. 08/04/2021, Malignant Core Biopsy on the left side. Tissue Density: There are scattered areas of fibroglandular density. Findings: Analyzed By CAD. The pattern is stable . Postlumpectomy changes are within the bilateral breasts. Benign spherical calcifications right breast. There are some scattered benign calcifications. No suspicious groups of microcalcifications, spiculated or lobular masses, architectural distortion or other secondary signs of malignancy are mammographically apparent. Overall Assessment: Benign, BI-RAD 2 Management: Diagnostic Mammogram of both breasts in 1 year. A negative mammogram report should not preclude additional follow up of suspicious palpable abnormalities. Patient should continue monthly self breast exam. A clinical breast exam by your physician is recommended on an annual basis and results should be correlated with mammographic findings. Note on Kathie scores and lifetime risk: 1. A Kathie score greater than 3% is considered moderate risk. If this is the case, consider specialist referral to assess eligibility for a risk reducing agent. 2. If overall lifetime risk for the development of breast cancer is 20% or higher, the patient may qualify for future screening with alternating mammogram and breast MRI. Electronically signed and approved by: Gustavo Cruz D.O. Radiologis
== END | disposition home or self-care (01) ==
LOC: RADMAMWWP 14:43
PROVIDERS: ATTEND Surgery
DX: C50.912 Malignant neoplasm of unspecified site of left female breast (principal); Z85.3 Personal history of malignant neoplasm of breast; C50.911 Malignant neoplasm of unspecified site of right female breast; Z90.721 Acquired absence of ovaries, unilateral
CPT/HCPCS: 77066; G0279; 77062

== ENCOUNTER → 2023-10-31 | Outpatient (CLI) | payer MEDICARE, BC ==
--- NOTE | 2023-10-31 13:15 | P.PN ---
Subjective Progress Note Date: 10/31/23 04/14/23 Invasive ductal carcinoma right breast (2021)/status post treatment invasive lobular carcinoma left breast (2020) no radiation, no chemo, was on annestrazole The patient had a bilateral diagnostic mammogram performed on . This led to ultrasound of the right breast, which revealed a density in the upper-outer quadrant of the right breast measuring approximately 8 mm in size. An ultrasound core biopsy was subsequently performed on . This revealed m icroinvasive moderately differentiated ductal carcinoma grade 2 ER/[place] positive HER-2/lillian positive. It also revealed some ductal carcinoma in situ. The patient herself did not feel any lumps masses or nodules of concern in either breast. 2020 She did not have any chemotherapy or radiation therapy following the surgery for her left breast invasive lobular carcinoma, this was done on 4521. Final pathology revealed a 7 mm invasive lobular carcinoma grade 2 with closest margin 2 mm. At that time she did not have a sentinel node biopsy. She underwent a right breast lumpectomy and SNB on 05-11-22. This was done via a reduction mammoplasty incision. 5 mm invasive ductal, grade 2, 2 lymph nodes negative for metastatic disease DCIS was not identified ER+Pr+Her2+ Taxol and Herceptin post operatively. She than received transtuzumab and anastrazole, should continue until Jun 2023. One week of radiation therapy, finished 10-08-22. She does not complain of any new lumps masses or nodules of concern in either breast. Bilateral mammogram on 04-08-23 BIRAD 3 bilateral mammograms in 6 months Bilateral mammogram on 10-17-23 BIRAD 2 She is not complaining of any new lumps masses or nodules of concern. She is presently on annestrazole. Caffiene: 3 cups coffee/day nicotine: none; never smoker chocolate: not eat it hormones: used them for 20 years after hysterectomy stopped 28 years ago BCP:20 years Note medical oncology Dr. Downing 08-18-2023 reviewed patient is presently on anastrozole she was offered a monoclonal antibody and declined neratinimab Family History: 2 brothers: prostate cancer; one also had kidney cancer patient: skin cancer, bilateral breast cancer Hormonal History: menarche: 15 , breast fed: no, age at first : 20 hysterectomy at 40 for prolapse; did not take her ovaries hormones: 20 years BCP: 20 years Surgical History: gastric bypass (lost 100 pounds) hiatal hernia repair Bladder suspension skin cancer bilateral reduction mammoplasty and SNB,for bilateral cancer Medical History: HTN (no longer takes medication since last week) anxiety low bone density Social History: nicotine: none alcohol:none drugs: none - Constitutional Constitutional: Denies chills, Denies fever - EENT Eyes: denies blurred vision, denies pain Ears: bilateral: tinnitus, deny: decreased hearing Ears, nose, mouth and throat: Denies headache, Denies sore throat - Breasts Breasts: bilateral: as per HPI - Cardiovascular Cardiovascular: Denies chest pain, Denies shortness of breath - Respiratory Respiratory: Denies cough - Gastrointestinal Gastrointestinal: Denies abdominal pain, Denies diarrhea, Denies nausea, Denies vomiting - Genitourinary (Female) Genitourinary: Reports kidney stones, Denies dysuria, Denies hematuria - Menstruation Menstruation: Reports as per HPI - Musculoskeletal Comment: arthritis - Integumentary Integumentary: Denies pruritus, Denies rash - Neurological Neurological: Denies numbness, Denies weakness - Psychiatric Psychiatric: Reports anxiety, Reports depression - Endocrine Comment: lost 100 pounds Endocrine: Reports weight change, Denies fatigue - Hematologic/Lymphatic Comment: none - Allergic/Immunologic Allergic/Immunologic: Reports as per HPI, Reports seasonal allergies Past Medical History Past Medical History: Asthma, Cancer, GERD/Reflux, Hyperlipidemia, Hypertension Additional Past Medical History / Comment(s): hx. hiatal hernia, hx skin cancer, vomiting since December [place]. meat but increasing recently w/most things, April 2017 pt dx with sepsis secondary to renal calculi (information provided by patient and daughter on 06/09/17) History of Any Multi-Drug Resistant Organisms: None Reported Past Surgical History: Appendectomy, Bladder Surgery, Hernia Repair, Hysterectomy Additional Past Surgical History / Comment(s): hiatal hernia repair, mayur-en-y, take down of luís, partial gastrectomy Past Anesthesia/Blood Transfusion Reactions: Motion Sickness Additional Past Anesthesia/Blood Transfusion Reaction / Comment(s): no blood tranfusions Past Psychological History: Anxiety, Depression Smoking Status: Never smoker Past Alcohol Use History: Rare Additional Past Alcohol Use History / Comment(s): only drinks one drink at occasional weddings Past Drug Use History: None Reported Objective - Constitutional General appearance: Present: cooperative - EENT Eyes: Present: EOMI ENT: Present: hearing grossly normal - Neck Neck: Present: normal ROM - Respiratory Respiratory: bilateral: CTA - Cardiovascular Rhythm: regular Heart sounds: normal: S1, S2 - Integumentary Integumentary: Present: normal turgor - Musculoskeletal Musculoskeletal: Present: gait normal - Psychiatric Psychiatric: Present: A&O x's 3, appropriate affect, intact judgment & insight - Additional findings Additional findings: Breast Exam: BRA: 36B Inspection: bilateral well healed scars; left breast slightly larger than right side Palpation: Right breast: Well-healed scars, multi-positional exam no dominant masses or nodules of concern Right axilla: No adenopathy of concern Left breast: Well-healed scars, no dominant masses or nodules of concern Left axilla: No adenopathy of concern Assessment and Plan Assessment: Impression: Patient status post right breast lumpectomy via reduction mammoplasty incision sentinel node biopsy on , T1N0M0 ER/[place] positive HER-2/lillian negative grade 2 invasive lobular carcinoma Right breast T1 N0 M0 triple positive invasive ductal carcinoma diagnosed 2021 Left breast T1 N0 M0 invasive lobular carcinoma ER/[place] positive HER-2/lillian negative diagnosed 2020 bilateral mammogram 04-08-23 BIRAD 3 repeat bilateral mammogram in 6 months Bilateral mammogram o10-17-23 BIRAD 2 personally reviewed and interpreted Plan: bilateral mammogram in September 2024 continue to follow with medical oncology follow up in 6 months CC: Dr. Walton
[2023-10-31 13:27] VITALS: BP 152/91; PULSE 66; RESP 16; TEMP 97.9
== END ==
LOC: WWCWWP 12:38
PROVIDERS: ATTEND Surgery
DX: C50.912 Malignant neoplasm of unspecified site of left female breast (principal); Z48.817 Encounter for surgical aftercare following surgery on the skin and subcutaneous tissue; Z17.0 Estrogen receptor positive status [ER+]; Z80.3 Family history of malignant neoplasm of breast; Z88.8 Allergy status to other drugs, medicaments and biological substances; Z91.048 Other nonmedicinal substance allergy status; Z91.041 Radiographic dye allergy status; Z91.09 Other allergy status, other than to drugs and biological substances

== ENCOUNTER → 2024-05-10 | Outpatient (CLI) | payer MEDICARE, BC ==
[2024-05-10 11:00] VITALS: BP 179/95; PULSE 62; RESP 17; TEMP 97.7
--- NOTE | 2024-05-10 11:22 | P.PN ---
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 This led to ultrasound of the right breast, which revealed a density in the upper-outer quadrant of the right breast measuring approximately 8 mm in size. An ultrasound core biopsy was subsequently performed on . This revealed microinvasive moderately differentiated ductal carcinoma grade 2 ER/NE positive HER-2/lillian positive. It also revealed some ductal carcinoma in situ. The patient herself did not feel any lumps masses or nodules of concern in either breast. 2020 She did not have any chemotherapy or radiation therapy following the surgery for her left breast invasive lobular carcinoma, this was done on 4521. Final pathology revealed a 7 mm invasive lobular carcinoma grade 2 with closest margin 2 mm. At that time she did not have a sentinel node biopsy. She underwent a right breast lumpectomy and SNB on 05-11-22. This was done via a reduction mammoplasty incision. 5 mm invasive ductal, grade 2, 2 lymph nodes negative for metastatic disease DCIS was not identified ER+Pr+Her2+ Taxol and Herceptin post operatively. She than received transtuzumab and anastrazole, should continue until Jun 2023. One week of radiation therapy, finished 10-08-22. She does not complain of any new lumps masses or nodules of concern in either breast. Bilateral mammogram on 04-08-23 BIRAD 3 bilateral mammograms in 6 months Bilateral mammogram on 10-17-23 BIRAD 2 note 03-16-24 medical oncology reviewed: continue anastrazole and reclast She is not complaining of any new lumps masses or nodules of concern in either breast She is presently on annestrazole. Caffiene: 3 cups coffee/day nicotine: none; never smoker chocolate: not eat it hormones: used them for 20 years after hysterectomy stopped 28 years ago BCP:20 years Note medical oncology Dr. Downing 08-18-2023 reviewed patient is presently on anastrozole she was offered a monoclonal antibody and declined neratinimab She has a new diagnosis of skin cancer on her back, not melanoma Family History: 2 brothers: prostate cancer; one also had kidney cancer patient: skin cancer, bilateral breast cancer Hormonal History: menarche: 15 , breast fed: no, age at first : 20 hysterectomy at 40 for prolapse; did not take her ovaries hormones: 20 years BCP: 20 years Surgical History: gastric bypass (lost 100 pounds) hiatal hernia repair Bladder suspension skin cancer bilateral reduction mammoplasty and SNB,for bilateral cancer surgery in the back skin cancer Medical History: HTN (no longer takes medication since last week) anxiety low bone density Social History: nicotine: none alcohol:none drugs: none - Constitutional Constitutional: Denies chills, Denies fever - EENT Eyes: denies blurred vision, denies pain Ears: bilateral: tinnitus, deny: decreased hearing Ears, nose, mouth and throat: Denies headache, Denies sore throat - Breasts Breasts: bilateral: as per HPI - Cardiovascular Cardiovascular: Denies chest pain, Denies shortness of breath - Respiratory Respiratory: Denies cough - Gastrointestinal Gastrointestinal: Denies abdominal pain, Denies diarrhea, Denies nausea, Denies vomiting - Genitourinary (Female) Genitourinary: Reports kidney stones, Denies dysuria, Denies hematuria - Menstruation Menstruation: Reports as per HPI - Musculoskeletal Comment: arthritis - Integumentary Integumentary: Denies pruritus, Denies rash - Neurological Neurological: Denies numbness, Denies weakness - Psychiatric Psychiatric: Reports anxiety, Reports depression - Endocrine Comment: lost 100 pounds Endocrine: Reports weight change, Denies fatigue - Hematologic/Lymphatic Comment: none - Allergic/Immunologic Allergic/Immunologic: Reports as per HPI, Reports seasonal allergies Past Medical History Past Medical History: Asthma, Cancer, GERD/Reflux, Hyperlipidemia, Hypertension Additional Past Medical History / Comment(s): hx. hiatal hernia, hx skin cancer, vomiting since December edgard. meat but increasing recently w/most things, April 2017 pt dx with sepsis secondary to renal calculi (information provided by patient and daughter on 06/09/17) History of Any Multi-Drug Resistant Organisms: None Reported Past Surgical History: Appendectomy, Bladder Surgery, Hernia Repair, Hysterectomy Additional Past Surgical History / Comment(s): hiatal hernia repair, mayur-en-y, take down of ulís, partial gastrectomy Past Anesthesia/Blood Transfusion Reactions: Motion Sickness Additional Past Anesthesia/Blood Transfusion Reaction / Comment(s): no blood tranfusions Past Psychological History: Anxiety, Depression Smoking Status: Never smoker Past Alcohol Use History: Rare Additional Past Alcohol Use History / Comment(s): only drinks one drink at occasional weddings Past Drug Use History: None Reported Objective - Vital Signs Vital signs: Vital Signs Temp 97.7 F 05/10/24 10:58 Pulse 62 05/10/24 10:58 Resp 17 05/10/24 10:58 BP 179/95 05/10/24 10:58 Pulse Ox 98 05/10/24 10:58 FiO2 Intake & Output 05/09/24 05/10/24 05/10/24 18:59 06:59 18:59 Weight 65.771 kg - Constitutional General appearance: Present: cooperative - EENT Eyes: Present: EOMI ENT: Present: hearing grossly normal - Neck Neck: Present: normal ROM - Respiratory Respiratory: bilateral: CTA - Cardiovascular Rhythm: regular Heart sounds: normal: S1, S2 - Integumentary Integumentary: Present: normal turgor - Musculoskeletal Musculoskeletal: Present: gait normal - Psychiatric Psychiatric: Present: A&O x's 3, appropriate affect, intact judgment & insight - Additional findings Additional findings: Breast Exam: BRA: 36B Inspection: bilateral well healed scars; left breast slightly larger than right side Palpation: Right breast: Well-healed scars, multi-positional exam no dominant masses or nodules of concern Right axilla: No adenopathy of concern Left breast: Well-healed scars, no dominant masses or nodules of concern Left axilla: No adenopathy of concern There is a scar on her right back with suture still intact where she had a skin lesion removed at the product support specialist office recently. She is waiting for the pathology on this. Assessment and Plan Assessment: Impression: Patient status post right breast lumpectomy via reduction mammoplasty incision sentinel node biopsy on , [id number] ER/NE positive HER-2/lillian + grade 2 invasive ductal carcinoma Left breast T1 N0 M0 invasive lobular carcinoma ER/NE positive HER-2/lillian negative diagnosed 2020 bilateral mammogram 04-08-23 BIRAD 3 repeat bilateral mammogram in 6 months Bilateral mammogram 10-17-23 BIRAD 2 personally reviewed and interpreted Plan: bilateral mammogram in September 2024 continue to follow with medical oncology follow up in 6 months 20 minutes spent in records, examining patient, and explaining treatment plan CC: Dr. Walton
== END ==
LOC: WWCWWP 10:43
PROVIDERS: ATTEND Surgery
DX: C50.912 Malignant neoplasm of unspecified site of left female breast (principal); R92.8 Other abnormal and inconclusive findings on diagnostic imaging of breast; Z90.12 Acquired absence of left breast and nipple; Z17.0 Estrogen receptor positive status [ER+]; Z17.21 Progesterone receptor positive status; Z91.041 Radiographic dye allergy status; Z91.09 Other allergy status, other than to drugs and biological substances; Z88.8 Allergy status to other drugs, medicaments and biological substances

== ENCOUNTER → 2024-10-17 | Outpatient (CLI) | payer MEDICARE, BC ==
--- NOTE | 2024-10-19 07:00 | MM ---
Reason for Exam: Clinical finding. Last screening mammogram was performed 12 month(s) ago. Indicated Problems: Lump or thickening of the right side for 3 Month(s). Patient History: Menarche at age 17. First Full-Term at age 19. Left ovary removed at age 40. Right ovary removed at age 40. Hysterectomy at age 40. Postmenopausal. Other cancer. Breast cancer, left, age 80. Breast cancer, right, age 81. Breast cancer, right, age 81. Previous chest radiation therapy at age 81. Previous chemotherapy at age 81. Patient used Estrogen for 25 years. Patient used Hormonal Contraceptives for 15 years. 05/11/2022, Lumpectomy on the Right side. 05/11/2022, Malignant MG pre op needle loc RT on the right side. 04/06/2022, Malignant US biopsy breast VAD RT on the right side. 05/14/2021, US biopsy breast VAD LT - 2 on the Left side. 08/04/2021, Lumpectomy on the Left side. 08/04/2021, Lumpectomy on the Left side. 08/04/2021, Malignant Core Biopsy on the left side. Prior Study Comparison: 07/10/2015 Bilateral Screening Mammogram, [facility]. 03/22/2019 Screening Mammogram, Unknown. 10/09/2019 Left Diagnostic Mammogram, [facility]. 10/09/2019 Left Diagnostic Ultrasound, [facility]. 04/17/2021 Bilateral MG 3D screening mammo w/cad, [facility]. 04/05/2022 Right US breast limited RT, [facility]. 04/05/2022 Bilateral MG 3D diag mammo w/cad KYLIE, [facility]. 04/06/2022 Right MG diagnostic mammo RT wo CAD, [facility]. 04/08/2023 Bilateral MG 3D diag mammo w/cad KYLIE, [facility]. 10/17/2023 Bilateral MG 3D diag mammo w/cad KYLIE, [facility]. Tissue Density: There are scattered areas of fibroglandular density. Findings: Analyzed By CAD. Postsurgical and posttreatment change redemonstrated both breasts. An area of early calcifying oil cyst/fat necrosis measuring 1.9 cm is located posteriorly upper outer quadrant. This may correspond to the patient's palpable site. Further ultrasound evaluation is recommended. Otherwise, no significant change. Overall Assessment: Incomplete: need additional imaging evaluation, BI-RAD 0 Management: Diagnostic Breast Ultrasound of the right breast. [facility], , 10/17/2024 12:32 PM. Electronically signed and approved by: Cuco Guan M.D. Radiologist
--- NOTE | 2024-10-19 07:02 | USB ---
Reason for Exam: Additional evaluation requested from prior study. Patient History: Menarche at age 17. First Full-Term at age 19. Left ovary removed at age 40. Right ovary removed at age 40. Hysterectomy at age 40. Postmenopausal. Other cancer. Breast cancer, left, age 80. Breast cancer, right, age 81. Breast cancer, right, age 81. Previous chest radiation therapy at age 81. Previous chemotherapy at age 81. Patient used Estrogen for 25 years. Patient used Hormonal Contraceptives for 15 years. 05/11/2022, Lumpectomy on the Right side. 05/11/2022, Malignant MG pre op needle loc RT on the right side. 04/06/2022, Malignant US biopsy breast VAD RT on the right side. 05/14/2021, US biopsy breast VAD LT - 2 on the Left side. 08/04/2021, Lumpectomy on the Left side. 08/04/2021, Lumpectomy on the Left side. 08/04/2021, Malignant Core Biopsy on the left side. Technique: Method: Targeted. Prior Study Comparison: 04/06/2022 Right MG diagnostic mammo RT wo CAD, [facility]. 04/08/2023 Bilateral MG 3D diag mammo w/cad KYLIE, [facility]. 10/17/2023 Bilateral MG 3D diag mammo w/cad KYLIE, [facility]. Findings: The area of palpable concern of the right breast, the axilla of the right breast and the retroareolar of the right breast were scanned. Ultrasound right breast 10 and 11:00 including scanning of the subareolar region and axilla. Scanning of the patient's 10:00 palpable site, 4 cm from the nipple shows a 2.9 x 1.8 x 1.8 cm mildly lobulated hypoechoic lesion with posterior through transmission. This may correspond to area of fat necrosis/oil cyst on mammogram. However, advise imaging findings are nonspecific on ultrasound and as this is a new palpable area, sampling is recommended. At 11:00, 2 cm from the nipple, there is either a complex cyst versus cyst cluster measuring 7 x 7 x 5 mm. 6 month follow-up to reassess. At 11:00, 3 cm from the nipple, there is a benign 6 mm cyst. No other solid or cystic lesion or axillary adenopathy. Overall Assessment: Suspicious, BI-RAD 4 Management: Ultrasound-Guided Core Biopsy of the right breast. Results were given to the patient verbally at the time of exam. [facility], , 10/17/2024 11:57 AM. Electronically signed and approved by: Cuco Guan M.D. Radiologist
== END | disposition home or self-care (01) ==
LOC: RADMAMWWP 10:53
PROVIDERS: ATTEND Surgery
DX: R92.323 Mammographic fibroglandular density, bilateral breasts (principal); Z85.3 Personal history of malignant neoplasm of breast; Z78.0 Asymptomatic menopausal state; Z92.0 Personal history of contraception
CPT/HCPCS: 77066; 76642; G0279; 77062

== ENCOUNTER → 2024-10-22 | Day surgery (SDC) | payer MEDICARE, BC ==
--- NOTE | 2024-10-29 14:04 | MM ---
Reason for Exam: Post Procedure Mammogram. Last screening mammogram was performed less than 1 month ago. Patient History: Menarche at age 17. First Full-Term at age 19. Left ovary removed at age 40. Right ovary removed at age 40. Hysterectomy at age 40. Postmenopausal. Other cancer. Breast cancer, left, age 80. Breast cancer, right, age 81. Breast cancer, right, age 81. Previous chest radiation therapy at age 81. Previous chemotherapy at age 81. Patient used Estrogen for 25 years. Patient used Hormonal Contraceptives for 15 years. 05/11/2022, Lumpectomy on the Right side. 05/11/2022, Malignant MG pre op needle loc RT on the right side. 04/06/2022, Malignant US biopsy breast VAD RT on the right side. 05/14/2021, US biopsy breast VAD LT - 2 on the Left side. 08/04/2021, Lumpectomy on the Left side. 08/04/2021, Lumpectomy on the Left side. 08/04/2021, Malignant Core Biopsy on the left side. Prior Study Comparison: 07/10/2015 Bilateral Screening Mammogram, [facility]. 03/22/2019 Screening Mammogram, Unknown. 10/09/2019 Left Diagnostic Mammogram, [facility]. 04/17/2021 Bilateral MG 3D screening mammo w/cad, [facility]. 04/05/2022 Bilateral MG 3D diag mammo w/cad KYLIE, [facility]. 04/06/2022 Right MG diagnostic mammo RT wo CAD, [facility]. 04/08/2023 Bilateral MG 3D diag mammo w/cad KYLIE, [facility]. 10/17/2023 Bilateral MG 3D diag mammo w/cad KYLIE, [facility]. 10/17/2024 Right US breast limited RT, [facility]. 10/17/2024 Bilateral MG 3D diag mammo w/cad KYLIE, [facility]. Tissue Density: Right: There are scattered areas of fibroglandular density. Pathology Description: Location: 10 o'clock, upper outer quadrant. Marker Left Behind. Needle Type: Mammotome Cores: 5 Skin Nicks: 1 Gauge: 13 The procedure of ultrasound guided core biopsy was explained to the patient. Benefits, alternatives, and risks were discussed. An informed consent was then obtained. The patient was placed in supine positioning for imaging and for the procedure. The overlying skin was prepped and draped in usual sterile fashion. Lidocaine buffered with bicarbonate was used as anesthetic into the skin and subcutaneous tissue up to area of concern in the right breast. A lauro was made with surgical scalpel. Under ultrasound guidance, a 12-gauge vacuum assisted biopsy gun device was used to obtain 5 core samples. Following this, a biopsy clip was left in lesion. The patient tolerated the procedure well without any immediate complication. The patient was kept in the radiology department for short stay after the procedure and then discharged home in stable condition. Postprocedure mammogram: The patient was transferred to mammography for physician ordered post procedure mammogram for clip placement verification. Post procedure mammogram demonstrates appropriate placement of clip. Impression: Successful, uncomplicated ultrasound guided core biopsy of mass in the right breast breast, full pathology results to follow. [facility], , 10/22/2024 1:21 PM. Pathology Results: Result: Benign, Fat necrosis. Pathology and radiology were reviewed. Findings are concordant. RIGHT BREAST, 10:00, ULTRASOUND GUIDED CORE BIOPSY: Fat necrosis with fibrous scar and focal chronic mastitis (see note). Notes Additional tissue levels are examined, and the findings remain unchanged. Overall Assessment: Benign Assessment: MG diagnostic mammo RT wo CAD - Right: Benign, BI-RAD 2. Management: Diagnostic Mammogram of the right breast in 6 months. Electronically signed and approved by: DO COLT Nava
== END ==
LOC: RADUSWWP 11:37
PROVIDERS: ATTEND Surgery
DX: N61.0 Mastitis without abscess (principal); N64.1 Fat necrosis of breast; L90.5 Scar conditions and fibrosis of skin; Z78.0 Asymptomatic menopausal state; Z85.3 Personal history of malignant neoplasm of breast; Z90.721 Acquired absence of ovaries, unilateral
CPT/HCPCS: 88305; 77065; 19083; A4648

== ENCOUNTER → 2024-11-23 | Outpatient (CLI) | payer MEDICARE, BC ==
[2024-11-23 11:55] VITALS: BP 214/112; PULSE 64; RESP 18; TEMP 98.3
--- NOTE | 2024-11-23 12:08 | P.PN ---
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 This led to ultrasound of the right breast, which revealed a density in the upper-outer quadrant of the right breast measuring approximately 8 mm in size. An ultrasound core biopsy was subsequently performed on . This revealed microinvasive moderately differentiated ductal carcinoma grade 2 ER/ND positive HER-2/lillian positive. It also revealed some ductal carcinoma in situ. The patient herself did not feel any lumps masses or nodules of concern in either breast. 2020 She did not have any chemotherapy or radiation therapy following the surgery for her left breast invasive lobular carcinoma, this was done on 4521. Final pathology revealed a 7 mm invasive lobular carcinoma grade 2 with closest margin 2 mm. At that time she did not have a sentinel node biopsy. She underwent a right breast lumpectomy and SNB on 05-11-22. This was done via a reduction mammoplasty incision. 5 mm invasive ductal, grade 2, 2 lymph nodes negative for metastatic disease DCIS was not identified ER+Pr+Her2+ Taxol and Herceptin post operatively. She than received transtuzumab and anastrazole, should continue until Jun 2023. One week of radiation therapy, finished 10-08-22. She does not complain of any new lumps masses or nodules of concern in either breast. Bilateral mammogram on 04-08-23 BIRAD 3 bilateral mammograms in 6 months Bilateral mammogram on 10-17-23 BIRAD 2 note 03-16-24 medical oncology reviewed: continue anastrazole and reclast She is not complaining of any new lumps masses or nodules of concern in either breast She is presently on annestrazole. 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 Final pathology revealed a 7 mm invasive lobular carcinoma grade 2 with closest margin 2 mm. At that time she did not have a sentinel node biopsy. She underwent a right breast lumpectomy and SNB on 05-11-22. This was done via a reduction mammoplasty incision. 5 mm invasive ductal, grade 2, 2 lymph nodes negative for metastatic disease DCIS was not identified ER+Pr+Her2+ Taxol and Herceptin post operatively. She than received transtuzumab and anastrazole, should continue until Jun 2023. One week of radiation therapy, finished 10-08-22. She can continues to take anastrozole and is doing well with this. bilateral mammogram on 10-17-24 BIRAD 0 right breast ultrasound; ultrasound done on 10-17-24 sampling of a 2.9 by 1.8 cm area od mildly lobulated hypoechoic lesion noted, biopsy recommended. Additional cyst noted at 11:00 follow in 6 months. The patient had felt some increased nodularity in the right breast approximately 3 months ago which precipitated the ultrasound leading to the core biopsy. It is felt that the core biopsy was performed of the area of concern that the patient was able to feel. core biopsy of the lesion in the right breast done on 10-22-24 fat necrosis with scar findings concordant recommend right breast mammogram and ultrasound in 6 months Caffiene: 3 cups coffee/day nicotine: none; never smoker chocolate: not eat it hormones: used them for 20 years after hysterectomy stopped 28 years ago BCP:20 years Note medical oncology Dr. Downing 08-18-2023 reviewed patient is presently on anastrozole she was offered a monoclonal antibody and declined neratinimab She has a new diagnosis of skin cancer on her back, not melanoma Family History: 2 brothers: prostate cancer; one also had kidney cancer patient: skin cancer, bilateral breast cancer Hormonal History: menarche: 15 , breast fed: no, age at first : 20 hysterectomy at 40 for prolapse; did not take her ovaries hormones: 20 years BCP: 20 years Surgical History: gastric bypass (lost 100 pounds) hiatal hernia repair Bladder suspension skin cancer bilateral reduction mammoplasty and SNB,for bilateral cancer surgery in the back skin cancer Medical History: HTN (no longer takes medication since last week) anxiety low bone density Social History: nicotine: none alcohol:none drugs: none - Constitutional Constitutional: Denies chills, Denies fever - EENT Eyes: denies blurred vision, denies pain Ears: bilateral: tinnitus, deny: decreased hearing Ears, nose, mouth and throat: Denies headache, Denies sore throat - Breasts Breasts: bilateral: as per HPI - Cardiovascular Cardiovascular: Denies chest pain, Denies shortness of breath - Respiratory Respiratory: Denies cough - Gastrointestinal Gastrointestinal: Denies abdominal pain, Denies diarrhea, Denies nausea, Denies vomiting - Genitourinary (Female) Genitourinary: Reports kidney stones, Denies dysuria, Denies hematuria - Menstruation Menstruation: Reports as per HPI - Musculoskeletal Comment: arthritis - Integumentary Integumentary: Denies pruritus, Denies rash - Neurological Neurological: Denies numbness, Denies weakness - Psychiatric Psychiatric: Reports anxiety, Reports depression - Endocrine Comment: lost 100 pounds Endocrine: Reports weight change, Denies fatigue - Hematologic/Lymphatic Comment: none - Allergic/Immunologic Allergic/Immunologic: Reports as per HPI, Reports seasonal allergies Past Medical History Past Medical History: Asthma, Cancer, GERD/Reflux, Hyperlipidemia, Hypertension Additional Past Medical History / Comment(s): hx. hiatal hernia, hx skin cancer, vomiting since December edgard. meat but increasing recently w/most things, April 2017 pt dx with sepsis secondary to renal calculi (information provided by patient and daughter on 06/09/17) History of Any Multi-Drug Resistant Organisms: None Reported Past Surgical History: Appendectomy, Bladder Surgery, Hernia Repair, Hysterectomy Additional Past Surgical History / Comment(s): hiatal hernia repair, mayur-en-y, take down of luís, partial gastrectomy Past Anesthesia/Blood Transfusion Reactions: Motion Sickness Additional Past Anesthesia/Blood Transfusion Reaction / Comment(s): no blood tranfusions Past Psychological History: Anxiety, Depression Smoking Status: Never smoker Past Alcohol Use History: Rare Additional Past Alcohol Use History / Comment(s): only drinks one drink at occasional weddings Past Drug Use History: None Reported Objective - Constitutional General appearance: Present: cooperative - EENT Eyes: Present: EOMI ENT: Present: hearing grossly normal - Neck Neck: Present: normal ROM - Respiratory Respiratory: bilateral: CTA - Cardiovascular Rhythm: regular Heart sounds: normal: S1, S2 - Integumentary Integumentary: Present: normal turgor - Musculoskeletal Musculoskeletal: Present: gait normal - Psychiatric Psychiatric: Present: A&O x's 3, appropriate affect, intact judgment & insight - Additional findings Additional findings: Breast Exam: BRA: 36B Inspection: bilateral well healed scars; left breast slightly larger than right side Palpation: Right breast: Well-healed scars, multi-positional exam no dominant masses or nodules of concern; fullness in the upper outer quadrant area believed to be related to scar tissue this is consistent with the area where biopsy was done, biopsy site clean and dry no evidence of hematoma or infection Right axilla: No adenopathy of concern Left breast: Well-healed scars, no dominant masses or nodules of concern Left axilla: No adenopathy of concern Assessment and Plan Assessment: Impression: Patient status post right breast lumpectomy via reduction mammoplasty incision sentinel node biopsy on , [id number] ER/ND positive HER-2/lillian + grade 2 invasive ductal carcinoma Left breast T1 N0 M0 invasive lobular carcinoma ER/ND positive HER-2/lillian negative diagnosed 2020 bilateral mammogram 04-08-23 BIRAD 3 repeat bilateral mammogram in 6 months Bilateral mammogram 10-17-23 BIRAD 2 personally reviewed and interpreted Plan: right breast mammogram and ultrasound in 6 months with appointment bilateral mammogram in September 2025 with appointment continue anastrazole continue to follow with medical oncology follow up in 6 months CC: Dr. Walton
== END ==
LOC: WWCWWP 11:02
PROVIDERS: ATTEND Surgery
DX: C50.911 Malignant neoplasm of unspecified site of right female breast (principal); C50.912 Malignant neoplasm of unspecified site of left female breast; Z98.890 Other specified postprocedural states; Z91.048 Other nonmedicinal substance allergy status; Z91.041 Radiographic dye allergy status; Z88.8 Allergy status to other drugs, medicaments and biological substances